=== PATIENT | female | born 1945 | race Caucasian/White ===

== ENCOUNTER → 2020-02-24 12:17 | Outpatient (CLI) | payer MEDICARE, OTHER, SELFPAY ==
--- NOTE | ~2020-02-24 | MM_ITS ---
EXAMINATION: MM screening richar LT w dylan HISTORY: Screening mammogram TECHNIQUE: Craniocaudal and mediolateral oblique 3-D tomosynthesis images were obtained and synthetic 2-D images were generated. CAD analysis was submitted and interpreted. COMPARISON: No prior mammogram is available for comparison at this institution. BREAST PARENCHYMAL COMPOSITION: There are scattered areas of fibroglandular density. FINDINGS: child monitor device overlies the left breast. There is no evidence of suspicious mass, c alcification, or architectural distortion to suggest malignancy in either breast. There has been no s uspicious interval change. IMPRESSION: 1. No mammographic evidence of malignancy. 2. Recommend routine screening mammography in one year. BI-RADS Category 1: Negative Reviewed, dictated and finalized at location A.
== END ==
PROVIDERS: Visit Provider Obstetrics & Gynecology
DX: Z12.31 Encounter for screening mammogram for malignant neoplasm of breast (principal)
CPT/HCPCS: 77063; 77067

== ENCOUNTER 2020-03-21 08:33 | Outpatient (CLI) | payer MEDICARE, OTHER, SELFPAY ==
--- NOTE | ~2020-03-21 | US_ITS ---
EXAMINATION: US carotid duplex BI DATE: 03/21/2020 09:43 INDICATION: Right visual disturbance. Floaters. TECHNIQUE: Grayscale, color Doppler, and pulsed Doppler images of the cervical carotid arteries were obtained. The degree of vessel stenosis is placed in one of the following categories: normal, <50%, 5 0-69%, >=70% but less than near-occlusion, near-occlusion, or total occlusion. Note that percent sten osis relative to normal distal artery lumen diameter is indirectly measured from velocity measurement s as described by Prince, et al. Radiology 2003; 229:340-346. Notes: Normal: Peak systolic velocity <125 centimeters/sec and no plaque <50%. Peak systolic velocity <125 ( EDV <40; ICA/CCA PSV ratio <2.0; used these factors only a tandem lesions or low cardiac output or co ntralateral disease) 50-69 %: PSV 125-230 (EDV 40-100; ratio 2-4) >= 70% but less than near occlusion: PSV greater than 230 (EDV > 100; ratio> 4.0) Near Occlusion: PSV that is variable; markedly narrowed lumen Occlusion: Absent flow on color/spectral Doppler and no lumen on zaidi scale. COMPARISON: None. FINDINGS: RIGHT: The right common carotid artery (CCA) peak systolic velocity (PSV) is 86 cm/s. The right internal car otid artery (ICA) PSV is 92 cm/s. The right ICA end-diastolic velocity (EDV) is 18 cm/s. The right IC A/CCA PSV ratio is 0.8. The external carotid artery (ECA) PSV is 102 cm/s. There is antegrade flow in the right vertebral artery. LEFT: The left CCA PSV is 89 cm/s. The left ICA PSV is 84 cm/s. The left ICA EDV is 18 cm/s. The left ICA/C CA PSV ratio is 0.9. The ECA PSV is 105 cm/s. There is antegrade flow in the left vertebral artery. IMPRESSION: 1. Less than 50% stenosis in the right internal carotid artery by sonographic criteria. 2. Less than 50% stenosis in the left internal carotid artery by sonographic criteria. Reviewed, dictated and finalized at location A. IMPRESSION: 1. Less than 50% stenosis in the right internal carotid artery by sonographic c trina. 2. Less than 50% stenosis in the left internal carotid artery by sonographic asad savage.
== END 2020-03-21 08:34 | disposition home or self-care (01) ==
PROVIDERS: PCP Family Medicine; Visit Provider Specialist
DX: H53.8 Other visual disturbances (principal)
CPT/HCPCS: 93880

== ENCOUNTER 2020-10-06 07:17 | Outpatient (CLI) | payer MEDICARE, OTHER, SELFPAY ==
[2020-10-06 07:54] LABS: Hematocrit 41.4 % (37.0-47.0); Hemoglobin 13.4 g/dL (12.0-15.0); Mean Corpuscular HGB Conc 32.4 g/dl (32-36); Mean Corpuscular Hemoglobin 31.4 pg (26-34); Mean Platelet Volume 9.9 fl (7.4-10.4); Platelet Count Result 161 k/mm3 (150-375); Red Blood Count 4.27 M/mm3 (4.2-5.4); Red Cell Distribution Width 12.7 % (11.5-14.5); White Blood Count 4.3 K/mm3 (4.5-10.0)
[2020-10-06 08:11] LABS: Alanine Aminotransferase 9 U/L (4-35); Albumin Level 4.2 g/dL (3.5-5.1); Alkaline Phosphatase 52 U/L (38-126); Anion Gap 5 mmol/L (8-16); Aspartate Amino Transferase 28 U/L (14-36); Bilirubin,Total 0.5 mg/dL (0.2-1.3); Blood Urea Nitrogen 15 mg/dL (7-17); Calcium 9.3 mg/dL (8.4-10.2); Carbon Dioxide 31 mmol/L (22-30); Chloride 106 mmol/L (98-107); Cholesterol 142 mg/dL (0-200); Estimated Glomerular Filt Rate > 60; Glucose 105 mg/dL (65-105); HDL Direct 66 mg/dL; Potassium 4.1 mmol/L (3.4-5.0); Sodium 142 mmol/L (137-145); Triglycerides 70 mg/dL (<150)
[2020-10-06 08:22] LABS: LDL Cholesterol Direct 50 mg/dL
[2020-10-06 09:36] LABS: Vitamin D 25 Hydroxy 33.5 ng/mL
== END 2020-10-06 07:18 | disposition home or self-care (01) ==
PROVIDERS: PCP Family Medicine; Visit Provider Nurse Practitioner Family
DX: E55.9 Vitamin D deficiency, unspecified (principal); F32.9 Major depressive disorder, single episode, unspecified; I10 Essential (primary) hypertension
CPT/HCPCS: 36415; 80053; 80061; 82306; 84443; 85027

== ENCOUNTER → 2021-02-24 11:24 | Outpatient (CLI) | payer MEDICARE, OTHER, SELFPAY ==
--- NOTE | ~2021-02-24 | MM_ITS ---
EXAMINATION: MM screening richar LT w dylan HISTORY: Screening TECHNIQUE: Craniocaudal and mediolateral oblique 3-D tomosynthesis images were obtained and synthetic 2-D images were generated. CAD analysis was submitted and interpreted. COMPARISON: Comparison to multiple prior studies sequentially, with oldest reviewed study dated 12/08. BREAST PARENCHYMAL COMPOSITION: The breasts are heterogeneously dense, which may obscure small masses . FINDINGS: There is no evidence of suspicious mass, calcification, or architectural distortion to sugg est malignancy in the left breast. There has been no suspicious interval change. IMPRESSION: 1. No mammographic evidence of malignancy. 2. Recommend routine screening mammography in one year. BI-RADS Category 1: Negative Reviewed, dictated and finalized at location A.
== END ==
PROVIDERS: Visit Provider Obstetrics & Gynecology
DX: Z12.31 Encounter for screening mammogram for malignant neoplasm of breast (principal)
CPT/HCPCS: 77063; 77067

== ENCOUNTER → 2021-03-29 14:47 | Outpatient (CLI) | payer MEDICARE, OTHER, SELFPAY ==
--- NOTE | ~2021-03-29 | XR_ITS ---
EXAMINATION: XR shoulder RT min 2V INDICATION: Right shoulder pain TECHNIQUE: Four views of the right shoulder are submitted. COMPARISON: 02/09/2017 FINDINGS: Normal alignment. No fracture. There is mild osteoarthritis of the glenohumeral joint. The acromioclavicular joint is unremarkable. Soft tissues are unremarkable. IMPRESSION: 1. No acute osseous abnormality. Reviewed, dictated and finalized at location A.
== END ==
PROVIDERS: PCP Nurse Practitioner Family; Visit Provider Nurse Practitioner Family
DX: M25.519 Pain in unspecified shoulder (principal)
CPT/HCPCS: 73030

== ENCOUNTER → 2021-05-28 13:34 | Outpatient (CLI) | payer MEDICARE, OTHER, SELFPAY ==
--- NOTE | ~2021-05-28 | XR_ITS ---
XR wrist RT 2V DATE: 05/28/2021 13:51 INDICATION: Right arm pain TECHNIQUE: AP and lateral views of right wrist COMPARISON: None FINDINGS: Diffuse osteopenia. No fracture or dislocation, periosteal reaction or bone destruction. Joint spaces appear relatively p reserved. No erosive change or chondrocalcinosis. IMPRESSION: Osteopenia Reviewed, dictated and finalized at location A. RCE MEDIATOR IMPRESSION: Osteopenia
== END ==
PROVIDERS: PCP Family Medicine; Visit Provider Nurse Practitioner Family
DX: M85.831 Other specified disorders of bone density and structure, right forearm (principal)
CPT/HCPCS: 73100

== ENCOUNTER 2021-07-26 09:21 | Outpatient (CLI) | payer MEDICARE, OTHER, SELFPAY ==
--- NOTE | 2021-07-26 11:00 | NEURO_ITS ---
Impression: # Complains of paresthesia of upper extremities. # No Carpal Tunnel Syndrome or ulnar neuropathy. # Normal nerve conduction study. # Normal needle/EMG exam. # Clinical correlation recommended. Nerve Conduction Studies Anti Sensory Summary Table Stim Site NR Peak (ms) P-T Amp (?V) Site1 Site2 Delta-P (ms) Dist (cm) Dameon (m/s) Left Median Anti Sensory (2-3nd Digit) Wrist 2.8 76.0 Wrist 2-3nd Digit 2.8 14.0 50 Wrist 3.0 54.7 Wrist 2-3nd Digit 2.8 14.0 50 Right Median Anti Sensory (2-3nd Digit) Wrist 3.1 42.7 Wrist 2-3nd Digit 3.1 14.0 45 Wrist 3.2 41.9 Wrist 2-3nd Digit 3.1 14.0 45 Left Radial Anti Sensory (Base 1st Digit) Wrist 2.3 74.8 Wrist Base 1st Digit 2.3 0.0 Right Radial Anti Sensory (Base 1st Digit) Wrist 2.7 17.9 Wrist Base 1st Digit 2.7 0.0 Left Ulnar Anti Sensory (5th Digit) Wrist 2.6 54.8 Wrist 5th Digit 2.6 14.0 54 Right Ulnar Anti Sensory (5th Digit) Wrist 2.7 43.1 Wrist 5th Digit 2.7 14.0 52 Motor Summary Table Stim Site NR Onset (ms) O-P Amp (mV) Site1 Site2 Delta-0 (ms) Dist (cm) Dameon (m/s) Left Median Motor (Abd Poll Brev) Wrist 3.1 4.5 Elbow Wrist 4.9 29.0 59 Elbow 8.0 2.9 Right Median Motor (Abd Poll Brev) Wrist 3.5 4.2 Elbow Wrist 5.0 29.0 58 Elbow 8.5 2.6 Left Ulnar Motor (Abd Dig Minimi) Wrist 2.3 3.8 A Elbow Wrist 4.9 28.0 57 A Elbow 7.2 3.8 Right Ulnar Motor (Abd Dig Minimi) Wrist 2.7 4.0 A Elbow Wrist 4.9 28.0 57 A Elbow 7.6 2.9 F Wave Studies NR F-Lat (ms) L-R F-Lat (ms) Left Median (Mrkrs) (Abd Poll Brev) 27.19 0.55 Right Median (Mrkrs) (Abd Poll Brev) 27.73 0.55 Left Ulnar (Mrkrs) (Abd Dig Min) 27.50 0.35 Right Ulnar (Mrkrs) (Abd Dig Min) 27.15 0.35 EMG Side Muscle Nerve Root Ins Act Fibs Amp Dur Recrt Comment Right 1stDorInt Ulnar C8-T1 Nml Nml Nml Nml Nml Right Ext Indicis Radial (Post Int) C7-8 Nml Nml Nml Nml Nml Right Ext Digitorum Radial (Post Int) C7-8 Nml Nml Nml Nml Nml Right BrachioRad Radial C5-6 Nml Nml Nml Nml Nml Right PronatorTeres Median C6-7 Nml Nml Nml Nml Nml Right Abd Poll Brev Median C8-T1 Nml Nml Nml Nml Nml Left 1stDorInt Ulnar C8-T1 Nml Nml Nml Nml Nml Left Ext Indicis Radial (Post Int) C7-8 Nml Nml Nml Nml Nml Left Ext Digitorum Radial (Post Int) C7-8 Nml Nml Nml Nml Nml Left BrachioRad Radial C5-6 Nml Nml Nml Nml Nml Left PronatorTeres Median C6-7 Nml Nml Nml Nml Nml Left Abd Poll Brev Median C8-T1 Nml Nml Nml Nml Nml MTDD
== END 2021-07-26 09:22 | disposition home or self-care (01) ==
PROVIDERS: PCP Family Medicine; Visit Provider Nurse Practitioner Family
DX: R20.2 Paresthesia of skin (principal)
CPT/HCPCS: 95886; 95911

== ENCOUNTER → 2021-09-07 10:45 | Outpatient (CLI) | payer MEDICARE, OTHER, SELFPAY ==
--- NOTE | ~2021-09-07 | XR_ITS ---
XR_[id number]_CR DATE: 09/07/2021 11:16 INDICATION: Fall. Right sided rib tenderness. TECHNIQUE: The right ribs. 3 views of left ribs. PA chest. COMPARISON: None FINDINGS: soda flaker device overlies the left chest. Prominent osteoarthritic change at the left glenohumeral joint. Mild osteophytic change at the right glenohumeral joint. Heart size is within normal range. Is aortic calcification and mild unfolding. No hilar or mediastina l enlargement. There is mild discoid atelectasis or scarring at the left lung base. The lungs are deanna ar of infiltrate or consolidation. No pleural effusion or pulmonary vascular congestion or pneumothor ax. Diffuse osteopenia. No fracture or bone destruction of the left lower right ribs is evident. IMPRESSION: Osteopenia No rib fracture or bone destruction Right greater than left glenohumeral osteoarthritis Reviewed, dictated and finalized at Location A. Reviewed, dictated and finalized at location A.
== END ==
PROVIDERS: Visit Provider Nurse Practitioner Family
DX: R07.81 Pleurodynia (principal); M85.88 Other specified disorders of bone density and structure, other site
CPT/HCPCS: 71111

== ENCOUNTER → 2021-12-14 11:03 | Outpatient (CLI) | payer MEDICARE, OTHER, SELFPAY ==
--- NOTE | ~2021-12-14 | DEXA_ITS ---
Bone Density Report Name: KAROLINA STEIN Age: 76 Sex: Female Ethnicity: White Date of : 1945 Indication: postmenopausal; screening for osteoporosis; height loss; cancer; Referring Provider: Lizzeth Mcnair Study: Bone densitometry was performed. Exam Date: December 14, 2021 Accession number: [id number] Bone Density: Region BMD T-score Z-score Classification AP Spine (L1-L4) 0.758 -2.6 0.0 Osteoporosis Femoral Neck (Left) 0.676 -1.6 0.7 Osteopenia Total Hip (Left) 0.784 -1.3 0.7 Osteopenia Femoral Neck (Right) 0.700 -1.3 0.9 Osteopenia Total Hip (Right) 0.754 -1.5 0.4 Osteopenia Total Hip Mean 0.769 -1.4 0.6 Osteopenia World Health Organization criteria for BMD impression classify patients as: Normal (T-score at or above -1.0), Osteopenia (T-score between -1.0 and -2.5), or Osteoporosis (T-score at or below -2.5). 10-year Fracture Risk: FRAX not reported because: Some T-score for Spine Total or Hip Total or Femoral Neck at or below -2.5 Clinical Information Provided by Patient: Has used the following medications: Vitamin D Has the following medical conditions: Cancer Patient maximum height was 67.5 Menopause Age: 49 No regular weight bearing exercise Drinks caffeinated beverages Onset of menses at age 11 Number of children 2 Impression: The patient has osteoporosis, based on the Total Spine T-score. Discussion: INCREASED RISK OF FRACTURE. BONE DENSITY IS UNDESIRABLY LOW AT ONE OR MORE SKELETAL SITES, CONSISTENT WITH POSTMENOPAUSAL OSTEOPOROSIS. This patient's lowest T-score meets the World Health Organization's (WHO) criteria for osteoporosis at one or more sites (T-score -2.5 or below). In untreated patients, the risk of osteoporotic fracture increases approximately two-fold for each 1.0 SD decrease in T-score. Low bone density is not the only risk factor for fracture; also consider factors such as patient's age, frailty or poor health, risk of falling, risk of injury, previous osteoporotic fracture, family history of osteoporosis, cigarette smoking, low body weight, etc. Not everyone with low bone mineral density has osteoporosis; osteomalacia and other metabolic bone disorders should also be considered. Patients who have osteoporosis should be evaluated for specific diseases and conditions (secondary causes) that may cause or contribute to bone loss. The [place] [employer] Endocrinologists (AACE) and National Osteoporosis Foundation (NOF) recommend pharmacologic intervention for all postmenopausal women whose T-score is in this range. The patient should follow a healthful lifestyle (good nutrition with adequate calcium and vitamin D, and appropriate weight-bearing exercise). Follow-Up: Consider a repeat BMD and Vertebral Fracture Assessment (VFA) exam in 2 years or sooner if medi
== END ==
PROVIDERS: PCP Family Medicine; Visit Provider Nurse Practitioner Family
DX: Z78.0 Asymptomatic menopausal state (principal); M81.0 Age-related osteoporosis without current pathological fracture; M85.852 Other specified disorders of bone density and structure, left thigh; M85.851 Other specified disorders of bone density and structure, right thigh
CPT/HCPCS: 77080

== ENCOUNTER → 2022-03-11 14:45 | Outpatient (CLI) | payer MEDICARE, OTHER, SELFPAY ==
--- NOTE | ~2022-03-11 | XR_ITS ---
EXAMINATION: XR hip RT min 2V DATE: 03/11/2022 15:19 INDICATION: Polyarticular osteoarthritis, unspecified, chronic hip pain TECHNIQUE: Two views of right hip were obtained. COMPARISON: 11/03/2017 FINDINGS: Bone alignment is normal. There is no fracture. There are phleboliths of the pelvis. There is mild osteoarthritis of the hip. IMPRESSION: 1. Mild osteoarthritis without acute findings. Reviewed, dictated and finalized at location A.
--- NOTE | ~2022-03-11 | XR_ITS ---
EXAMINATION: XR hip LT min 2V DATE: 03/11/2022 15:19 INDICATION: Left hip pain TECHNIQUE: Two views of left hip were obtained. COMPARISON: None. FINDINGS: Bone alignment is normal. There is no fracture. There is mild osteoarthritis of the hip. Ph leboliths are noted in pelvis. There is moderate to severe spondylosis of the visualized lumbar spine . IMPRESSION: 1. Mild osteoarthritis of the hip. Reviewed, dictated and finalized at location A.
--- NOTE | ~2022-03-11 | XR_ITS ---
EXAMINATION: XR knee RT 3V DATE: 03/11/2022 15:19 INDICATION: Polyarticular osteoarthritis TECHNIQUE: Three views of the right knee were obtained. COMPARISON: 11/27/2015 FINDINGS: Alignment is normal. No fracture or osteochondral lesion. There is unchanged mild tricompar tmental osteoarthritis characterized by tiny marginal osteophytes. Chondrocalcinosis of menisci is ag ain noted. There is a tiny joint effusion. Calcified atherosclerosis is noted. IMPRESSION: 1. Unchanged mild right knee osteoarthritis. Reviewed, dictated and finalized at location A.
--- NOTE | ~2022-03-11 | XR_ITS ---
XR knee LT 3V 03/11/2022 15:19 Indication: Left knee pain Procedure: 3 views left knee Comparison: 11/27/2015 Findings: There is mild tricompartment osteoarthritis of the left knee. No fracture, subluxation or d islocation. No significant joint effusion. No foreign bodies. Osteopenia. There is chondrocalcinosis. Impression: 1: Mild osteoarthritis of the left knee. Reviewed, dictated and finalized at location B. Impression: 1: Mild osteoarthritis of the left knee.
== END ==
PROVIDERS: PCP Family Medicine; Visit Provider Internal Medicine
DX: M16.0 Bilateral primary osteoarthritis of hip (principal); M17.0 Bilateral primary osteoarthritis of knee
CPT/HCPCS: 73502; 73562

== ENCOUNTER 2022-03-11 15:38 | Outpatient (CLI) | payer MEDICARE, SELFPAY ==
[2022-03-11 16:15] LABS: Hematocrit 37.6 % (37.0-47.0); Mean Corpuscular HGB Conc 31.9 g/dl (32-36); Mean Corpuscular Hemoglobin 30.8 pg (26-34); Mean Corpuscular Volume 96.4 fl (80-100); Mean Platelet Volume 9.3 fl (7.4-10.4); Platelet Count Result 243 k/mm3 (150-375); Red Cell Distribution Width 13.2 % (11.5-14.5); White Blood Count 4.7 K/mm3 (4.5-10.0)
[2022-03-11 16:32] LABS: Alanine Aminotransferase 14 U/L (6-35); Albumin Level 4.3 g/dL (3.5-5.1); Alkaline Phosphatase 69 U/L (38-126); Anion Gap 11 mmol/L (8-16); Aspartate Amino Transferase 34 U/L (14-36); Bilirubin,Total 0.3 mg/dL (0.2-1.3); Blood Urea Nitrogen 15 mg/dL (7-17); CRP < 0.5 mg/dL (<1.0); Calcium 9.3 mg/dL (8.4-10.2); Carbon Dioxide 29 mmol/L (22-30); Chloride 100 mmol/L (98-107); Estimated Glomerular Filt Rate > 60; Glucose 101 mg/dL (65-110); Potassium 3.9 mmol/L (3.4-5.0); Sodium 140 mmol/L (137-145); Uric Acid 4.3 mg/dL (2.5-7.5)
[2022-03-11 16:39] LABS: Erythrocyte Sedimentation Rate 90 mm/hr (0-20)
[2022-03-11 18:14] LABS: Vitamin D 25 Hydroxy 72.9 ng/mL
== END 2022-03-11 15:39 | disposition home or self-care (01) ==
PROVIDERS: PCP Family Medicine; Visit Provider Internal Medicine
DX: M15.9 Polyosteoarthritis, unspecified (principal); R71.8 Other abnormality of red blood cells; G47.00 Insomnia, unspecified; E55.9 Vitamin D deficiency, unspecified; Z79.899 Other long term (current) drug therapy
CPT/HCPCS: 36415; 80053; 82306; 84443; 84550; 85027; 85652; 86140

== ENCOUNTER 2022-05-18 12:06 | Outpatient (CLI) | payer MEDICARE, SELFPAY ==
--- NOTE | ~2022-05-18 | MM_ITS ---
EXAMINATION: MM screening richar LT w dylan HISTORY: Screening left mammogram, history of right mastectomy TECHNIQUE: Craniocaudal and mediolateral oblique 3-D tomosynthesis images were obtained and synthetic 2-D images were generated. CAD analysis was submitted and interpreted. COMPARISON: 02/24/2021, 02/24/2020, 02/06/2019 BREAST PARENCHYMAL COMPOSITION: There are scattered areas of fibroglandular density. FINDINGS: No suspicious mass, calcification, or architectural distortion are identified in either nuha ast to suggest malignancy. There has been no suspicious interval change. IMPRESSION: 1. No mammographic evidence of malignancy. 2. Recommend routine screening mammography in one year. BI-RADS Category 1: Negative Reviewed, dictated and finalized at location A. TRIMMER
== END 2022-05-18 12:07 | disposition home or self-care (01) ==
LOC: ANHIMG 12:08
PROVIDERS: PCP Emergency Medicine; Visit Provider Obstetrics & Gynecology
DX: Z12.31 Encounter for screening mammogram for malignant neoplasm of breast (principal)
CPT/HCPCS: 77063; 77067

== ENCOUNTER 2022-05-19 07:46 | Outpatient (CLI) | payer MEDICARE, SELFPAY ==
[2022-05-19 08:27] LABS: Hematocrit 36.1 % (37.0-47.0); Hemoglobin 11.6 g/dL (12.0-15.0); Mean Corpuscular HGB Conc 32.1 g/dl (32-36); Mean Corpuscular Hemoglobin 30.4 pg (26-34); Mean Corpuscular Volume 94.8 fl (80-100); Mean Platelet Volume 9.7 fl (7.4-10.4); Platelet Count Result 237 k/mm3 (150-375); Red Blood Count 3.81 M/mm3 (4.2-5.4); Red Cell Distribution Width 13.2 % (11.5-14.5); White Blood Count 8.8 K/mm3 (4.5-10.0)
[2022-05-19 08:37] LABS: Alanine Aminotransferase 10 U/L (6-35); Alkaline Phosphatase 78 U/L (38-126); Anion Gap 5 mmol/L (8-16); Aspartate Amino Transferase 29 U/L (14-36); Bilirubin,Total 0.4 mg/dL (0.2-1.3); Blood Urea Nitrogen 21 mg/dL (7-17); Carbon Dioxide 30 mmol/L (22-30); Chloride 104 mmol/L (98-107); Cholesterol 132 mg/dL (0-200); Estimated Glomerular Filt Rate > 60; Glucose 103 mg/dL (65-110); HDL Direct 53 mg/dL; Potassium 4.1 mmol/L (3.4-5.0); Sodium 139 mmol/L (137-145); Triglycerides 71 mg/dL (<150)
[2022-05-19 08:48] LABS: LDL Cholesterol Direct 45 mg/dL
[2022-05-23 22:32] LABS: Vitamin D 1,25 (OH)2 Total 48 pg/mL (18-72); Vitamin D2 1,25 (OH)2 <8 pg/mL; Vitamin D3 1,25 (OH)2 48 pg/mL
== END 2022-05-19 07:47 | disposition home or self-care (01) ==
LOC: ANHLAB 07:51
PROVIDERS: PCP Emergency Medicine; Visit Provider Emergency Medicine
DX: E55.9 Vitamin D deficiency, unspecified (principal); I10 Essential (primary) hypertension; E03.9 Hypothyroidism, unspecified
CPT/HCPCS: 36415; 80053; 80061; 82652; 84443; 85027

== ENCOUNTER → 2022-07-18 13:38 | Outpatient (CLI) | payer MEDICARE, OTHER, SELFPAY ==
--- NOTE | ~2022-07-18 | XR_ITS ---
Thoracic spine: Clinical Indication: Osteoporosis, fracture AP and lateral views were performed. No fracture is seen. There is normal alignment of the vertebrae. The intervertebral disc spaces appe ar normal. Paravertebral soft tissues appear normal. Cardiac monitoring device noted. Impression: No significant abnormalities noted. Reviewed, dictated and finalized at [facility]. OR DATA MODELER Impression: No significant abnormalities noted.
--- NOTE | ~2022-07-18 | XR_ITS ---
Lumbosacral Spine: AP and lateral views Clinical History: Pain Findings: The normal lordotic curve is maintained. The vertebral bodies and posterior elements are i ntact. Moderate degenerative disc narrowing is present at L4-L5. Facet joint degenerative changes are present from L3 through S1. The sacroiliac joints are normally outlined. Impression: Moderate degenerative disc narrowing at L4-L5. Facet joint degenerative changes, as above. Reviewed, dictated and finalized at location . 911 DISPATCHER Impression: Moderate degenerative disc narrowing at L4-L5. Facet joint degenerative changes, as above.
--- NOTE | ~2022-07-18 | XR_ITS ---
Cervical Spine: AP, lateral, open-mouth views Clinical History: Pain Findings: The normal lordotic curve is maintained. No fracture identified. Minimal grade 1 retrolisth esis of C3 over C4. There is moderate degenerative disc narrowing at C4-C5. Pre-vertebral soft tissue s are unremarkable. Impression: Minimal grade 1 retrolisthesis of C3 over C4. Degenerative disc narrowing at C4-C5. Reviewed, dictated and finalized at [facility]. AREA SUPERVISOR Impression: Minimal grade 1 retrolisthesis of C3 over C4. Degenerative disc narrowing at C4-C5.
== END ==
PROVIDERS: PCP Emergency Medicine; Visit Provider Emergency Medicine
DX: M81.0 Age-related osteoporosis without current pathological fracture (principal)
CPT/HCPCS: 72040; 72070; 72100

== ENCOUNTER → 2022-10-24 15:15 | Outpatient (CLI) | payer MEDICARE, OTHER, SELFPAY ==
--- NOTE | ~2022-10-24 | XR_ITS ---
EXAMINATION: XR hand RT min 3V DATE: 10/24/2022 15:44 INDICATION: Osteoarthritis of the right hand TECHNIQUE: Posteroanterior, oblique and lateral views of the right hand were obtained. COMPARISON: None. FINDINGS: No fractures. Slight ulnar deviation at the second and fifth metacarpophalangeal joints and mild palm ar/ulnar subluxation at the second and third metacarpophalangeal joints. Polyarticular osteoarthritis , moderate severity at the second and third metacarpophalangeal joints and mild at the remaining meta carpophalangeal and majority of the interphalangeal joints. No erosions to suggest inflammatory arthr itis. Diffuse osteopenia. Periarticular soft tissue swelling at the second metacarpophalangeal joint. IMPRESSION: 1. Mild to moderate polyarticular osteoarthritis at the metacarpophalangeal and interphalangeal joint s of the right hand. Reviewed, dictated and finalized at location A. IMPRESSION: 1. Mild to moderate polyarticular osteoarthritis at the metacarpophalangeal and interphalangeal joints of the right hand.
== END ==
PROVIDERS: PCP Emergency Medicine; Visit Provider Plastic Surgery
DX: M19.041 Primary osteoarthritis, right hand (principal)
CPT/HCPCS: 73130

== ENCOUNTER 2022-10-31 11:23 | Outpatient (CLI) | payer MEDICARE, SELFPAY ==
[2022-10-31 11:56] LABS: Basophils Percent Auto 0.5 % (0.2-1.2); Eosinophils Absolute Auto 0.1 K/mm3 (0-0.3); Eosinophils Percent Auto 1.3 % (0-4.4); Hematocrit 38.6 % (37.0-47.0); Hemoglobin 12.1 g/dL (12.0-15.0); Immature Granulocyte Absolute 0.02 K/mm3 (0.00-0.031); Immature Granulocyte Percent A 0.3 % (0-0.5); Lymphocytes Absolute Auto 1.34 K/mm3 (0.9-3.2); Lymphocytes Percent Auto 21.3 % (18.3-44.2); Mean Corpuscular HGB Conc 31.3 g/dl (32-36); Mean Corpuscular Hemoglobin 29.1 pg (26-34); Mean Corpuscular Volume 92.8 fl (80-100); Mean Platelet Volume 10.1 fl (7.4-10.4); Monocytes Absolute Auto 0.7 K/mm3 (0.1-0.6); Monocytes Percent Auto 11.5 % (2.6-8.5); Neutrophils Absolute Auto 4.1 K/mm3 (1.3-6.7); Neutrophils Percent Auto 65.1 % (45.5-73.1); Platelet Count Result 217 k/mm3 (150-375); Red Blood Count 4.16 M/mm3 (4.2-5.4); White Blood Count 6.3 K/mm3 (4.5-10.0)
[2022-10-31 12:10] LABS: Anion Gap 7 mmol/L (8-16); Blood Urea Nitrogen 13 mg/dL (7-17); Calcium 8.9 mg/dL (8.4-10.2); Carbon Dioxide 28 mmol/L (22-30); Chloride 101 mmol/L (98-107); Estimated Glomerular Filt Rate > 60; Glucose 97 mg/dL (65-110); Sodium 136 mmol/L (137-145)
== END 2022-10-31 11:24 | disposition home or self-care (01) ==
PROVIDERS: PCP Emergency Medicine; Visit Provider Nurse Practitioner Adult Health
DX: R00.2 Palpitations (principal)
CPT/HCPCS: 36415; 80048; 83735; 84443; 85025

== ENCOUNTER 2023-02-20 15:04 | Outpatient (CLI) | payer MEDICARE, SELFPAY ==
[2023-02-20 16:33] LABS: Creatine Kinase 29 U/L (30-135)
== END 2023-02-20 15:05 | disposition home or self-care (01) ==
LOC: ANHLAB 15:05
PROVIDERS: PCP Emergency Medicine; Visit Provider Emergency Medicine
DX: M79.10 Myalgia, unspecified site (principal)
CPT/HCPCS: 36415; 82550

== ENCOUNTER 2023-06-02 08:15 | Outpatient (CLI) | payer MEDICARE, SELFPAY ==
[2023-06-02 09:00] LABS: Alanine Aminotransferase 12 U/L (6-35); Albumin Level 3.9 g/dL (3.5-5.1); Alkaline Phosphatase 79 U/L (38-126); Anion Gap 7 mmol/L (8-16); Aspartate Amino Transferase 28 U/L (14-36); Bilirubin,Total 0.6 mg/dL (0.2-1.3); Blood Urea Nitrogen 15 mg/dL (7-17); Calcium 9.4 mg/dL (8.4-10.2); Carbon Dioxide 27 mmol/L (22-30); Chloride 104 mmol/L (98-107); Cholesterol 135 mg/dL (0-200); Estimated Glomerular Filt Rate > 60; Glucose 109 mg/dL (65-110); HDL Direct 58 mg/dL; Potassium 4.1 mmol/L (3.4-5.0); Sodium 138 mmol/L (137-145); Triglycerides 66 mg/dL (<150)
[2023-06-02 09:11] LABS: LDL Cholesterol Direct 49 mg/dL
[2023-06-02 09:32] LABS: Vitamin D 25 Hydroxy 81.4 ng/mL
== END 2023-06-02 08:16 | disposition home or self-care (01) ==
PROVIDERS: PCP Emergency Medicine; Visit Provider Emergency Medicine
DX: E78.2 Mixed hyperlipidemia (principal); E55.9 Vitamin D deficiency, unspecified
CPT/HCPCS: 36415; 80053; 80061; 82306

== ENCOUNTER 2023-10-25 11:59 | Outpatient (CLI) | payer MEDICARE, SELFPAY ==
--- NOTE | ~2023-10-25 | MM_ITS ---
EXAMINATION: MM screening richar LT w dylan HISTORY: Screening mammogram TECHNIQUE: Craniocaudal and mediolateral oblique 3-D tomosynthesis images were obtained and synthetic 2-D images were generated. CAD analysis was submitted and interpreted. COMPARISON: 05/18/2022, 02/24/2021 left screening mammogram examinations BREAST PARENCHYMAL COMPOSITION: The breasts are heterogeneously dense, which may obscure small masses . FINDINGS: There is a monitor device at the upper left breast. There is no evidence of suspicious mass , calcification, or architectural distortion to suggest malignancy in either breast. There has been n o suspicious interval change. IMPRESSION: 1. No mammographic evidence of malignancy. 2. Recommend routine screening mammography in one year. BI-RADS Category 1: Negative Reviewed, dictated and finalized at location B.
== END 2023-10-25 12:00 ==
PROVIDERS: PCP Obstetrics & Gynecology; Visit Provider Obstetrics & Gynecology
DX: Z12.31 Encounter for screening mammogram for malignant neoplasm of breast (principal)
CPT/HCPCS: 77063; 77067

== ENCOUNTER 2024-02-27 13:03 | Outpatient (CLI) | payer MEDICARE, SELFPAY ==
--- NOTE | ~2024-02-27 | XR_ITS ---
EXAM: [id number] DATE: 02/27/2024 13:42 HISTORY: M25.561 - Pain in right knee . COMPARISON: None available. FINDINGS: Decreased mineralization. No fracture or dislocation. No lytic or blastic lesion. Moderate medial and lateral joint space narrowing. Minimal tricompartmental osteophytosis. Minimal subchondra l sclerosis and subchondral cyst formation. Moderate volume joint fluid. Atherosclerotic calcificatio ns. No erosion or periosteal change. Soft tissues within normal limits. IMPRESSION: Osteopenia. Moderate-severe right knee arthritis most pronounced in the medial and latera l compartments. Consider rheumatoid arthritis. Moderate joint effusion. Reviewed, dictated and finalized at location K. IMPRESSION: Osteopenia. Moderate-severe right knee arthritis most pronounced in the medial and lateral compartments. Consider rheumatoid arthritis. Moderate j oint effusion.
--- NOTE | ~2024-02-27 | XR_ITS ---
[id number] Ordering provider: Josh Alcantar MD History: . TRES KNEE PAIN AND POPPING/CRACKING X 1 YEAR, NKI . Comparison: None. FINDINGS: BONES: No acute fracture or dislocation. Osteopenia of the bones. JOINT SPACES: Narrowing of the medial and lateral knee. Narrowing of the patellofemoral joint. SOFT TISSUES: Normal. IMPRESSION: No acute osseous abnormality left knee. Moderate to severe osteoarthritic changes. Reviewed, dictated and finalized at location A.
[2024-02-27 14:31] LABS: Basophils Percent Auto 0.5 % (0.2-1.2); Eosinophils Absolute Auto 0.1 K/mm3 (0-0.3); Eosinophils Percent Auto 1.8 % (0-4.4); Hematocrit 34.1 % (37.0-47.0); Immature Granulocyte Absolute 0.02 K/mm3 (0.00-0.031); Immature Granulocyte Percent A 0.3 % (0-0.5); Lymphocytes Absolute Auto 1.95 K/mm3 (0.9-3.2); Lymphocytes Percent Auto 25.6 % (18.3-44.2); Mean Corpuscular HGB Conc 29.3 g/dl (32-36); Mean Corpuscular Hemoglobin 24.6 pg (26-34); Mean Corpuscular Volume 83.8 fl (80-100); Mean Platelet Volume 9.5 fl (7.4-10.4); Neutrophils Absolute Auto 4.5 K/mm3 (1.3-6.7); Neutrophils Percent Auto 58.8 % (45.5-73.1); Platelet Count Result 388 k/mm3 (150-375); Red Blood Count 4.07 M/mm3 (4.2-5.4); Red Cell Distribution Width 17.2 % (11.5-14.5); White Blood Count 7.6 K/mm3 (4.5-10.0)
[2024-02-27 14:44] LABS: Alanine Aminotransferase 11 U/L (6-35); Alkaline Phosphatase 86 U/L (38-126); Anion Gap 9 mmol/L (4-12); Aspartate Amino Transferase 30 U/L (14-36); Bilirubin,Total 0.5 mg/dL (0.2-1.3); Blood Urea Nitrogen 21 mg/dL (7-17); Carbon Dioxide 28 mmol/L (22-30); Chloride 98 mmol/L (98-107); Estimated Glomerular Filt Rate > 60; Glucose 84 mg/dL (65-110); Potassium 4.3 mmol/L (3.4-5.0); Sodium 135 mmol/L (137-145)
[2024-02-27 14:49] LABS: Hypochromasia 1+; Ovalocytes 1+; Platelet Estimate Slightly Increased (Adequate); Schistocytes None Seen
[2024-02-27 15:11] LABS: Vitamin D 25 Hydroxy 92.8 ng/mL
== END 2024-02-27 13:04 | disposition home or self-care (01) ==
LOC: ANHLAB 13:10
PROVIDERS: PCP Obstetrics & Gynecology; Visit Provider Emergency Medicine
DX: E78.5 Hyperlipidemia, unspecified (principal); E03.9 Hypothyroidism, unspecified; E55.9 Vitamin D deficiency, unspecified; M85.861 Other specified disorders of bone density and structure, right lower leg; M17.0 Bilateral primary osteoarthritis of knee
CPT/HCPCS: 36415; 73560; 80053; 82306; 84443; 85025

== ENCOUNTER 2024-03-22 10:43 | Outpatient (CLI) | payer MEDICARE, SELFPAY ==
--- NOTE | ~2024-03-22 | US_ITS ---
EXAMINATION: US thyroid DATE: 03/22/2024 11:17 INDICATION: Other specified abnormal findings of blood chemistry. TECHNIQUE: Multiple ultrasound images of the thyroid were obtained. COMPARISON: None. FINDINGS: The right thyroid lobe measures 3.0 x 1.4 x 1.1 cm. The left thyroid lobe measures 2.9 x 1.2 x 1.0 c m. There is normal echotexture and echogenicity throughout the thyroid gland. No discrete nodules id entified. Normal vascular flow is present. IMPRESSION: 1. Normal thyroid. Reviewed, dictated and finalized at location A. IMPRESSION: 1. Normal thyroid.
[2024-03-22 12:21] LABS: Rheumatoid Factor > 120.0 IU/ML (<12)
[2024-03-27 08:24] LABS: Anti Nuclear Antibody Pattern Nuclear, Speckled
== END 2024-03-22 10:44 | disposition home or self-care (01) ==
PROVIDERS: PCP Emergency Medicine; Visit Provider Emergency Medicine
DX: R79.89 Other specified abnormal findings of blood chemistry (principal); M06.9 Rheumatoid arthritis, unspecified; D89.89 Other specified disorders involving the immune mechanism, not elsewhere classified
CPT/HCPCS: 36415; 76536; 86038; 86039; 86430

== ENCOUNTER 2024-05-15 14:47 | Outpatient (CLI) | payer MEDICARE, SELFPAY | END 2024-05-15 14:48 | disposition home or self-care (01) | PROVIDERS: PCP Emergency Medicine; Visit Provider Emergency Medicine | DX: E03.9 Hypothyroidism, unspecified (principal) | CPT/HCPCS: 36415; 84443 ==

== ENCOUNTER 2024-08-06 08:34 | Outpatient (CLI) | payer MEDICARE, SELFPAY ==
--- OUTSIDE RECORDS SUMMARY | 2024-08-06 08:50 | XMS_ITS | Clinical Summary ---
Author Organization [facility] [address] Address [address] [place] [address] Care Team Providers Care Fire Technician Name Role Phone Josh Alcantar MD Primary Care Provide r Allergies Active Allergy Reactions Criticality Noted Date Comments Cephalexin Itching Low 02/07/2018 Medications rosuvastatin (CRESTOR) 10 mg tablet take 1 tablet (10MG) by oral route every day 30 6 05/31/2006 Active valsartan (DIOVAN) 320 mg tablet take 1 tablet by oral route every day 0 0 11/26/2014 Active cholecalciferol (Vitamin D3) 4,000 unit capsule Active cyanocobalamin (Vitamin B-12) 1,000 mcg tabletIndication s:Prevention of Vitamin B12 Deficiency Take 1 tablet (1,000 mcg total) by mouth daily Active sertraline (ZOLOFT) 25 mg tablet Take 1 tablet (25 mg total) by mouth daily 12/22/2022 Active acetaminophen (TYLENOL) 500 mg tablet Take 1 tablet (500 mg total) by mouth every 6 (six) hours as needed for pain (arthritis) Active metoprolol (LOPRESSOR) 100 mg tablet TAKE 1 TABLET BY MOUTH TWICE A DAY 180 tablet 3 12/28/2023 Active amLODIPine (NORVASC) 10 mg tablet TAKE 1 TABLET BY MOUTH EVERY DAY 90 tablet 3 12/28/2023 Active Active Problems Problem Noted Date Diagnosed Date SVT (supraventricular tachycardia) 12/09/2022 LBBB (left bundle branch block) 12/09/2022 Syncope and collapse 12/09/2022 History of PSVT (paroxysmal supraventricular tac hycardia) 02/04/2021 Assessment & Plan (02/04/2021 3:48 PM CDT): Status post catheter ablation is for atrial tachycardia in 2005 and 2014. She has experienced recurrence of brief paroxysmal atrial fibrillation, measured in seconds. At present, continued metoprolol is appropriate. Anticoagulation management encounter 02/04/2021 Assessment & Plan (02/04/2021 3:49 PM CDT): The patient is not on anticoagulation. If her atrial arrhythmia burden increases, we will discuss initiation of systemic anticoagulation. The patient will follow-up with me in 24 months for an office visit and twelve- lead ECG. Atrial fibrillation (CMS/HCC) 10/26/2013 Overview (09/16/2016): ATRIAL FIBRILLATION Surgical History Surgery Date Site/Laterality Comments MASTECTOMY 1995 Mastectomy OTHER SURGICAL HISTORY right mastectomy, cholecystectomy Medical History Medical History Date Comments Gastroesophageal reflux disease GERD Hypertension Hypertension Hx Other Medical Arrhythmias PAF Malignant neoplasm of male breast (HCC) Cancer, breast Hx Other Medical Yayo cath thro mbosis, resolved Hx Other Medical Dyslipidemia Family History Medical History Relation Name Comments Heart attack Father Myocardial Infa rction; Cause of : Myocardial Infarction Hypertension Other 2 Hypertension; Relation Name Status Comments Father Other 1 Alive Other 2 Social History Tobacco Use Types Packs/Day Years Used Date Smoking Tobacco: Former Cigarettes Q uit: 1979 Smokeless Tobacco: Never Tobacco Cessation:Counseling Given: Not Answered Comments:Smoking History Packs/day: 1980 Packs Alcohol Use Standard Drinks/Week Comments Yes 0 (1 standard drink = 0.6 oz pur e alcohol) Comments Unknown Sex and Gender Information Value Date Recorded Sex Assigned at Not on file 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 Gender Identity Not on file Sexual Orientation Not on file Obstetrics History Last Filed Vital Signs Vital Sign Reading Time Taken Comments Blood Pressure 110/60 12/06/2023 1:46 PM CDT Pulse 65 12/06/2023 1:46 PM CDT Temperature - - Respiratory Rate - - Oxygen Saturation 96% 12/06/2023 1:46 PM CDT Inhaled Oxygen Concentration - - Weight 44.6 kg (98 lb 6.4 oz) 12/06/2023 1:46 PM CDT Height 165.1 cm (5' 5 ) 12/06/2023 1:46 PM CDT Body Mass Index 16.37 12/06/2023 1:46 PM CDT Plan of Treatment Health Maintenance Due Date Last Done Comments Depression Screening 1945 Fall Risk Assessment 1945 Osteoporosis Screening-Bone Density Scan 1945 DTaP/Tdap/Td Vaccine (1 - Tdap) 09/20/1954 Hepatitis B Screening 09/20/1961 Well Visit 65+ 09/20/2008 Zoster Vaccine (2 of 3) 02/12/2016 12/18/2015, 12/18 Pneumococcal vaccine 65+ (2 of 2 - PPSV23) 05/09/2019 05/09/2018 Influenza Vaccine (#1) 2024 8, 05/22/2017, 04/17/2016, Additional history exists Insurance MEDICARE COMMERCIAL GENERIC MEDICARE COMMERCIAL GENERIC MEDICARE [employer] SUPPLEMENT Care Teams Fire Technician Relationship Specialty Start Date End Date Josh Alcantar MD [address] [place] [address] PCP - General Emergency Medicine 10/25/22
--- OUTSIDE RECORDS SUMMARY | 2024-08-06 08:50 | XMS_ITS | Referral Summary ---
Author Organization [facility] [place] [address] Address [address] [place] [address] Care Team Providers Care Minister Assistant Name Role Phone Josh Alcantar MD Primary [...] visit and twelve- lead ECG. 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
--- OUTSIDE RECORDS SUMMARY | 2024-08-06 08:50 | XMS_ITS | CONTINUITY OF CARE DOCUMENT ---
Author Name opal, opal Address Unknown Organization [facility] Address [address] [place] [address] Phone [phone] Care Team Providers Care Secretary Specialist Name Role Phone Karel CUNHA, Melany Unavailable ISIS CUNHA, HERNANDEZ Unavailable [phone] FLORENTIN CUNHA, YI F Unavailable PROBLEMS Condition Status Date Provider Notes PAC active Wendy Pedraza RN SVT active Wendy Pedraza RN Upper airway obstruction - URAS, to get dental device completed - Lokesh Brand DO Sleep apnea - on CPAP active Lokesh crisostomo DO Hypertension active Lokesh Brand DO Atrial fibrillation active Lokesh Brand DO ENCOUNTERS Date Type Provider Location Encounter Diag nosis - In-person encounter Office Visit Lokesh Brand DO [facility] - In-person encounter Office Visit Lokesh Brand DO [facility] Atrial fibrillation - In-person encounter Office Visit Lokesh Brand DO [facility] Hypertension - In-person encounter Office Visit Lokesh Brand DO [facility] Office Upper airway obstruction - URAS, to get dental deviceSleep apnea - on CPAP - In-person encounter Office Visit Lokesh Brand DO [facility] Office - In-person encounter Office Visit Lokesh Brand DO [facility] - In-person encounter Office Visit Lokesh Brand [facility] Office - In-person encounter Office [facility] VITAL SIGNS Date Observation Value Provider Body Mass Index (Ratio) 22.80 kg/m2 Ryan Montgomery blood pressure, diastolic 70 mm[Hg] Uche Salmonby blood pressure, systolic 104 mm[Hg] Hussein Salmonby pulse rate 63 /min Marce Salmonby oxygen saturation, oximetry 98 % Marce [place] respiratory rate E&M 18 /min [facility], cuff size regular Uche Salmonby weight E&M 137 [lb_av] Marce Marly height E&M 65 [in_i] Marce [place] Body Mass Index (Ratio) 25.29 kg/m2 Carlos thayer [facility] blood pressure, cuff size large Edward [facility]ai [facility], diastolic 100 mm[Hg] Ke rri [facility] blood pressure, systolic 160 mm[Hg] Amber silvino Dinh oxygen saturation, oximetry 97 % Clarice Faria respiratory rate E&M 20 /min Clarice roman pulse rate 66 /min Clarice Alonso [facility] weight E&M 152 [lb_av] Clarice Shaniquanequintone er height E&M 65 [in_i] Clarice Gruenenfe er Body Mass Index (Ratio) 25.12 kg/m2 Jacob Nava respiratory rate E&M 16 /min Chastit kojo Robinson pulse rate 68 /min Chastity Robinson oxygen saturation, oximetry 95 % [facility] blood pressure, diastolic 84 mm[Hg] astity Robinson blood pressure, systolic 156 mm[Hg] Nory stity Robinson weight E&M 151 [lb_av] [facility] height E&M 65 [in_i] [facility] Body Mass Index (Ratio) 24.29 kg/m2 Denn is Cathie FLORES blood pressure, cuff size large Leni Desir blood pressure, diastolic 88 mm[Hg] Leni Desir blood pressure, systolic 153 mm[Hg] Leia rosemary Desir respiratory rate E&M 16 /min Dee Desir oxygen saturation, oximetry 98 % Dee Desir pulse rate 71 /min Dee Desir weight E&M 146 [lb_av] Dee Desir height E&M 65 [in_i] Dee Desir Body Mass Index (Ratio) 23.96 kg/m2 Denn is [facility] blood pressure, diastolic 82 mm[Hg] Uche Salmonby blood pressure, systolic 140 mm[Hg] Ucheunm cancer centerkojo [place] blood pressure, resting Yes [facility], oximetry 96 % Marce Marly pulse rate 69 /min [facility] respiratory rate E&M 18 /min Marce [place] weight E&M 144 [lb_av] Marce [place] height E&M 65 [in_i] [facility] Body Mass Index (Ratio) 23.79 kg/m2 Denn is Lonoke DO blood pressure, diastolic 76 mm[Hg] Uche Salmonby blood pressure, systolic 120 mm[Hg] Uchei evy Salmonby oxygen saturation, oximetry 97 % Marce Luke respiratory rate E&M 16 /min Marce Luke pulse rate 61 /min Marce Luke blood pressure, cuff size regular Uche Luke weight E&M 143 [lb_av] Marce Luke height E&M 65 [in_i] Marce Luke oxygen saturation, oximetry 97 % Rica Merchant blood pressure, diastolic 84 mm[Hg] Edward Seguragina blood pressure, systolic 150 mm[Hg] Srinivasa Merchant pulse rate 71 /min Rica Merchant respiratory rate E&M 14 /min Rica coe Body Mass Index (Ratio) 22.46 kg/m2 Trudi Merchant weight E&M 135 [lb_av] Rica Merchant blood pressure, diastolic 70 mm[Hg] Shannon bhagatha O'Bennett blood pressure, systolic 110 mm[Hg] Kita joshua O'Bennett pulse rate 64 /min Niya O'Bennett oxygen saturation, oximetry 96 % Niya O'Bennett respiratory rate E&M 16 /min Niya O'Bennett Body Mass Index (Ratio) 22.63 kg/m2 Sandeep acuna O'Bennett weight E&M 136 [lb_av] Niya O'Bennett height E&M 65 [in_i] Niya O'Bennett ALLERGIES No Known Drug Allergies HISTORY OF MEDICATION USE Medication Status Instructions Dates Provider Indications Com ments ADVIL ALLERGY SINUS TABLET active take one tablet by mouth twice daily as needed Marce Luke AMLODIPINE BESYLATE 10 MG ORAL TABLET active take one tablet by mouth daily Marce Luke PRED FORTE 1 % OPHTHALMIC SUSPENSION active one drop to affected eye 3 times a day Clarice Faria KETOROLAC TROMETHAMINE 0.5 % OPHTHALMIC SOLUTION active one drop to affected eye 4 times a day Clarice Faria SYSTANE SOLUTION active as needed Barbara Bowers OMEGA-3 FISH OIL 1200 MG ORAL CAPSULE active once daily Marce Luke RHIANNA WOMENS 81-777 MG ORAL TABLET active once daily Niya Villagomez'Bennett L-METHYLFOLATE- B6-B12 TABS 1,000 MG active once daily Marce Luke CALCIUM 500 +D TABLET completed once daily - Marce Luke ACTONEL 150 MG ORAL TABLET completed once a month - Marce Luke METOPROLOL TARTRATE 100 MG TAB active TAKE 1 TABLET BY MOUTH TWICE A DAY Aime Yeboah CRESTOR 10 MG ORAL TABLET active ONE TAB. DAILY Niya Cee DIOVAN 320 MG ORAL TABLET active one tab daily Wendy Pedraza RN SOCIAL HISTORY Date Observation Value Provider social history E&M Quit more jessica amada 30 years ago, smoked 2 ppd for 15 years Smoking History: P atient is a former smoker. Lokesh Brand DO social history reviewed E&M revi ewed - no changes required Lokesh Brand DO number of years as a smoker 15 a Marce Salmonby smoking history, tot al pack/day 2 Marce Marly cigarette use yes Marce Marly smoking status Former smoker Marce Marly social history reviewed E&M revi ewed - no changes required Lokesh Brand DO social history E&M Quit more jessica n 30 years ago, smoked 2 ppd for 15 years Smoking History: P atient is a former smoker. Lokesh Brand DO number of years as a smoker 15 a Clarice Faria smoking history, tot al pack/day 2 Clarice Faria cigarette use yes Clarice guillen smoking status Former smoker Clarice jin number of years as a smoker 15 a Irwin Nava smoking history, tot al pack/day 2 Irwin Nava cigarette use yes Irwin thomas social history reviewed E&M revi ewed - no changes required Lokesh Brand DO social history E&M Smoking Histo ry: Ike keller is a former smoker. Q uit more than 30 years ago, smoked 2 ppd for 15 years Irwin Nava smoking status Former smoker Irwin martinez social history reviewed E&M revi ewed - no changes required Lokesh Brand DO smoking status Never smoker Dee Thang social history E&M Quit 30 years ago, smoked 2 ppd for 15 years Smoking History: Ike keller has never smoked. Davonte Muniz smoking status Never smoker Blas Rivera NP social history reviewed E&M revi ewed - no changes required Blas Rivera NP social history E&M Quit 30 years ago, smoked 2 ppd for 15 years Smoking History: Ike keller has never smoked. Lokesh Brand DO social history reviewed E&M revi ewed - no changes required Lokesh Brand DO number of grandchildren Lokesh Luke smoking status Never smoker Marce Luke smoking status Never smoker Lokesh nielsen DO social history reviewed E&M revi ewed - no changes required Lokesh Brand DO social history E&M S moking History: Ike keller is a former smoker. Q uit 30 years ago, smoked 2 ppd for 15 years Rica Merchant smoking status Never smoker Niya Cee FAMILY HISTORY Family Member Condition Father Family History of Co ronary Artery Disease: INSURANCE PROVIDERS Payer name Policy type / Coverage type [place] red republican ID [facility] [employer] insurance [employer] [id number] [place] MEDICARE PART B Medicare [id number] ADVANCE DIRECTIVES Name Date POWER OF RESIDENCE LIFE DIRECTOR TREATMENT PLAN Date Name Performer Telehealth:ILR impla nted 09/2014. R emote check 01/22/18 shows 0% AF burden, but she previously has had brief PAF lasting only seconds at a time. S he had symptomatic transmissions 12/01/17 with 21 seconds of presumed PAF, HR about 150 bpm. She has had no episodes longer than seconds at a time. W e have discussed possible [place] trial with her but b/c her AF episodes are only lasting seconds at a time, she would not be a candidate at present. R eports occasional episodes of palpitations, lasting only seconds. No significant change in palpitations since last seen. Her ILR reached EOS 05/2018 but she does not wish to have it taken our at this time. Lokesh Brand DO Telehealth: s /p ablation of 2 focal RA tachs 02/24 without recurrence. B rief episodes of probable PAF lasting seconds only. Lokesh Brand DO Electrophysiology:BP today: 104/70 P rior BP: 160/100 (02/15/2018) Lokesh Brand DO Electrophysiology:IL R implanted 09/2014. R emote check 01/22/18 shows 0% AF burden, but she previously has had brief PAF lasting only seconds at a time. S he had symptomatic transmissions 12/01/17 with 21 seconds of presumed PAF, HR about 150 bpm. She has had no episodes longer than seconds at a time. W e have discussed possible [place] trial with her but b/c her AF episodes are only lasting seconds at a time, she would not be a candidate at present. R eports occasional episodes of palpitations, lasting only seconds. No significant change in palpitations since last seen. Her ILR reached EOS 05/2018 but she does not wish to have it taken our at this time. Lokesh Barnd DO Electrophysiology:s/ p ablation of 2 focal RA tachs 02/24 without recurrence. B rief episodes of probable PAF lasting seconds only. Lokesh Brand DO Electrophysiology Follow up :Com pliant with CPAP. Lokesh Brand DO Electrophysiology Fo llow up :BP today: 160/100 P rior BP: 156/84 (08/10/2017) Just starting Norvasc from Dr. Jalloh. Lokesh Brand Electrophysiology Fo llow up :s/p ablation of 2 focal RA tachs 9/15 without recurrence. B rief episodes of probable PAF lasting seconds only. Lokesh Brand Electrophysiology Fo llow up :ILR implanted 09/2014. R emote check 01/22/18 shows 0% AF burden, but she previously has had brief PAF lasting only seconds at a time. S he had symptomatic transmissions 12/01/17 with 21 seconds of presumed PAF, HR about 150 bpm. She has had no episodes longer than seconds at a time. Gerardo de la fuente have discussed possible [place] trial with her but b/c her AF episodes are only lasting seconds at a time, she would not be a candidate at present. Gerardo de la fuente discussed replacement of ILR. It is over 3 years old, and the battery will soon. She does not want it to be replaced at this time. [facility] B P today: 156/84 P rior BP: 153/88 (01/10/2017) [facility]: S /P ablation of 2 focal RA tachs 9/15 without recurrence. B rief episodes of probable PAF lasting seconds only. I f of longer duration, will consider [place] study. [facility] Electrophys[facility]:Mo derate on recent sleep study. Started CPAP. Compliant with use. Lokesh [facility] Electrophysiology: S /P ablation of 2 focal RA tachs 9/15 without recurrence. B rief episodes of probable PAF lasting seconds only. I f of longer duration, will consider [place] study. Lokesh [facility] Electrophysiology Lokesh crisostomo EP [facility] EP:last teto study wa s 05/26. will order new sleep study does not wear cpap due to medicare lack of documentation d /w pt need for compliance Lokeshdenver Rojocock EP: S /P ablation of 2 focal RA tachs 9/15 c ontinues with palps with 5 episodes none lasting longer than 7 seconds last remote check Lokesh Brand EP: s till with occ palps, but better since ablation Lokesh Brand EP: S /P ablation of 2 focal RA tachs 02/24 with no recurrences. continues with palps due to APC's better [facility] lopressor [facility] given D orestes Brand EP:S/P ablation of 2 focal RA tachs 02/24 with no recurrences. continues with palps due to APC's better on lopressor [facility] Cardiology/EP:10 sec ond episode on 04/23/15 in afternoon, 55 second episode on 04/28/15 in am appears to be sinus tachy, but had 1 episode on 04/22 which showed 3 sec PAT at HR 150. no other AT [facility] Cardiology/EP:10 sec ond episode on 04/23/15 in afternoon, 55 second episode on 04/28/15 in am appears to be sinus tachy, but will get Reveal interrogation to see if this could be AT [facility] Cardiology/EP:still with occ palps, but better since ablation [facility] Date Name Complete Echo Sleep Study - split night Sleep Study HISTORY OF PROCEDURES Procedure Date Procedure Name Provider Procedure Notes S tatus EKG Lokesh Brand DO completed Loop Recorder Interrogation, Remote Lokesh Rojocock DO INTERROGATION EVALUATION REMOTE </30 D ILR SYS completed ICM Interrogation, Remote (Tech) Lokesh Rojocock DO INTERROGATION EVAL REMOTE </30 D TECH REVIEW completed Loop Recorder Interrogation, Remote Lokesh Lonoke DO INTERROGATION EVALUATION REMOTE </30 D ILR SYS completed ICM Interrogation, Remote (Tech) Lokesh Lonoke DO INTERROGATION EVAL REMOTE </30 D TECH REVIEW completed Loop Recorder Interrogation, Remote Lokesh Lonoke DO INTERROGATION EVALUATION REMOTE </30 D ILR SYS completed ICM Interrogation, Remote (Tech) Lokesh Lonoke DO INTERROGATION EVAL REMOTE </30 D TECH REVIEW completed EKG Lokesh Lonoke DO completed Loop Recorder Interrogation, Remote Lokesh Lonoke DO INTERROGATION EVALUATION REMOTE </30 D ILR SYS completed ICM Interrogation, Remote (Tech) Lokesh Lonoke DO INTERROGATION EVAL REMOTE </30 D TECH REVIEW completed Loop Recorder Interrogation, Remote Lokesh Lonoke DO INTERROGATION EVALUATION REMOTE </30 D ILR SYS completed ICM Interrogation, Remote (Tech) Lokesh Lonoke DO INTERROGATION EVAL REMOTE </30 D TECH REVIEW completed Loop Recorder Interrogation, Remote Lokesh Lonoke DO INTERROGATION EVALUATION REMOTE </30 D ILR SYS completed ICM Interrogation, Remote (Tech) Lokesh Lonoke DO INTERROGATION EVAL REMOTE </30 D TECH REVIEW completed Loop Recorder Interrogation, Remote Lokesh Lonoke DO INTERROGATION EVALUATION REMOTE </30 D ILR SYS completed ICM Interrogation, Remote (Tech) Lokesh Lonoke DO INTERROGATION EVAL REMOTE </30 D TECH REVIEW completed Loop Recorder Interrogation, Remote Lokesh Lonoke DO INTERROGATION EVALUATION REMOTE </30 D ILR SYS completed ICM Interrogation, Remote (Tech) Lokesh Lonoke DO INTERROGATION EVAL REMOTE </30 D TECH REVIEW completed EKG Lokesh Lonoke DO completed Loop Recorder Interrogation, Remote Lokesh Lonoke DO INTERROGATION EVALUATION REMOTE </30 D ILR SYS completed ICM Interrogation, Remote (Tech) Lokesh Lonoke DO INTERROGATION EVAL REMOTE </30 D TECH REVIEW completed Loop Recorder Interrogation, Remote Lokesh Lonoke DO INTERROGATION EVALUATION REMOTE </30 D ILR SYS completed ICM Interrogation, Remote (Tech) Lokesh Lonoke DO INTERROGATION EVAL REMOTE </30 D TECH REVIEW completed Loop Recorder Interrogation, Remote Lokesh Lonoke DO INTERROGATION EVALUATION REMOTE </30 D ILR SYS completed ICM Interrogation, Remote (Tech) Lokesh Lonoke DO INTERROGATION EVAL REMOTE </30 D TECH REVIEW completed Loop Recorder Interrogation, Remote Lokesh Lonoke DO INTERROGATION EVALUATION REMOTE </30 D ILR SYS completed ICM Interrogation, Remote (Tech) Lokesh Lonoke DO INTERROGATION EVAL REMOTE </30 D TECH REVIEW completed Loop Recorder Interrogation, Remote Lokesh Lonoke DO INTERROGATION EVALUATION REMOTE </30 D ILR SYS completed ICM Interrogation, Remote (Tech) Lokesh Lonoke DO INTERROGATION EVAL REMOTE </30 D TECH REVIEW completed Loop Recorder Interrogation, Remote Lokesh Lonoke DO INTERROGATION EVALUATION REMOTE </30 D ILR SYS completed ICM Interrogation, Remote (Tech) Lokesh Lonoke DO INTERROGATION EVAL REMOTE </30 D TECH REVIEW completed Loop Recorder Interrogation, Remote Lokesh Lonoke DO INTERROGATION EVALUATION REMOTE </30 D ILR SYS completed ICM Interrogation, Remote (Tech) Lokesh Lonoke DO INTERROGATION EVAL REMOTE </30 D TECH REVIEW completed EKG Lokesh Lonoke DO completed SNOMED-CT: [id number] Current Medications Documented Lokesh Lonoke DO completed Loop Recorder Interrogation, Remote Lokesh Lonoke DO INTERROGATION EVALUATION REMOTE </30 D ILR SYS completed ICM Interrogation, Remote (Tech) Lokesh Lonoke DO INTERROGATION EVAL REMOTE </30 D TECH REVIEW completed Loop Recorder Interrogation, Remote Lokesh Lonoke DO INTERROGATION EVALUATION REMOTE </30 D ILR SYS completed ICM Interrogation, Remote (Tech) Lokesh Lonoke DO INTERROGATION EVAL REMOTE </30 D TECH REVIEW completed Schedule Followup Lokesh Glascoc k DO in three months completed EKG Lokesh Lonoke DO completed SNOMED-CT: [id number] Current Medications Documented Lokesh Lonoke DO completed Loop Recorder Interrogation, Remote Lokesh Lonoke DO INTERROGATION EVALUATION REMOTE </30 D ILR SYS completed ICM Interrogation, Remote (Tech) Lokesh Lonoke DO INTERROGATION EVAL REMOTE </30 D TECH REVIEW completed Loop Recorder Interrogation, Remote Lokesh Lonoke DO INTERROGATION EVALUATION REMOTE </30 D ILR SYS completed ICM Interrogation, Remote (Tech) Lokesh Lonoke DO INTERROGATION EVAL REMOTE </30 D TECH REVIEW completed Loop Recorder Interrogation, Remote Lokesh Lonoke DO INTERROGATION EVALUATION REMOTE </30 D ILR SYS completed ICM Interrogation, Remote (Tech) Lokesh Lonoke DO INTERROGATION EVAL REMOTE </30 D TECH REVIEW completed EKG Marce Luke completed SNOMED-CT: [id number] Current Medications Documented Marce Luke completed Loop Recorder Interrogation, Remote Lokesh Lonoke DO INTERROGATION EVALUATION REMOTE </30 D ILR SYS completed ICM Interrogation, Remote (Tech) Lokesh Lonoke DO INTERROGATION EVAL REMOTE </30 D TECH REVIEW completed Loop Recorder Interrogation, Remote Lokesh Lonoke DO INTERROGATION EVALUATION REMOTE </30 D ILR SYS completed ICM Interrogation, Remote (Tech) Lokesh Lonoke DO INTERROGATION EVAL REMOTE </30 D TECH REVIEW completed Loop Recorder Interrogation, Remote Lokesh Lonoke DO INTERROGATION EVALUATION REMOTE </30 D ILR SYS completed ICM Interrogation, Remote (Tech) Lokesh Lonoke DO INTERROGATION EVAL REMOTE </30 D TECH REVIEW completed Loop Recorder Interrogation, Remote Lokesh Lonoke DO INTERROGATION EVALUATION REMOTE </30 D ILR SYS completed ICM Interrogation, Remote (Tech) Lokesh Lonoke DO INTERROGATION EVAL REMOTE </30 D TECH REVIEW completed Loop Recorder Interrogation, Remote Lokesh Lonoke DO INTERROGATION EVALUATION REMOTE </30 D ILR SYS completed ICM Interrogation, Remote (Tech) Lokesh Lonoke DO INTERROGATION EVAL REMOTE </30 D TECH REVIEW completed Loop Recorder Interrogation, Remote Lokesh Lonoke DO INTERROGATION EVALUATION REMOTE </30 D ILR SYS completed ICM Interrogation, Remote (Tech) Lokesh Lonoke DO INTERROGATION EVAL REMOTE </30 D TECH REVIEW completed SNOMED-CT: [id number] Current Medications Documented Lokesh Lonoke DO completed EKG Lokesh Lonoke DO completed Loop Recorder Interrogation, Remote Lokesh Lonoke DO INTERROGATION EVALUATION REMOTE </30 D ILR SYS completed ICM Interrogation, Remote (Tech) Lokesh Lonoke DO INTERROGATION EVAL REMOTE </30 D TECH REVIEW completed Loop Recorder Interrogation, Remote Lokesh Lonoke DO INTERROGATION EVALUATION REMOTE </30 D ILR SYS completed ICM Interrogation, Remote (Tech) Lokesh Lonoke DO INTERROGATION EVAL REMOTE </30 D TECH REVIEW completed Loop Recorder Interrogation, Remote Lokesh Lonoke DO INTERROGATION EVALUATION REMOTE </30 D ILR SYS completed ICM Interrogation, Remote (Tech) Lokesh Lonoke DO INTERROGATION EVAL REMOTE </30 D TECH REVIEW completed Loop Recorder Interrogation, Remote Lokesh Lonoke DO INTERROGATION EVALUATION REMOTE </30 D ILR SYS completed ICM Interrogation, Remote (Tech) Lokesh Lonoke DO INTERROGATION EVAL REMOTE </30 D TECH REVIEW completed Loop Recorder Interrogation, Remote Lokesh Lonoke DO INTERROGATION EVALUATION REMOTE </30 D ILR SYS completed ICM Interrogation, Remote (Tech) Lokesh Lonoke DO INTERROGATION EVAL REMOTE </30 D TECH REVIEW completed EKG Lokesh Lonoke DO completed SNOMED-CT: [id number] Current Medications Documented Lokesh Lonoke DO completed
--- OUTSIDE RECORDS SUMMARY | 2024-08-06 08:50 | XMS_ITS | Encounter Summary ---
Author Organization [facility] Address [address] [address] Care Team Providers Care Laboratory Engineer Name Role Phone Walter Nguyen MD Primary Care Provider [phone] Josh Alcantar MD Primary Care Provide r Encounter Details Date Type Department Care Team (Late st Contact Info) Description 09/27/2016 Orders Only [facility] ProviderRaul MD [address] [place] [address] [phone] Social History Tobacco Use Types Packs/Day Years Used Date Smoking Tobacco: Former Comments:Smoking History Pac ks/day: 1980 Packs Alcohol Use Standard Drinks/Week Comments Yes 0 (1 standard drink = 0.6 oz pur e alcohol) Comments Unknown Sex and Gender Information Value Date Recorded Sex Assigned at Not on file 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 Historical Provider [facility] Final Result documented in this encounter Visit Diagnoses Not on filedocumented in this encounter Care Teams Laboratory Engineer Relationship Specialty Start Date End Date Walter Nguyen MD PCP - General 11/11/14 10/24/22 Josh Alcantar MD [address] [place] [address] PCP - General Emergency Medicine 10/25/22 documented as of this encounter
[2024-08-06 09:49] LABS: Alanine Aminotransferase 12 U/L (6-35); Albumin Level 3.8 g/dL (3.5-5.1); Alkaline Phosphatase 90 U/L (38-126); Anion Gap 8 mmol/L (4-12); Aspartate Amino Transferase 31 U/L (14-36); Bilirubin,Total 0.5 mg/dL (0.2-1.3); Blood Urea Nitrogen 17 mg/dL (7-17); Calcium 9.5 mg/dL (8.4-10.2); Carbon Dioxide 31 mmol/L (22-30); Chloride 101 mmol/L (98-107); Cholesterol 120 mg/dL (0-200); Estimated Glomerular Filt Rate > 60; Glucose 95 mg/dL (65-110); HDL Direct 61 mg/dL; Potassium 4.2 mmol/L (3.4-5.0); Sodium 140 mmol/L (137-145); Triglycerides 68 mg/dL (<150)
[2024-08-06 10:00] LABS: LDL Cholesterol Direct 34 mg/dL
[2024-08-06 10:16] LABS: Vitamin D 25 Hydroxy 90.8 ng/mL
== END 2024-08-06 08:35 | disposition home or self-care (01) ==
LOC: ANHLAB 08:36
PROVIDERS: PCP Emergency Medicine; Visit Provider Emergency Medicine
DX: E78.5 Hyperlipidemia, unspecified (principal); E55.9 Vitamin D deficiency, unspecified
CPT/HCPCS: 36415; 80053; 80061; 82306

== ENCOUNTER 2024-11-06 09:57 | Outpatient (CLI) | payer MEDICARE, SELFPAY ==
--- OUTSIDE RECORDS SUMMARY | 2024-11-06 10:06 | XMS_ITS | Encounter Summary ---
Author Organization [facility] Address [address] [address] Care Team Providers Care Mixer Driver Name Role Phone Walter Nguyen MD Primary Care Provider [phone] Josh Alcantar MD Primary Care Provide r Encounter Details Date Type Department Care Team (Late st Contact Info) Description 09/27/2016 Orders Only [facility] ProviderRaul MD [address] [place] [address] [phone] Social History Tobacco Use Types Packs/Day Years Used Date Smoking Tobacco: Former Comments:Smoking History Pac ks/day: 1980 Packs Alcohol Use Standard Drinks/Week Comments Yes 0 (1 standard drink = 0.6 oz pur e alcohol) Comments Unknown Sex and Gender Information Value Date Recorded Sex Assigned at Not on file 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
--- OUTSIDE RECORDS SUMMARY | 2024-11-06 10:06 | XMS_ITS | Referral Summary ---
Author Organization [facility] [address] Address [address] [place] [address] Care Team Providers Care Orthodontic Treatment Coordinator Name Role Phone Josh Alcantar MD Primary [...] visit and twelve- lead ECG. 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
--- OUTSIDE RECORDS SUMMARY | 2024-11-06 10:06 | XMS_ITS | CONTINUITY OF CARE DOCUMENT ---
Author Name opal, opal Address Unknown Organization [facility] Address [address] [place] [address] Phone [phone] Care Team Providers Care Control Systems Designer Name Role Phone Karel CUNHA, Melany Unavailable ISIS CUNHA, HERNANDEZ Unavailable [phone] FLORENTIN CUNHA, YI Sidra Unavailable PROBLEMS Condition Status Date Provider Notes PAC active Wendy Pedraza RN SVT active Wendy Pedraza RN Upper airway obstruction - URAS, to get dental device completed - Lokesh Brand DO Atrial fibrillation active Lokesh Brand DO Hypertension active Lokesh Brand DO Sleep apnea - on CPAP active Lokesh crisostomo DO ENCOUNTERS Date Type Provider Location Encounter Diag nosis - In-person encounter Office Visit Lokesh Brand DO [facility] Office - In-person encounter Office Visit Lokesh Brand DO [facility] Office Atrial fibrillation - In-person encounter Office Visit Lokesh Brand DO [facility] Office Hypertension - In-person encounter Office Visit Lokesh Brand DO [facility] Office Upper airway obstruction - URAS, to get dental deviceSleep apnea - on CPAP - In-person encounter Office Visit Lokesh Brand DO [facility] Office - In-person encounter Office Visit Lokesh Brand DO [facility] Office - In-person encounter Office Visit Lokesh Brand [facility] Office - In-person encounter Office [facility] VITAL SIGNS Date Observation Value Provider Body Mass Index (Ratio) 22.80 kg/m2 Ryan Montgomery blood pressure, diastolic 70 mm[Hg] Uche Salmonby blood pressure, systolic 104 mm[Hg] Hussein [place] pulse rate 63 /min Marce Salmonby oxygen saturation, oximetry 98 % Marce [place] respiratory rate E&M 18 /min [facility], cuff size regular Uche [place] weight E&M 137 [lb_av] Marce [place] height E&M 65 [in_i] Marce [place] Body Mass Index (Ratio) 25.29 kg/m2 Carlos thayer [facility] blood pressure, cuff size large Edward menchacai [facility], diastolic 100 mm[Hg] Ke rri [facility] blood pressure, systolic 160 mm[Hg] Amber silvino Dinh oxygen saturation, oximetry 97 % Clarice Faria respiratory rate E&M 20 /min Clarice roman pulse rate 66 /min Clarice Alonso [facility] weight E&M 152 [lb_av] Clarice Shaniquanequintone er height E&M 65 [in_i] Clarice Gruenenfe er Body Mass Index (Ratio) 25.12 kg/m2 Jacob Nava respiratory rate E&M 16 /min Chastit kojo Robinson pulse rate 68 /min Chastity Robinson oxygen saturation, oximetry 95 % [facility] blood pressure, diastolic 84 mm[Hg] astity Robinson blood pressure, systolic 156 mm[Hg] Nory stity Robinson weight E&M 151 [lb_av] [facility] height E&M 65 [in_i] [facility] Body Mass Index (Ratio) 24.29 kg/m2 [...] Mass Index (Ratio) 23.96 kg/m2 Denn is [facility] blood pressure, diastolic 82 mm[Hg] Uche Salmonby blood pressure, systolic 140 mm[Hg] [facility] Marly blood pressure, resting Yes [facility] saturation, oximetry 96 % Marce [place] pulse rate 69 /min [facility] respiratory rate E&M 18 /min Marce [place] weight E&M 144 [lb_av] Marce [place] height E&M 65 [in_i] [facility] Body Mass Index (Ratio) 23.79 kg/m2 Denn is [place] DO blood pressure, diastolic 76 mm[Hg] Uche [...] smoking history, tot al pack/day 2 Marce [place] cigarette use yes Marce Marly smoking status Former smoker Marce [place] social history reviewed E&M revi ewed - [...] Payer name Policy type / Coverage type [place] red green party ID [facility] [employer] insurance [employer] [id number] [place] MEDICARE PART B Medicare [id number] ADVANCE DIRECTIVES Name Date POWER OF REJECTOR TREATMENT PLAN Date Name Performer Telehealth:ILR impla nted 09/2014. R emote check 01/22/18 shows 0% AF burden, but she previously has had brief PAF lasting only seconds at a time. S he had symptomatic transmissions 12/01/17 with 21 seconds of presumed PAF, HR about 150 bpm. She has had no episodes longer than seconds at a time. W e have discussed possible [place] trial with her but b/c her AF [...] a time. W e have discussed possible [place] trial with her but b/c her AF episodes are only lasting seconds at a time, she would not be a candidate at present. R eports occasional episodes of palpitations, lasting only seconds. No significant change in palpitations since last seen. Her ILR reached EOS 05/2018 but she does not wish to have it taken our at this time. Lokesh Brand DO Electrophysiology:s/ p ablation of 2 focal [...] Gerardo de la fuente have discussed possible [place] trial with her but b/c her AF episodes are only lasting seconds at a time, she would not be a candidate at present. Gerardo de la fuente discussed replacement of ILR. It is over 3 years old, and the battery will soon. She does not want it to be replaced at this time. [facility]: B P today: 156/84 P rior BP: 153/88 (01/10/2017) [facility]: S /P ablation of 2 focal RA tachs 9/15 without recurrence. B rief episodes of probable PAF lasting seconds only. I f of longer duration, will consider [place] study. [facility] Electrophysiology:Mo derate on recent sleep study. Started CPAP. Compliant with use. Lokesh [facility] Electrophysiology: S /P ablation of 2 focal RA tachs 9/15 without recurrence. B rief episodes of probable PAF lasting seconds only. I f of longer duration, will consider [place] study. Lokesh [facility] Electrophysiology Lkoesh crisostomo EP [facility] EP:last teto study wa s 05/26. will [...] due to APC's better on lopressor [facility]Rx for oral appliance given D orestes Brand EP:S/P ablation of 2 focal RA tachs 02/24 with no recurrences. continues with palps due to APC's better on lopressor [facility] Cardiology/EP:10 sec ond episode on 04/23/15 in afternoon, 55 second episode on 04/28/15 in am appears to be sinus tachy, but had 1 episode on 04/22 which showed 3 sec PAT at HR 150. no other AT [facility] Cardiology/EP:10 sec ond episode on 04/23/15 in afternoon, 55 second episode on 04/28/15 in am appears to be sinus tachy, but will get Reveal interrogation to see if this could be AT [facility] Cardiology/EP:still with occ palps, but better since ablation [facility] Date Name Complete Echo Sleep Study [...] REVIEW completed Loop Recorder Interrogation, Remote Lokesh Anoka DO INTERROGATION EVALUATION REMOTE </30 D ILR SYS completed ICM Interrogation, Remote (Tech) Lokesh Anoka DO INTERROGATION EVAL REMOTE </30 D TECH REVIEW completed Loop Recorder Interrogation, Remote Lokesh Anoka DO INTERROGATION EVALUATION REMOTE </30 D ILR SYS completed ICM Interrogation, Remote (Tech) Lokesh Anoka DO INTERROGATION EVAL REMOTE </30 D TECH REVIEW completed EKG Lokesh Anoka DO completed Loop Recorder Interrogation, Remote Lokesh Anoka DO INTERROGATION EVALUATION REMOTE </30 D ILR SYS completed ICM Interrogation, Remote (Tech) Lokesh Anoka DO INTERROGATION EVAL REMOTE </30 D TECH REVIEW completed Loop Recorder Interrogation, Remote Lokesh Anoka DO INTERROGATION EVALUATION REMOTE </30 D ILR SYS completed ICM Interrogation, Remote (Tech) Lokesh Anoka DO INTERROGATION EVAL REMOTE </30 D TECH REVIEW completed Loop Recorder Interrogation, Remote Lokesh Anoka DO INTERROGATION EVALUATION REMOTE </30 D ILR SYS completed ICM Interrogation, Remote (Tech) Lokesh Anoka DO INTERROGATION EVAL REMOTE </30 D TECH REVIEW completed Loop Recorder Interrogation, Remote Lokesh Anoka DO INTERROGATION EVALUATION REMOTE </30 D ILR SYS completed ICM Interrogation, Remote (Tech) Lokesh Anoka DO INTERROGATION EVAL REMOTE </30 D TECH REVIEW completed Loop Recorder Interrogation, Remote Lokesh Anoka DO INTERROGATION EVALUATION REMOTE </30 D ILR SYS completed ICM Interrogation, Remote (Tech) Lokesh Anoka DO INTERROGATION EVAL REMOTE </30 D TECH REVIEW completed EKG Lokesh Anoka DO completed Loop Recorder Interrogation, Remote Lokesh Anoka DO INTERROGATION EVALUATION REMOTE </30 D ILR SYS completed ICM Interrogation, Remote (Tech) Lokesh Anoka DO INTERROGATION EVAL REMOTE </30 D TECH REVIEW completed Loop Recorder Interrogation, Remote Lokesh Anoka DO INTERROGATION EVALUATION REMOTE </30 D ILR SYS completed ICM Interrogation, Remote (Tech) Lokesh Anoka DO INTERROGATION EVAL REMOTE </30 D TECH REVIEW completed Loop Recorder Interrogation, Remote Lokesh Anoka DO INTERROGATION EVALUATION REMOTE </30 D ILR SYS completed ICM Interrogation, Remote (Tech) Lokesh Anoka DO INTERROGATION EVAL REMOTE </30 D TECH REVIEW completed Loop Recorder Interrogation, Remote Lokesh Anoka DO INTERROGATION EVALUATION REMOTE </30 D ILR SYS completed ICM Interrogation, Remote (Tech) Lokesh Anoka DO INTERROGATION EVAL REMOTE </30 D TECH REVIEW completed Loop Recorder Interrogation, Remote Lokesh Anoka DO INTERROGATION EVALUATION REMOTE </30 D ILR SYS completed ICM Interrogation, Remote (Tech) Lokesh Anoka DO INTERROGATION EVAL REMOTE </30 D TECH REVIEW completed Loop Recorder Interrogation, Remote Lokesh Anoka DO INTERROGATION EVALUATION REMOTE </30 D ILR SYS completed ICM Interrogation, Remote (Tech) Lokesh Anoka DO INTERROGATION EVAL REMOTE </30 D TECH REVIEW completed Loop Recorder Interrogation, Remote Lokesh Anoka DO INTERROGATION EVALUATION REMOTE </30 D ILR SYS completed ICM Interrogation, Remote (Tech) Lokesh Anoka DO INTERROGATION EVAL REMOTE </30 D TECH REVIEW completed EKG Lokesh Anoka DO completed SNOMED-CT: [id number] Current Medications Documented Lokesh Anoka DO completed Loop Recorder Interrogation, Remote Lokesh Anoka DO INTERROGATION EVALUATION REMOTE </30 D ILR SYS completed ICM Interrogation, Remote (Tech) Lokesh Anoka DO INTERROGATION EVAL REMOTE </30 D TECH REVIEW completed Loop Recorder Interrogation, Remote Lokesh Anoka DO INTERROGATION EVALUATION REMOTE </30 D ILR SYS completed ICM Interrogation, Remote (Tech) Lokesh Anoka DO INTERROGATION EVAL REMOTE </30 D TECH REVIEW completed Schedule Followup Lokesh Glascoc k DO in three months completed EKG Lokesh Anoka DO completed SNOMED-CT: [id number] Current Medications Documented Lokesh Anoka DO completed Loop Recorder Interrogation, Remote Lokesh Anoka DO INTERROGATION EVALUATION REMOTE </30 D ILR SYS completed ICM Interrogation, Remote (Tech) Lokehs Anoka DO INTERROGATION EVAL REMOTE </30 D TECH REVIEW completed Loop Recorder Interrogation, Remote Lokesh Anoka DO INTERROGATION EVALUATION REMOTE </30 D ILR SYS completed ICM Interrogation, Remote (Tech) Lokesh Anoka DO INTERROGATION EVAL REMOTE </30 D TECH REVIEW completed Loop Recorder Interrogation, Remote Lokesh Anoka DO INTERROGATION EVALUATION REMOTE </30 D ILR SYS completed ICM Interrogation, Remote (Tech) Lokesh Anoka DO INTERROGATION EVAL REMOTE </30 D TECH REVIEW completed EKG Marce Luke completed SNOMED-CT: [id number] Current Medications Documented Marce Luke completed Loop Recorder Interrogation, Remote Lokesh Anoka DO INTERROGATION EVALUATION REMOTE </30 D ILR SYS completed ICM Interrogation, Remote (Tech) Lokesh Anoka DO INTERROGATION EVAL REMOTE </30 D TECH REVIEW completed Loop Recorder Interrogation, Remote Lokesh Anoka DO INTERROGATION EVALUATION REMOTE </30 D ILR SYS completed ICM Interrogation, Remote (Tech) Lokesh Anoka DO INTERROGATION EVAL REMOTE </30 D TECH REVIEW completed Loop Recorder Interrogation, Remote Lokesh Anoka DO INTERROGATION EVALUATION REMOTE </30 D ILR SYS completed ICM Interrogation, Remote (Tech) Lokesh Anoka DO INTERROGATION EVAL REMOTE </30 D TECH REVIEW completed Loop Recorder Interrogation, Remote Lokesh Anoka DO INTERROGATION EVALUATION REMOTE </30 D ILR SYS completed ICM Interrogation, Remote (Tech) Lokesh Anoka DO INTERROGATION EVAL REMOTE </30 D TECH REVIEW completed Loop Recorder Interrogation, Remote Lokesh Anoka DO INTERROGATION EVALUATION REMOTE </30 D ILR SYS completed ICM Interrogation, Remote (Tech) Lokesh Anoka DO INTERROGATION EVAL REMOTE </30 D TECH REVIEW completed Loop Recorder Interrogation, Remote Lokesh Anoka DO INTERROGATION EVALUATION REMOTE </30 D ILR SYS completed ICM Interrogation, Remote (Tech) Lokesh Anoka DO INTERROGATION EVAL REMOTE </30 D TECH REVIEW completed SNOMED-CT: [id number] Current Medications Documented Lokesh Anoka DO completed EKG Lokesh Anoka DO completed Loop Recorder Interrogation, Remote Lokesh Anoka DO INTERROGATION EVALUATION REMOTE </30 D ILR SYS completed ICM Interrogation, Remote (Tech) Lokesh Anoka DO INTERROGATION EVAL REMOTE </30 D TECH REVIEW completed Loop Recorder Interrogation, Remote Lokesh Anoka DO INTERROGATION EVALUATION REMOTE </30 D ILR SYS completed ICM Interrogation, Remote (Tech) Lokesh Anoka DO INTERROGATION EVAL REMOTE </30 D TECH REVIEW completed Loop Recorder Interrogation, Remote Lokesh Anoka DO INTERROGATION EVALUATION REMOTE </30 D ILR SYS completed ICM Interrogation, Remote (Tech) Lokesh Anoka DO INTERROGATION EVAL REMOTE </30 D TECH REVIEW completed Loop Recorder Interrogation, Remote Lokesh Anoka DO INTERROGATION EVALUATION REMOTE </30 D ILR SYS completed ICM Interrogation, Remote (Tech) Lokesh Anoka DO INTERROGATION EVAL REMOTE </30 D TECH REVIEW completed Loop Recorder Interrogation, Remote Lokesh Anoka DO INTERROGATION EVALUATION REMOTE </30 D ILR SYS completed ICM Interrogation, Remote (Tech) Lokesh Anoka DO INTERROGATION EVAL REMOTE </30 D TECH REVIEW completed EKG Lokesh Anoka DO completed SNOMED-CT: [id number] Current Medications Documented Lokesh Anoka DO completed
--- OUTSIDE RECORDS SUMMARY | 2024-11-06 10:06 | XMS_ITS | Clinical Summary ---
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
[2024-11-06 11:50] LABS: Alanine Aminotransferase 10 U/L (6-35); Alkaline Phosphatase 82 U/L (38-126); Anion Gap 8 mmol/L (4-12); Aspartate Amino Transferase 31 U/L (14-36); Bilirubin,Total 0.4 mg/dL (0.2-1.3); Blood Urea Nitrogen 17 mg/dL (7-17); Calcium 9.1 mg/dL (8.4-10.2); Carbon Dioxide 29 mmol/L (22-30); Chloride 103 mmol/L (98-107); Cholesterol 134 mg/dL (0-200); Estimated Glomerular Filt Rate > 60; Glucose 93 mg/dL (65-110); HDL Direct 66 mg/dL; Sodium 140 mmol/L (137-145); Triglycerides 67 mg/dL (<150)
[2024-11-06 12:00] LABS: LDL Cholesterol Direct 34 mg/dL
== END 2024-11-06 09:58 | disposition home or self-care (01) ==
LOC: ANHLAB 09:58
PROVIDERS: PCP Emergency Medicine; Visit Provider Emergency Medicine
DX: E78.5 Hyperlipidemia, unspecified (principal); E55.9 Vitamin D deficiency, unspecified; R53.83 Other fatigue
CPT/HCPCS: 36415; 80053; 80061; 82306; 84443

== ENCOUNTER 2025-03-10 09:44 | Outpatient (CLI) | payer MEDICARE, SELFPAY ==
--- OUTSIDE RECORDS SUMMARY | 2025-03-10 10:15 | XMS_ITS | Encounter Summary ---
Author Organization [facility] Healthcare Address [address] [place] [address] Care Team Providers Care Apple Thinner Name Role Phone Walter Nguyen MD Primary Care Provider [phone] Josh Alcantar MD Primary Care Provide r Encounter Details Date Type Department Care Team (Late st Contact Info) Description 05/09/2017 Orders Only [facility] [place] Information Management [address] [place] [id number] Scanning, Provider Social History Tobacco Use Types Packs/Day Years Used Date Smoking Tobacco: Former Smokeless Tobacco: Never Comments:Smoking History Pac ks/day: 1980 Packs Alcohol Use Standard Drinks/Week Comments Yes 0 (1 standard drink = 0.6 oz pur e alcohol) Comments Unknown Sex and Gender Information Value Date Recorded Sex Assigned at Not on file Legal Sex Female 10:01 AM RECORDS AND TAPE RECORDINGS ENGINEER Gender Identity Not on file Sexual Orientation Not on file documented as of this encounter Plan of Treatment Not on file documented as of this encounter Procedures Procedure Name Priority Date/Time Associated Diagnosis Comments SCAN - LABS 05/09/2017 documented in this encounter Results * SCAN - LABS (05/09/2017) us Provider Scanning Final Result documented in this encounter Visit Diagnoses Not on filedocumented in this encounter Care Teams Apple Thinner Relationship Specialty Start Date End Date Walter Nguyen MD PCP - General 11/11/14 10/24/22 Josh Alcantar MD [address] [place] [address] PCP - General Emergency Medicine 10/25/22 documented as of this encounter
--- OUTSIDE RECORDS SUMMARY | 2025-03-10 10:15 | XMS_ITS | Encounter Summary ---
Author Organization [facility] Healthcare Address [address] [place] [address] Care Team Providers Care Candy Supervisor Name Role Phone Walter Nguyen MD Primary Care Provider [phone] Josh Alcantar MD Primary Care Provide r Encounter Details Date Type Department Care Team (Late st Contact Info) Description 12/28/2017 Orders Only [facility] [place] [facility] Health Information Management [address] [place] [id number] Scanning, Provider Social History Tobacco Use Types Packs/Day Years Used Date Smoking Tobacco: Former Smokeless Tobacco: Never Comments:Smoking History Pac ks/day: 1980 Packs Alcohol Use Standard Drinks/Week Comments Yes 0 (1 standard drink = 0.6 oz pur e alcohol) Comments Unknown Sex and Gender Information Value Date Recorded Sex Assigned at Not on file Legal Sex Female 10:01 AM CERTIFIED MEETING PROFESSIONAL Gender Identity Not on file Sexual Orientation Not on file documented as of this encounter Plan of Treatment Not on file documented as of this encounter Procedures Procedure Name Priority Date/Time Associated Diagnosis Comments SCAN - LABS 12/28/2017 documented in this encounter Results * SCAN - LABS (12/28/2017) us Provider Scanning Final Result documented in this encounter Visit Diagnoses Not on filedocumented in this encounter Care Teams Candy Supervisor Relationship Specialty Start Date End Date Walter Nguyen MD PCP - General 11/11/14 10/24/22 Josh Alcantar MD [address] [place] [address] PCP - General Emergency Medicine 10/25/22 documented as of this encounter
--- OUTSIDE RECORDS SUMMARY | 2025-03-10 10:15 | XMS_ITS | Encounter Summary ---
Author Organization [facility] Healthcare Address [address] [place] [address] Care Team Providers Care Conical Mixer Name Role Phone Walter Nguyen MD Primary Care Provider + [phone] Walter Nguyen MD Primary Care Provider [phone] Walter Nguyen MD Primary Care Provider [phone] Walter Nguyen MD Primary Care Provider + [phone] Josh Alcantar MD Primary Care Provide r Encounter Details Date Type Department Care Team (Late st Contact Info) Description 03/12/2012 Orders Only [facility] [place] Information [place] [address] [place] [id number] Scanning, Provider Social History Tobacco Use Types Packs/Day Years Used Date Smoking Tobacco: Former Comments:Smoking History Pac ks/day: 1980 Packs Alcohol Use Standard Drinks/Week Comments No 0 (1 standard drink = 0.6 oz pur e alcohol) Comments Unknown Sex and Gender Information Value Date Recorded Sex Assigned at Not on file Legal Sex Female 10:01 AM SUPPORTABILITY ENGINEER Gender Identity Not on file Sexual Orientation Not on file documented as of this encounter Plan of Treatment Not on file documented as of this encounter Procedures Procedure Name Priority Date/Time Associated Diagnosis Comments SCAN - RADIOLOGY/IMAGING 03/12/2012 documented in this encounter Results * SCAN - RADIOLOGY/IMAGING (03/12/2012) Anatomical Region Laterality Modality Other us Provider Scanning Final Result documented in this encounter Visit Diagnoses Not on filedocumented in this encounter Care Teams Conical Mixer Relationship Specialty Start Date End Date Walter Nguyen MD PCP - General 11/11/14 10/24/22 Walter Nguyen MD PCP - General 06/20/14 11/10/14 Walter Nguyen MD PCP - General 04/12/13 06/19/14 Walter Nguyen MD PCP - General 04/19/11 04/11/13 Josh Alcantar MD [address] [place] [address] PCP - General Emergency Medicine 10/25/22 documented as of this encounter
--- OUTSIDE RECORDS SUMMARY | 2025-03-10 10:15 | XMS_ITS | Encounter Summary ---
Author Organization [facility] Healthcare Address [address] [place] [address] Care Team Providers Care Dry Can Tender Name Role Phone Walter Nguyen MD Primary Care Provider [phone] Josh Alcantar MD Primary Care Provide r Encounter Details Date Type Department Care Team (Late st Contact Info) Description 08/19/2017 Orders Only [facility] [place] Health Information Management [address] [place] [id number] Scanning, Provider Social History Tobacco Use Types Packs/Day Years Used Date Smoking Tobacco: Former Smokeless Tobacco: Never Comments:Smoking History Pac ks/day: 1980 Packs Alcohol Use Standard Drinks/Week Comments Yes 0 (1 standard drink = 0.6 oz pur e alcohol) Comments Unknown Sex and Gender Information Value Date Recorded Sex Assigned at Not on file Legal Sex Female 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 Gender Identity Not on file Sexual Orientation Not on file documented as of this encounter Plan of Treatment Not on file documented as of this encounter Procedures Procedure Name Priority Date/Time Associated Diagnosis Comments SCAN - RADIOLOGY/IMAGING 08/19/2017 documented in this encounter Results * SCAN - RADIOLOGY/IMAGING (08/19/2017) Anatomical Region Laterality Modality Other us Provider Scanning Final Result documented in this encounter Visit Diagnoses Not on filedocumented in this encounter Care Teams Dry Can Tender Relationship Specialty Start Date End Date Walter Nguyen MD PCP - General 11/11/14 10/24/22 Josh Alcantar MD [address] [place] [address] PCP - General Emergency Medicine 10/25/22 documented as of this encounter
--- OUTSIDE RECORDS SUMMARY | 2025-03-10 10:15 | XMS_ITS | Encounter Summary ---
Author Organization [facility] Healthcare Address [address] [place] [address] Care Team Providers Care World Designer Name Role Phone Walter Nguyen MD Primary Care Provider [phone] Josh Alcantar MD Primary Care Provide r Encounter Details Date Type Department Care Team (Late st Contact Info) Description 07/24/[address] 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 Gender Identity Not on file Sexual Orientation Not on file documented as of this encounter Plan of Treatment Not on file documented as of this encounter Procedures Procedure Name Priority Date/Time Associated Diagnosis Comments SCAN - LABS 07/24/2017 documented in this encounter Results * SCAN - LABS (07/24/2017) us Provider Scanning Final Result documented in this encounter Visit Diagnoses Not on filedocumented in this encounter Care Teams World Designer Relationship Specialty Start Date End Date Walter Nguyen MD PCP - General 11/11/14 10/24/22 Josh Alcantar MD [address] [place] [address] PCP - General Emergency Medicine 10/25/22 documented as of this encounter
--- OUTSIDE RECORDS SUMMARY | 2025-03-10 10:15 | XMS_ITS | Encounter Summary ---
Author Organization [facility] Medical [facility] Address [address] [address] Care Team Providers Care Felt Hat Mellowing Machine Operator Name Role Phone Walter Nguyen MD Primary Care Provider [phone] Josh Alcantar MD Primary Care Provide r Encounter Details Date Type Department Care Team (Late st Contact Info) Description 09/27/2016 Orders Only [facility] ProviderRaul MD [address] [place] [address] [id number] Social History Tobacco Use Types Packs/Day Years Used Date Smoking Tobacco: Former Comments:Smoking History Pac ks/day: 1980 Packs Alcohol Use Standard Drinks/Week Comments Yes 0 (1 standard drink = 0.6 oz pur e alcohol) Comments Unknown Sex and Gender Information Value Date Recorded Sex Assigned at Not on file Legal Sex Female 10:01 AM DEVELOPMENTAL SERVICES WORKER Gender Identity Not on file Sexual Orientation [...] on filedocumented in this encounter Care Teams Felt Hat Mellowing Machine Operator Relationship Specialty Start Date End Date Walter Nguyen MD PCP - General 11/11/14 10/24/22 Josh Alcantar MD [address] [place] [address] PCP - General Emergency Medicine 10/25/22 documented as of this encounter
--- OUTSIDE RECORDS SUMMARY | 2025-03-10 10:15 | XMS_ITS | Encounter Summary ---
Author Organization [facility] Healthcare Address [address] [place] [address] Care Team Providers Care Repairer Switchgear Name Role Phone Walter Nguyen MD Primary Care Provider [phone] Josh Alcantar MD Primary Care Provide r Encounter Details Date Type Department Care Team (Late st Contact Info) Description 02/23/2017 Orders Only [facility] Health Information Management [address] [place] [id number] Scanning, Provider Social History Tobacco Use Types Packs/Day Years Used Date Smoking Tobacco: Former Smokeless Tobacco: Never Comments:Smoking History Pac ks/day: 1980 Packs Alcohol Use Standard Drinks/Week Comments Yes 0 (1 standard drink = 0.6 oz pur e alcohol) Comments Unknown Sex and Gender Information Value Date Recorded Sex Assigned at Not on file 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 Gender Identity Not on file Sexual Orientation Not on file documented as of this encounter Plan of Treatment Not on file documented as of this encounter Procedures Procedure Name Priority Date/Time Associated Diagnosis Comments SCAN - LABS 02/23/2017 documented in this encounter Results * SCAN - LABS (02/23/2017) us Provider Scanning Final Result documented in this encounter Visit Diagnoses Not on filedocumented in this encounter Care Teams Repairer Switchgear Relationship Specialty Start Date End Date Walter Nguyen MD PCP - General 11/11/14 10/24/22 Josh Alcantar MD [address] [place] [address] PCP - General Emergency Medicine 10/25/22 documented as of this encounter
--- OUTSIDE RECORDS SUMMARY | 2025-03-10 10:15 | XMS_ITS | Clinical Summary ---
Author Organization [facility] [address] Address [address] [place] [address] Care Team Providers Care Cellophane Press Operator Name Role Phone Josh Alcantar MD Primary [...] BY MOUTH TWICE A DAY 180 tablet 12/14/2024 Active amLODIPine (NORVASC) 10 mg tablet TAKE 1 TABLET BY MOUTH EVERY DAY 90 tablet 12/14/2024 Active Active Problems Problem Noted Date Diagnosed [...] Atrial fibrillation 10/26/2013 Overview (09/16/2016): ATRIAL FIBRILLATION Encounters Date Type Department Care Team Description 01/17/2025 Telephone [facility] Cardiology [address] [place] [address] Rishi Jalloh MD from Last 3 Months Surgical History Surgery Date Site/Laterality Comments MASTECTOMY 1994 Mastectomy OTHER SURGICAL HISTORY right mastectomy, cholecystectomy [...] on file 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
[2025-03-10 10:30] LABS: Alanine Aminotransferase 11 U/L (6-35); Albumin Level 4.0 g/dL (3.5-5.1); Alkaline Phosphatase 88 U/L (38-126); Anion Gap 6 mmol/L (4-12); Aspartate Amino Transferase 30 U/L (14-36); Bilirubin,Total 0.5 mg/dL (0.2-1.3); Blood Urea Nitrogen 19 mg/dL (7-17); Calcium 9.2 mg/dL (8.4-10.2); Carbon Dioxide 30 mmol/L (22-30); Chloride 105 mmol/L (98-107); Cholesterol 135 mg/dL (0-200); Estimated Glomerular Filt Rate > 60; Glucose 107 mg/dL (65-110); HDL Direct 57 mg/dL; Potassium 4.0 mmol/L (3.4-5.0); Sodium 141 mmol/L (137-145); Total Protein 8.9 g/dL (6.3-8.2); Triglycerides 64 mg/dL (<150)
[2025-03-10 11:05] LABS: Thyroid Stimulating Hormone 1.970 uIU/mL (0.465-4.680)
== END 2025-03-10 09:45 | disposition home or self-care (01) ==
PROVIDERS: PCP Emergency Medicine; Visit Provider Emergency Medicine
DX: E78.5 Hyperlipidemia, unspecified (principal); R53.83 Other fatigue; E55.9 Vitamin D deficiency, unspecified
CPT/HCPCS: 36415; 80053; 80061; 82306; 84443

== ENCOUNTER 2025-04-25 09:28 | Inpatient (IN) | payer MEDICARE, SELFPAY ==
[2025-04-25] VITALS (10 sets, daily range): BP systolic 126–147; BP diastolic 32–82; PULSE 69–95; RESP 12–18; TEMP 36.4–36.7; O2SAT 90–100; BMI 19.4
--- NOTE | ~2025-04-25 | XR_ITS ---
EXAMINATION: XR chest 1V, 04/25/2025 10:30 BEHAVIORAL ANALYST HISTORY: pre op COMPARISON: No comparisons available. Technique: Single view. Findings: The lungs are clear, no effusion. No pneumothorax. Heart is normal size. Mediastinal and hilar contours are within normal limits. Bony thorax no acute abnormality. Impression: No acute cardiopulmonary abnormality. Reviewed, dictated and finalized at location P. VIORAL ANALYST Impression: No acute cardiopulmonary abnormality.
--- NOTE | ~2025-04-25 | CT_ITS ---
EXAM/PROCEDURE: CT cervical spine wo con HISTORY: fall, possible HI COMPARISON: None available. TECHNIQUE: Cervical spine CT performed FINDINGS: No fracture lucency C1-C7. No gross pre-vertebral or paraspinal soft tissue swelling or hematoma seen. Multilevel degenerative changes throughout the cervical spine with no severe spinal canal stenosis or large disc herniation identified. IMPRESSION: No fracture lucency C1-C7. Reviewed, dictated and finalized at location A. UMER LENDER IMPRESSION: No fracture lucency C1-C7.
--- NOTE | ~2025-04-25 | CT_ITS ---
EXAMINATION: CT pelvis wo con DATE: 04/25/2025 12:20 INDICATION: Right hip fracture and possible pelvic fracture post fall TECHNIQUE: High resolution computed tomography (CT) of the pelvis was performed without intravenous contrast. Additional sagittal and coronal reconstructions were performed. Automated exposure control and iterative reconstruction technique were employed. The dose-length product was 127.64 mGy-cm. COMPARISON: Radiographs dated 04/25/2025 FINDINGS: Transcervical fracture the proximal right femur with proximal migration, anterior displacement, varus angulation and external rotation. Femoral head remains normally located in the right acetabulum but is rotated as with abduction and internal rotation. Nondisplaced sagittal oriented fracture at the right pubic body. No other pelvic fractures identified. Severe lower lumbar spondylosis. Mild bilateral hip and sacroiliac osteoarthritis. Pessary within the vaginal vault. Bladder is normal. Age appropriate atrophy of the uterus and bilateral adnexa. 7 x 5 cm ball of stool at the rectum with mild rectal wall thickening and perirectal stranding suggestive of secondary stercoral colitis. The appendix and visualized portion of the small bowel are normal with no obstruction. 3 mm nonobstructing stone at the lower pole of the right kidney. No free fluid in the pelvis. Ill-defined region of increased density overlying the right greater trochanter most likely representing a post traumatic hematoma/contusion. Small bilateral fat-containing inguinal hernias. IMPRESSION: 1. Transcervical fracture of the proximal right femur with typical pattern of displacement and external rotation. 2. Nondisplaced fracture of the right pubic body. 3. Large ball of stool at rectum with rectal stranding suggesting secondary stercoral colitis. Reviewed, dictated and finalized at location A. ICAL MANAGER IMPRESSION: 1. Transcervical fracture of the proximal right femur with typical pattern of d isplacement and external rotation. 2. Nondisplaced fracture of the right pubic body. 3. Large ball of stool at rectum with rectal stranding suggesting secondary dante rcoral colitis.
--- NOTE | ~2025-04-25 | CT_ITS ---
EXAMINATION: CT brain wo con DATE: 04/25/2025 10:05 INDICATION: Injury TECHNIQUE: Computed tomography (CT) of the head was performed without intravenous contrast. The dose-length product was 605.33 mGy-cm. COMPARISON: None FINDINGS: No intracranial mass effect or hemorrhage. No large acute ischemic event. Calvarial structures appear intact. IMPRESSION: 1. No gross acute intracranial abnormality. Reviewed, dictated and finalized at location A. TRAINING SPECIALIST
--- NOTE | ~2025-04-25 | XR_ITS ---
PROCEDURE/PROCEDURES: XR hip RT 2V w AP pelvis HISTORY: Injury and pain COMPARISON(S): 2021 TECHNIQUE: 6 radiographic images were submitted for interpretation. FINDINGS: Bones: There is a right femoral neck fracture. There is rotation and retraction of the distal fracture fragment. In addition, there is a subtle cortical defect questioned at the superior aspect of the right pubic bone. There are no destructive lesions or other lesions identified. Joints: There are no dislocations identified. There is no evidence of erosive arthropathy. There is a pessary in place IMPRESSION: Right femoral neck fracture. Questionable findings in the right pubic bone. CT is recommended for further evaluation. Reviewed, dictated and finalized at location P. FURNACE OPERATOR IMPRESSION: Right femoral neck fracture. Questionable findings in the right pub ic bone. CT is recommended for further evaluation.
--- NOTE | ~2025-04-25 | XR_ITS ---
EXAMINATION: XR shoulder RT min 2V, 04/25/2025 15:20 MACHINE TRACER HISTORY: trauma COMPARISON: No comparisons available. Findings: No acute fracture or malalignment. Severe degenerative changes, underlying rotator cuff injury suspected. Soft tissues unremarkable. Impression: No acute fracture or malalignment. Reviewed, dictated and finalized at location P. INE TRACER Impression: No acute fracture or malalignment.
--- NOTE | ~2025-04-25 | XR_ITS ---
EXAMINATION: XR pelvis 1-2V, 04/26/2025 14:20 AUTOMOBILE RENTAL CLERK HISTORY: POST OP COMPARISON: No comparisons available. Findings: No fracture or dislocation.Right arthroplasty intact. Moderate left-sided degenerative changes. Soft tissues unremarkable. Impression: No acute fracture or malalignment. Reviewed, dictated and finalized at location P. MOBILE RENTAL CLERK Impression: No acute fracture or malalignment.
--- NOTE | 2025-04-25 09:33 | ECG_ITS ---
Test Date: 2025-04-25 09:48:56 Measurements Intervals [place] Rate: 79 P: 0 TX: 0 QRS: 44 QRSD: 136 T: 70 QT: 401 QTc: 460 Interpretive Statements POOR QUALITY ECG, DIFFICULT INTERPRETATION SUSPECT SINUS RHYTHM LEFT BUNDLE BRANCH BLOCK ABNORMAL ECG No previous ECG available for comparison Electronically Signed On 04-25-2025 13:19:58 MANAGER GAME by Josh Costa M.D.
--- NOTE | 2025-04-25 09:35 | ED_ITS ---
HPI - Extremity Injury (Lower) General Chief Complaint: Extremity Injury, Lower <Nicole Billings PA-C - Last Filed: 04/25/25 12:09> Stated Complaint: fall, R hip pain <Nicole Billings PA-C - Last Filed: 04/25/25 12:09> Time Seen by Provider: 04/25/25 09:35 <Nicole Billings PA-C - Last Filed: 04/25/25 12:09> Source: patient <Nicole Billings PA-C - Last Filed: 04/25/25 12:09> Mode of arrival: EMS <AJAY Don Last Filed: 04/25/25 12:09> Limitations: no limitations <AJAY Don Last Filed: 04/25/25 12:09> History of Present Illness HPI Narrative: Patient is an 79 y/o female, with PMH of HTN, HLD, hypothyroidism, who presents to the ED via EMS with report of R hip pain. Patient reports she tripped and fell onto her concrete patio this morning. Fell onto her back. Is unsure if she hit her head. Denies loss of consciousness. She is not on anticoagulation. Complains of pain throughout her right hip. Unable to get up off the ground. EMS was notified. Denies numbness. Denies any other areas of pain at this time. <Nicole Billings PA-C - Last Filed: 04/25/25 12:09> Related Data Home Medications: Home Medications ?Medication ?Instructions ?Recorded ?Confirmed ?Last Taken ?Type metoprolol tartrate 100 mg tablet 100 mg PO Q12H 08/0704/25/25 04/24/25 History amlodipine 10 mg tablet 10 mg PO DAILY 02/08/2204/1204/24/25 History cyanocobalamin (vitamin B-12) 1,000 mcg PO DAILY 02/2004/25/25 04/24/25 History 1,000 mcg capsule acetaminophen 500 mg tablet 500 mg PO Q6H PRN pain (sc angel 05/16/23 04/25/25 Unknown History (Tylenol Extra Strength) score 1-3) <Nicole Billings PA-C - Last Filed: 04/25/25 12:09> Allergies/Adverse Reactions: Allergies Allergy/AdvReac Type Severity Reaction Status Date / Time cephalexin Allergy Severe ITCHING, Verified 04/25/25 13:17 YEAST INFECTION naproxen Allergy Intermediate Abdominal Verified 04/25/25 13:17 Pain <Nicole Billings PA-C - Last Filed: 04/25/25 12:09> Review of Systems 2 Review of Systems: All systems reviewed & are unremarkable except as noted in HPI. <Nicole Billings PA-C - Last Filed: 04/25/25 12:09> All systems reviewed & are unremarkable except as noted in HPI and below < Nicole Billings PA-C - Last Filed: 04/25/25 12:09> PMFSH Past Medical History Medical History: Medical History (Updated 04/25/25 @ 15:16 by You Vazquez MD) Hypothyroidism (acquired) Mixed hyperlipidemia Paroxysmal atrial fibrillation Fall Generalized weakness Generalized osteoarthritis of multiple sites Depressed Bilateral shoulder pain Rash of groin Sore throat Adult BMI 19-24 kg/sq m RUQ pain Toenail fungus <Nicole Billings PA-C - Last Filed: 04/25/25 12:09> Family History Family History: Family History Mother Hypertension Cerebrovascular accident Family history of malignant neoplasm of ovary Family history of malignant neoplasm Father Family history of coronary artery disease Sibling Family history of malignant neoplasm of testis Other Diabetes mellitus <Nicole Billings PA-C - Last Filed: 04/25/25 12:09> Social History Social History: Social History Smoking status: Former smoker Second hand tobacco smoke exposure: No Alcohol intake: never Substance use: never Substance use type: does not use Do You Feel Safe in your Home?: Yes Lack of Transportation: No Lack of Food: Never True Current Housing: I Have Housing Concerned About Future Housing: No Difficulty Paying Gas/Electric Bills: No Difficulty Paying for Meds: No Currently Unemployed: No Education: Bachelor's Degree Difficulty w/ Childcare or Family Care: No Living arrangements: alone 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 HEAD: Normocephalic, atraumatic. RESPIRATORY: Airway patent, respirations nonlabored. Clear to auscultation bilaterally, no rales, rhonchi, wheezing. CARDIOVASCULAR: Regular rate and rhythm without murmurs, rubs, or gallops. Peripheral pulses intact MUSCULOSKELETAL: Moves all extremities. No gross deformities. Shortening and external rotation noted to right lower extremity knee with tenderness to palpation over right lateral hip joint. Sensation intact throughout right lower extremity. Able to wiggle toes. SKIN: Warm, dry, normal color. NEURO: A&O X3. Speech clear. Cranial nerves II-XII grossly intact. No ataxic movements. PSYCHIATRIC: Appropriate mood and affect. Normal interaction. <AJAY Don Last Filed: 04/25/25 12:09> Course HEAD BONE GRINDER/PA Physician Supervision This visit was performed by both a physician and an Advanced Practice Provider. I performed all aspects of the Medical Decision Making as documented. <Chilo Nguyen DO - Last Filed: 04/25/25 18:16> Vital Signs Vital signs: Vital Signs Temperature 97.6 F 04/25/25 09:28 Pulse Rate 69 04/25/25 09:28 Respiratory Rate 16 04/25/25 09:28 Blood Pressure 147/82 H 04/25/25 09:28 Pulse Oximetry 100 04/25/25 09:28 Oxygen Delivery Room Air 04/25/25 09:28 Temperature 97.9 F 04/25/25 13:21 Pulse Rate 95 04/25/25 13:21 Respiratory Rate 18 04/25/25 13:21 Blood Pressure 126/53 L 04/25/25 13:21 Pulse Oximetry 95 04/25/25 13:21 Oxygen Delivery Room Air 04/25/25 09:28 <AJAY Don Last Filed: 04/25/25 12:09> Vital Signs Temperature 97.6 F 04/25/25 09:28 Pulse Rate 69 04/25/25 09:28 Respiratory Rate 16 04/25/25 09:28 Blood Pressure 147/82 H 04/25/25 09:28 Pulse Oximetry 100 04/25/25 09:28 Oxygen Delivery Room Air 04/25/25 09:28 Temperature 97.9 F 04/25/25 13:21 Pulse Rate 95 04/25/25 13:21 Respiratory Rate 18 04/25/25 13:21 Blood Pressure 126/53 L 04/25/25 13:21 Pulse Oximetry 95 04/25/25 13:21 Oxygen Delivery Room Air 04/25/25 09:28 <Chilo Nguyen DO - Last Filed: 04/25/25 18:16> MDM - Extremity Injury (Lower) MDM Narrative Medical decision making narrative: Patient presented to ED status post mechanical fall with pain to right hip. Unsure of head injury. Vital signs are stable upon arrival. Patient is neurovascularly intact. Exam concerning for right hip fracture with shortening and external rotation noted to right lower extremity. X-ray showing right femoral neck fracture. Also showing possible abnormality of right superior pelvic bone, recommending CT of the pelvis. This was ordered. CT brain and cervical spine without traumatic findings. Chest x-ray clear Laboratory studies grossly unremarkable. Discussed case with Dr. Paulino, orthopedics, will consult, plan for surg tomorrow, NPO after midnight. Discussed case with Dr. Apple, hospitalist, accepted patient for admission. Patient and family updated on imaging results and need for admission/surgery. They are in agreement. <Nicole Billings PA-C - Last Filed: 04/25/25 12:09> Patient presented to ED status post mechanical fall with pain to right hip. Unsure of head injury. Vital signs are stable upon arrival. Patient is neurovascularly intact. Exam concerning for right hip fracture with shortening and external rotation noted to right lower extremity. X-ray showing right femoral neck fracture. Also showing possible abnormality of right superior pelvic bone, recommending CT of the pelvis. This was ordered. CT brain and cervical spine without traumatic findings. Chest x-ray clear Laboratory studies grossly unremarkable. Discussed case with Dr. Paulino, orthopedics, will consult, plan for surg tomorrow, NPO after midnight. Discussed case with Dr. Apple, hospitalist, accepted patient for admission. Patient and family updated on imaging results and need for admission/surgery. They are in agreement. This visit was performed by both a physician and an Advanced Practice Provider. I performed all aspects of the Medical Decision Making as documented. <Chilo Nguyen DO - Last Filed: 04/25/25 18:16> Differential Diagnosis Differential diagnosis: Likely other (Fracture, sprain, strain, contusion) <Chilo Nguyen DO - Last Filed: 04/25/25 18:16> Medical Records Attestation: I reviewed the patient's medical records. <Nicole Billings PA-C - Last Filed: 04/25/25 12:09> Lab Data Attestation: I reviewed the patient's lab results. <Nicole Billings PA-C - Last Filed: 04/25/25 12:09> Result diagrams: 04/25/25 09:48 04/25/25 09:48 <Nicole Billings PA-C - Last Filed: 04/25/25 12:09> Labs: Lab Results 04/25/25 04/25/25 Range/Units 09:48 14:00 WBC 9.8 (4.5-10.0) K/mm3 RBC 4.09 L (4.2-5.4) M/mm3 Hgb 12.2 (12.0-15.0) g/dL Hct 37.8 (37.0-47.0) % MCV 92.4 (80-100) fl MCH 29.8 (26-34) pg MCHC 32.3 (32-36) g/dl RDW 13.2 (11.5-14.5) % Plt Count 167 D (150-375) k/mm3 MPV 10.1 (7.4-10.4) fl Immature Gran % (Auto) 1.0 H (0-0.5) % Neut % (Auto) 71.4 (45.5-73.1) % Lymph % (Auto) 17.4 L (18.3-44.2) % [place] % (Auto) 7.6 (2.6-8.5) % Eos % (Auto) 2.1 (0-4.4) % Baso % (Auto) 0.5 (0.2-1.2) % Lymph # (Auto) 1.71 (0.9-3.2) K/mm3 [place] # (Auto) 0.8 H (0.1-0.6) K/mm3 Eos # (Auto) 0.2 (0-0.3) K/mm3 Baso # (Auto) 0.1 (0.0-0.1) K/mm3 Abs Immat Gran (auto) 0.10 H (0.00-0.031) K/mm3 Absolute Neuts (auto) 7.0 H (1.3-6.7) K/mm3 Absolute Nucleated RBC 0.000 (0.0-0.012) K/mm3 Nucleated RBC % 0.0 (0.0-0.2) % PT 13.6 (11.1-14.7) Seconds INR 1.0 APTT 25.7 (22.3-36.8) Seconds Sodium 136 L (137-145) mmol/L Potassium 4.0 (3.4-5.0) mmol/L Chloride 103 (98-107) mmol/L Carbon Dioxide 23 (22-30) mmol/L Anion Gap 10 (4-12) mmol/L BUN 19 H (7-17) mg/dL Creatinine 0.50 L (0.7-1.0) mg/dL Estim Creat Clear Calc Not Reportable Estimated GFR > 60 (59 - ) Glucose 125 H (65-110) mg/dL Calcium 8.9 (8.4-10.2) mg/dL Total Bilirubin 0.6 (0.2-1.3) mg/dL AST 39 H (14-36) U/L ALT 15 (6-35) U/L Alkaline Phosphatase 93 (38-126) U/L Troponin I < 0.012 (0.000-0.034) ng/mL Total Protein 8.4 H (6.3-8.2) g/dL Albumin 4.1 (3.5-5.1) g/dL Urine Color Yellow (Yellow) Urine Appearance Cloudy H (Clear) Urine pH 7.5 (5.0-9.0) Ur Specific [place] 1.014 (1.001-1.035) Urine Protein Trace (Negative) mg/dL Urine Glucose (UA) Negative (Negative) mg/dL Urine Ketones Negative (Negative) mg/dL Ur Blood (Man) 1+ H (Negative) Urine Nitrate Positive H (Negative) Urine Bilirubin Negative (Negative) Urine Urobilinogen 1.0 (<2.0) mg/dL Leukocyte Esterase Rfl Trace H (Negative) TANG/UL Urine RBC 6-10 H (0-2) /hpf Urine WBC 0-5 (0-3) /hpf Ur Squamous Epith Cells None seen (Few) /hpf Urine Bacteria 4+ /hpf Urine Casts 0-2 <Nicole Billings PA-C - Last Filed: 04/25/25 12:09> Lab Results 04/25/25 04/25/25 Range/Units 09:48 14:00 WBC 9.8 (4.5-10.0) K/mm3 RBC 4.09 L (4.2-5.4) M/mm3 Hgb 12.2 (12.0-15.0) g/dL Hct 37.8 (37.0-47.0) % MCV 92.4 (80-100) fl MCH 29.8 (26-34) pg MCHC 32.3 (32-36) g/dl RDW 13.2 (11.5-14.5) % Plt Count 167 D (150-375) k/mm3 MPV 10.1 (7.4-10.4) fl Immature Gran % (Auto) 1.0 H (0-0.5) % Neut % (Auto) 71.4 (45.5-73.1) % Lymph % (Auto) 17.4 L (18.3-44.2) % [place] % (Auto) 7.6 (2.6-8.5) % Eos % (Auto) 2.1 (0-4.4) % Baso % (Auto) 0.5 (0.2-1.2) % Lymph # (Auto) 1.71 (0.9-3.2) K/mm3 [place] # (Auto) 0.8 H (0.1-0.6) K/mm3 Eos # (Auto) 0.2 (0-0.3) K/mm3 Baso # (Auto) 0.1 (0.0-0.1) K/mm3 Abs Immat Gran (auto) 0.10 H (0.00-0.031) K/mm3 Absolute Neuts (auto) 7.0 H (1.3-6.7) K/mm3 Absolute Nucleated RBC 0.000 (0.0-0.012) K/mm3 Nucleated RBC % 0.0 (0.0-0.2) % PT 13.6 (11.1-14.7) Seconds INR 1.0 APTT 25.7 (22.3-36.8) Seconds Sodium 136 L (137-145) mmol/L Potassium 4.0 (3.4-5.0) mmol/L Chloride 103 (98-107) mmol/L Carbon Dioxide 23 (22-30) mmol/L Anion Gap 10 (4-12) mmol/L BUN 19 H (7-17) mg/dL Creatinine 0.50 L (0.7-1.0) mg/dL Estim Creat Clear Calc Not Reportable Estimated GFR > 60 (59 - ) Glucose 125 H (65-110) mg/dL Calcium 8.9 (8.4-10.2) mg/dL Total Bilirubin 0.6 (0.2-1.3) mg/dL AST 39 H (14-36) U/L ALT 15 (6-35) U/L Alkaline Phosphatase 93 (38-126) U/L Troponin I < 0.012 (0.000-0.034) ng/mL Total Protein 8.4 H (6.3-8.2) g/dL Albumin 4.1 (3.5-5.1) g/dL Urine Color Yellow (Yellow) Urine Appearance Cloudy H (Clear) Urine pH 7.5 (5.0-9.0) Ur Specific [place] 1.014 (1.001-1.035) Urine Protein Trace (Negative) mg/dL Urine Glucose (UA) Negative (Negative) mg/dL Urine Ketones Negative (Negative) mg/dL Ur Blood (Man) 1+ H (Negative) Urine Nitrate Positive H (Negative) Urine Bilirubin Negative (Negative) Urine Urobilinogen 1.0 (<2.0) mg/dL Leukocyte Esterase Rfl Trace H (Negative) TANG/UL Urine RBC 6-10 H (0-2) /hpf Urine WBC 0-5 (0-3) /hpf Ur Squamous Epith Cells None seen (Few) /hpf Urine Bacteria 4+ /hpf Urine Casts 0-2 <Chilo Nguyen DO - Last Filed: 04/25/25 18:16> Imaging Data Attestation: I personally reviewed and interpreted this imaging study as follows: < Nicole Billings PA-C - Last Filed: 04/25/25 12:09> Radiologist's impression: ITS Impressions Head CT 04/25/25 10:06 IMPRESSION: 1. No gross acute intracranial abnormality. Cervical Spine CT 04/25/25 10:07 IMPRESSION: No fracture lucency C1-C7. Chest X-Ray 04/25/25 10:43 Impression: No acute cardiopulmonary abnormality. Hip/Pelvis X-Ray 04/25/25 10:43 IMPRESSION: Right femoral neck fracture. Questionable findings in the right pubic bone. CT is recommended for further evaluation. <Nicole Billings PA-C - Last Filed: 04/25/25 12:09> ECG Data EKG #1: Attestation: I personally reviewed and interpreted this ECG as follows: <Nicole Billings PA-C - Last Filed: 04/25/25 12:09> ECG completion date: 04/25/25 <iNcole Billings PA-C - Last Filed: 04/25/25 12:09> ECG completion time: 09:48 <Nicole Billings PA-C - Last Filed: 04/25/25 12:09> EKG Interpretation: normal rate (79), sinus rhythm, non-specific ST changes and other (Baseline artifact and wander) <AJAY Don Last Filed: 04/25/25 12:09> Discharge Plan Discharge Clinical Impression: Fall from ground level Femoral neck fracture Qualifiers: Encounter type: initial encounter Fracture type: closed Laterality: right Q ualified Code(s): S72.001A - Fracture of unspecified part of neck of right femur, initial encounter for closed fracture <AJAY Don Last Filed: 04/25/25 12:09> Patient Disposition: Still a Patient <Nicole Billings PA-C - Last Filed: 04/25/25 12:09> Condition: Stable <Nicole Billings PA-C - Last Filed: 04/25/25 12:09>
[2025-04-25] MEDS: MORPHINE SULFATE (*CRX) 4 MG/ML INJ IV PUSH (09:39)
[2025-04-25] MEDS: ONDANSETRON INJ 4 MG/2 ML VIAL IV PUSH ×2 (09:39→12:23)
[2025-04-25 09:57] LABS: Hematocrit 37.8 % (37.0-47.0); Hemoglobin 12.2 g/dL (12.0-15.0); Immature Granulocyte Percent A 1.0 % (0-0.5); Lymphocytes Absolute Auto 1.71 K/mm3 (0.9-3.2); Mean Corpuscular HGB Conc 32.3 g/dl (32-36); Mean Corpuscular Hemoglobin 29.8 pg (26-34); Mean Corpuscular Volume 92.4 fl (80-100); Nucleated Red Blood Cells Absolute Auto 0.000 K/mm3 (0.0-0.012); Nucleated Red Blood Cells Perc 0.0 % (0.0-0.2); Platelet Count Result 167 k/mm3 (150-375); Red Blood Count 4.09 M/mm3 (4.2-5.4); White Blood Count 9.8 K/mm3 (4.5-10.0)
[2025-04-25 10:08] LABS: INR 1.0; Prothrombin Time 13.6 Seconds (11.1-14.7)
[2025-04-25 10:09] LABS: Partial Thromboplastin Time 25.7 Seconds (22.3-36.8)
--- NOTE | 2025-04-25 10:10 | ECG_ITS ---
Test Date: 2025-04-25 10:13:55 Measurements Intervals [place] Rate: 78 P: 72 MA: 187 QRS: -5 QRSD: 146 T: 67 QT: 417 QTc: 477 Interpretive Statements SINUS RHYTHM LEFT BUNDLE BRANCH BLOCK [120+ ms QRS DURATION, 80+ ms Q/S IN V1/V2, 85+ ms R IN I/aVL/V5/V6] ABNORMAL ECG Compared to ECG 04/25/2025 09:48:56 No significant changes Electronically Signed On 04-25-2025 13:21:56 OIL PIPE INSPECTOR by Josh Costa M.D.
[2025-04-25 10:16] LABS: Alanine Aminotransferase 15 U/L (6-35); Albumin Level 4.1 g/dL (3.5-5.1); Alkaline Phosphatase 93 U/L (38-126); Anion Gap 10 mmol/L (4-12); Aspartate Amino Transferase 39 U/L (14-36); Bilirubin,Total 0.6 mg/dL (0.2-1.3); Blood Urea Nitrogen 19 mg/dL (7-17); Calcium 8.9 mg/dL (8.4-10.2); Carbon Dioxide 23 mmol/L (22-30); Chloride 103 mmol/L (98-107); Estimated Glomerular Filt Rate > 60; Glucose 125 mg/dL (65-110); Potassium 4.0 mmol/L (3.4-5.0); Sodium 136 mmol/L (137-145); Total Protein 8.4 g/dL (6.3-8.2)
[2025-04-25 10:43] LABS: Troponin I < 0.012 ng/mL (0.000-0.034)
[2025-04-25] MEDS: MORPHINE SULFATE (*CRX) 4 MG/ML INJ 2 MG IV PUSH (12:23)
--- NOTE | 2025-04-25 12:33 | P.HP_ITS ---
H&P: HPI History of Present Illness Date/Time: 04/25/25 12:33 Chief Complaint: right hip pain Narrative: 79-year-old female past medical history of hypertension, hyperlipidemia, hypothyroidism, presents the hospital after a fall with right hip pain. She states that she tripped and fell onto a concrete patio this morning she is unsure if she hit her head however she denies losing consciousness. Patient was unable to get up off the ground due to pain and EMS was called. lab work in the ED shows sodium of 136, BUN of 19, creatinine of 0.5, glucose of 125, CT cervical spine shows no acute fracture, CT head shows no acute process. chest x-ray with no acute process. CT pelvis shows Transcervical fracture of the proximal right femur with typical pattern of displacement and external rotation, Nondisplaced fracture of the right pubic body, and Large ball of stool at rectum with rectal stranding suggesting secondary stercoral colitis. Orthopedics consulted. Review of Systems Review of Systems: 12 systems were reviewed and are negative except for as per HPI. PENDING SALE TO [facility] Past Medical History Medical History (Updated 04/25/25 @ 22:19 by Vesna Lara, MAINTENANCE OF WAY FOREMAN) Hypothyroidism (acquired) Mixed hyperlipidemia Paroxysmal atrial fibrillation Fall Generalized weakness Generalized osteoarthritis of multiple sites Depressed Bilateral shoulder pain Rash of groin Sore throat Adult BMI 19-24 kg/sq m RUQ pain Toenail fungus Family History Family History Mother Hypertension Cerebrovascular accident Family history of malignant neoplasm of ovary Family history of malignant neoplasm Father Family history of coronary artery disease Sibling Family history of malignant neoplasm of testis Other Diabetes mellitus Social History Social History Smoking status: Former smoker Second hand tobacco smoke exposure: No Alcohol intake: never Substance use: never Substance use type: does not use Do You Feel Safe in your Home?: Yes Lack of Transportation: No Lack of Food: Never True Current Housing: I Have Housing Concerned About Future Housing: No Difficulty Paying Gas/Electric Bills: No Difficulty Paying for Meds: No Currently Unemployed: No Education: Bachelor's Degree Difficulty w/ Childcare or Family Care: No Living arrangements: alone 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 Gender identity (if verbalized by the patient): Female Spiritual care concerns: No Meds Home Medications and Allergies Home Medications ?Medication ?Instructions ?Recorded ?Confirmed ?Type metoprolol tartrate 100 mg tablet 100 mg PO Q12H 08/0704/25/25 History amlodipine 10 mg tablet 10 mg PO DAILY 02/08/2204/12 History cyanocobalamin (vitamin B-12) 1,000 mcg PO DAILY 02/2004/25/25 History 1,000 mcg capsule acetaminophen 500 mg tablet 500 mg PO Q6H PRN pain (sc angel 05/16/23 04/25/25 History (Tylenol Extra Strength) score 1-3) valsartan 320 mg tablet See Rx Instructions .Route 0 09/09/24 04/25/25 Rx .COMPLEX #90 tabs cholecalciferol (vitamin D3) 50 50 mcg PO DAILY #90 ca ps 09/10/24 04/25/25 Rx mcg (2,000 unit) capsule duloxetine 60 mg capsule,delayed 60 mg PO DAILY #90 ca ps 11/12/24 04/25/25 Rx release celecoxib 200 mg capsule See Rx Instructions .Route 0 11/18/24 04/25/25 Rx .COMPLEX #90 caps levothyroxine 50 mcg tablet See Rx Instructions .Route 11/25/24 04/25/25 Rx .COMPLEX #90 tabs rosuvastatin 10 mg tablet See Rx Instructions .Route 0 12/19/24 04/25/25 Rx .COMPLEX #90 tabs Allergies Allergy/AdvReac Type Severity Reaction Status Date / Time cephalexin Allergy Severe ITCHING, Verified 04/25/25 13:17 YEAST INFECTION naproxen Allergy Intermediate Abdominal Verified 04/25/25 13:17 Pain Vital Signs Vital Signs - 24 hr 04/25/25 09:28 04/25/25 09:36 04/25/25 09:37 Temperature 97.6 F Pulse Rate 69 79 76 Respiratory Rate 16 17 17 Blood Pressure 147/82 H 147/82 H Pulse Oximetry 100 100 100 Oxygen Delivery Room Air 04/25/25 10:15 04/25/25 10:46 04/25/25 11:31 Temperature Pulse Rate 81 90 85 Respiratory Rate 16 14 14 Blood Pressure 146/75 H 133/63 Pulse Oximetry 96 95 90 Oxygen Delivery 04/25/25 11:46 Temperature Pulse Rate 88 Respiratory Rate 12 Blood Pressure 133/60 Pulse Oximetry 96 Oxygen Delivery Exam Narrative: General: well appearing, appears stated age. HEENT: normocephalic, atraumatic. Mucous membranes moist. EOMI, PERRLA, bilateral sclera anicteric, no conjunctival injection. Neck supple without JVD, lymphadenopathy, or bruit. Respiratory: clear bilaterally. No rales/rhonic/wheezes. Cardiovascular: Regular rate and rhythm, normal S1-S2. No murmurs, rubs, or clicks. PMI is nondisplaced, capillary refill less than 3 second. Abdomen: Soft, round, no pulsatile masses, nondistended and nontender. No rebound, no guarding. Bowel sounds present to all four quadrants. No high pitch or tinkling sounds, resonant to percussion. Extremities: No cyanosis, clubbing, or edema present. Pulses are palpable 2/2. Right lower extremity limited range of motion due to acute pain Neuro: Alert and orientated x 4. PERRLA. Cranial nerves 2-12 intact without focal deficit. Skin: Warm, dry, and intact, without rash, erythema, or lesion. Psych: pleasant, cooperative, normal speech, normal affect, no hallucinations, no dysarthia H&P: Results Labs Labs: Short CBC 04/25/25 Range/Units 09:48 WBC 9.8 (4.5-10.0) K/mm3 Hgb 12.2 (12.0-15.0) g/dL Hct 37.8 (37.0-47.0) % Plt Count 167 D (150-375) k/mm3 [facility] 04/25/25 09:48 Sodium 136 L Potassium 4.0 Chloride 103 Carbon Dioxide 23 BUN 19 H Creatinine 0.50 L Glucose 125 H Calcium 8.9 Cardiac Enzymes 04/25/25 Range/Units 09:48 Troponin I < 0.012 (0.000-0.034) ng/mL Liver Function 04/25/25 Range/Units 09:48 Total Bilirubin 0.6 (0.2-1.3) mg/dL AST 39 H (14-36) U/L ALT 15 (6-35) U/L Alkaline Phosphatase 93 (38-126) U/L Albumin 4.1 (3.5-5.1) g/dL Assessment and Plan Assessment and plan (1) Fall from ground level: Code(s): W18.30XA - Fall on same level, unspecified, initial encounter Status: Acute Assessment and Plan: UA pending PT OT after surgery fall precautions (2) Femoral neck fracture: Qualifiers: Encounter type: initial encounter Fracture type: closed Laterality: right Qualified Code(s): S72.001A - Fracture of unspecified part of neck of right femur, initial encounter for closed fracture Code(s): S72.009A - Fracture of unspecified part of neck of unspecified femur, initial encounter for closed fracture Status: Acute Assessment and Plan: orthopedics consulted NPO midnight okay for diet now possible surgery in the morning pain management bowel protocol (3) Stercoral colitis: Code(s): K52.89 - Other specified noninfective gastroenteritis and colitis Status: Deleted Assessment and Plan: GI consulted Case reviewed or patient determined that it was not stercoral colitis and signed off (4) Fecal impaction: Code(s): K56.41 - Fecal impaction Status: Deleted Assessment and Plan: Stool ball in rectum Senna (5) Essential (primary) hypertension: Code(s): I10 - Essential (primary) hypertension Status: Acute Assessment and Plan: Continue amlodipine (6) Paroxysmal atrial fibrillation: Code(s): I48.0 - Paroxysmal atrial fibrillation Status: Acute Assessment and Plan: Continue metoprolol (7) Mixed hyperlipidemia: Code(s): E78.2 - Mixed hyperlipidemia Status: Acute Assessment and Plan: Continue Crestor (8) Hypothyroidism (acquired): Code(s): E03.9 - Hypothyroidism, unspecified Status: Acute Assessment and Plan: Continue levothyroxine (9) UTI (urinary tract infection): Code(s): N39.0 - Urinary tract infection, site not specified Status: Acute Assessment and Plan: IV levofloxacin Quality VTE Prophylaxis VTE prophylaxis: mechanical ordered If No VTE Prophylaxis Answer both mechanical and pharmacologic: Reason no pharmacologic proph: medical contraindication Hospitalist MIPS Advance Care Plan I have confirmed that the patient's Advanced Care Plan is present, code status is documented, or surrogate decision maker is listed in patient medical record.: Yes Medication Reconciliation I have utilized all available resources to obtain, update and review the patients current medications (includes all prescriptions, OTC, herbals, c annabis, and nutritional supplements).: Yes
--- NOTE | 2025-04-25 12:42 | PC.NURSE ---
1030 this RN, Sarah YEE and Eleanor BURROUGHS Tech went into pts room to clean pt up. Pt refused to be cleaned up, stated she wanted to have another bowel movement first. Pt was given her call light and instructed to call out when pt was done. 1230 Pt had not called out to be cleaned up yet, this RN and Eleanor BURROUGHS tech entered pts room to clean her up and placed ray catheter. Pt was placed in clean, dry depends and ray catheter was placed by Eleanor BURROUGHS tech.
--- NOTE | 2025-04-25 12:46 | WPCEDHO ---
ED Hand Off Checklist All vitals saved:y IV Site documented:y All med administrations documented:y Triage Note Triage Note Pt to the ED via EMS from home 04/25/25 09:28 for evaluation of R hip pain after a fall. Pt denies hitting head, loss of consciousness or blood thinner use. Pt fell onto her concrete patio pad. Allergies cephalexin Allergy (Severe, Verified 03/11/25 13:40) ITCHING, YEAST INFECTION naproxen Allergy (Intermediate, Verified 03/11/25 13:40) Abdominal Pain Family History (Last Reviewed 04/25/25 @ 09:56 by Nicole Billings PA-C) Mother Hypertension Cerebrovascular accident Family history of malignant neoplasm of ovary Family history of malignant neoplasm Father Family history of coronary artery disease Sibling Family history of malignant neoplasm of testis Other Diabetes mellitus Active Medications including assessments/comments Morphine Sulfate (Morphine Sulfate (*Crx) 4 Mg/Ml Inj) 2 mg IV PUSH Q2H PRN PRN Reason: Pain Rated 7-10 Last Admin: 04/25/25 12:23 Dose: 2 mg Documented By: JULIO MAR Pain Assessment Document 04/25/25 12:23 JULIO (Rec: 04/25/25 12:23 JULIO [id number]) Pain Evaluation Pain Evaluation Assessment Pain Scale Pain Scale Used Numeric (1 - 10) Self Report Pain Assessment Reported Pain Level 8 Pain Score Pain Score 8: Self Report Ondansetron HCl (Ondansetron Inj 4 Mg/2 Ml Vial) 4 mg IV PUSH Q4H PRN PRN Reason: Nausea Last Admin: 04/25/25 12:23 Dose: 4 mg Documented By: JULIO Administered/Completed Medications Discontinued Medications Morphine Sulfate (Morphine Sulfate (*Crx) 4 Mg/Ml Inj) 4 mg IV PUSH ONCE STA Stop: 04/25/25 09:34 Last Admin: 04/25/25 09:39 Dose: 4 mg Documented By: JULIO Ondansetron HCl (Ondansetron Inj 4 Mg/2 Ml Vial) 4 mg IV PUSH ONCE STA Stop: 04/25/25 09:34 Last Admin: 04/25/25 09:39 Dose: 4 mg Documented By: JULIO Notes 04/25/25 12:42 Nurse Note by Katie Mcmanus 1030 leydi RN, Sarah YEE and Eleanor demo specialist went into pts room to clean pt up. Pt refused to be cleaned up, stated she wanted to have another bowel movement first. Pt was given her call light and instructed to call out when pt was done. 1230 Pt had not called out to be cleaned up yet, this RN and Eleanor certified medication technician entered pts room to clean her up and placed ray catheter. Pt was placed in clean, dry depends and ray catheter was placed by Eleanor BURROUGHS tech. Initialized on 04/25/25 12:42 - END OF NOTE Interventions/Assessments IV / Saline Lock, Insert Start: 04/25/25 09:17 Freq: Status: Active Protocol: Document 04/25/25 09:31 JULIO (Rec: 04/25/25 09:31 ELTa [id number]) IV Assessment Peripheral Access Left Forearm IV Catheter Access Initiated Before Arrival Catheter Gauge 20 IV Site Assessment WNL IV Care and WNL Maintenance Last Vital Signs Temperature 97.6 F 04/25/25 09:28 Pulse Rate 88 04/25/25 11:46 Respiratory Rate 12 04/25/25 11:46 Pulse Oximetry 96 04/25/25 11:46 Blood Pressure 133/60 04/25/25 11:46 Blood Pressure Mean 82 04/25/25 11:46 Oxygen Delivery Room Air 04/25/25 09:28 Last Result - Abnormals Only RBC 4.09 M/mm3 (4.2-5.4) L 04/25/25 09:48 Immature Gran % (Auto) 1.0 % (0-0.5) H 04/25/25 09:48 Lymph % (Auto) 17.4 % (18.3-44.2) L 04/25/25 09:48 [place] # (Auto) 0.8 K/mm3 (0.1-0.6) H 04/25/25 09:48 Abs Immat Gran (auto) 0.10 K/mm3 (0.00-0.031) H 04/25/25 09:48 Absolute Neuts (auto) 7.0 K/mm3 (1.3-6.7) H 04/25/25 09:48 Sodium 136 mmol/L (137-145) L 04/25/25 09:48 BUN 19 mg/dL (7-17) H 04/25/25 09:48 Creatinine 0.50 mg/dL (0.7-1.0) L 04/25/25 09:48 Glucose 125 mg/dL (65-110) H 04/25/25 09:48 AST 39 U/L (14-36) H 04/25/25 09:48 Total Protein 8.4 g/dL (6.3-8.2) H 04/25/25 09:48 Most Recent Suicide Severity Rating Suicide Severity Rating NO RISK INDICATED 04/25/25 09:28
--- NOTE | 2025-04-25 12:57 | ADMGEN ---
This patient, Danyell Babb, was admitted to Medical Room 253-01. Patient/family oriented to hospital policies and general routines including ID bracelet, bed and alarms, visiting hours, pain management, procedures, bathroom and other care routines, personal items, smoking policy, room service/diet, and visiting hours. Information on how to activate the Rapid Response Team has been discussed. Patient/Family are encouraged to report perceived risks to care and to ask questions if they do not understand what they are told or what they should do.
[2025-04-25] MEDS: ACETAMINOPHEN 325 MG TABLET 650 MG PO ×2 (13:30→18:11)
[2025-04-25 14:17] LABS: Add Urine Microscopic? YES; Appearance Urine Cloudy (Clear); Glucose Urine UA Negative (Negative); Leukocyte Esterase Ur Trace LEU/UL (Negative); Nitrate Urine Positive (Negative); Non Pathogenic Casts 0-2; Specific Grav Ur 1.014 (1.001-1.035)
--- NOTE | 2025-04-25 15:01 | PM.CNOR ---
Assessment and Plan Assessment and plan (1) Displaced fracture of right femoral neck: Code(s): S72.001A - Fracture of unspecified part of neck of right femur, initial encounter for closed fracture Status: Acute (2) Right shoulder pain: Code(s): M25.511 - Pain in right shoulder Status: Acute Plan The patient is a 79-year-old female presents with a right hip displaced femoral neck fracture after a fall at home outside on her deck. She tripped over a chair by getting her foot caught up in the Foot of the chair. She landed onto her right hip. She reports no pain or else except for increase in pain into her right shoulder where she has had previous pain and chronic pain for quite some time. She lives independently at home with her cat and she has 2 daughters who are here with her today during this interview. She lives in [facility]. She is quite active and she ambulates primarily without any assistive device and on the rare occasion she may use a cane. During the interview it is noted the patient is quite cognitively capable and answers questions appropriately. During the interview today I explained to the patient the type of hip fracture that she has which is a femoral neck fracture and explained to her the reason for my recommendation for a hemiarthroplasty which is a partial hip replacement. I explained to the patient that where she fractured her hip she has loss of blood supply to the femoral head and therefore repairing the fracture will not result in a viable femoral head. I explained to her the procedure which is a partial hip replacement and the risks associated with this type of procedure. The risks include but are not limited to infection nerve or blood vessel injury DVT dislocation limb length discrepancy. The patient understands the risks but she also understands that there really is no other option because without surgery she will not heal and she will not be able to walk. Her daughters were here with her today also understand the plan for surgery and all questions were answered. I saray on the board for the patient and her daughters the procedure with a diagram. The surgery is planned for tomorrow morning at 8:00 a.m.. We will also plan on injecting her right shoulder given the fact that she has chronic pain into the right shoulder and she has a palpable effusion into the right shoulder. We will also obtain x-rays today of the right shoulder. This will help her to ambulate with a walker. History of Present Illness HPI Consult date: 04/25/25 Chief complaint: r femeral neck fx,glf Narrative: The patient is a 79-year-old female presents with a right hip displaced femoral neck fracture after a fall at home outside on her deck. She tripped over a chair by getting her foot caught up in the Foot of the chair. She landed onto her right hip. She reports no pain or else except for increase in pain into her right shoulder where she has had previous pain and chronic pain for quite some time. She lives independently at home with her cat and she has 2 daughters who are here with her today during this interview. She lives in [facility]. She is quite active and she ambulates primarily without any assistive device and on the rare occasion she may use a cane. During the interview it is noted the patient is quite cognitively capable and answers questions appropriately. [facility] Past Medical History Medical History (Updated 04/25/25 @ 15:06 by Oscar Paulino MD) Hypothyroidism (acquired) Mixed hyperlipidemia Paroxysmal atrial fibrillation Fall Generalized weakness Generalized osteoarthritis of multiple sites Depressed Bilateral shoulder pain Rash of groin Sore throat Adult BMI 19-24 kg/sq m RUQ pain Toenail fungus Family History Family History Mother Hypertension Cerebrovascular accident Family history of malignant neoplasm of ovary Family history of malignant neoplasm Father Family history of coronary artery disease Sibling Family history of malignant neoplasm of testis Other Diabetes mellitus Social History Social History Smoking status: Former smoker Second hand tobacco smoke exposure: No Alcohol intake: never Substance use: never Substance use type: does not use Do You Feel Safe in your Home?: Yes Lack of Transportation: No Lack of Food: Never True Current Housing: I Have Housing Concerned About Future Housing: No Difficulty Paying Gas/Electric Bills: No Difficulty Paying for Meds: No Currently Unemployed: No Education: Bachelor's Degree Difficulty w/ Childcare or Family Care: No Living arrangements: alone 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 Gender identity (if verbalized by the patient): Female Spiritual care concerns: No Meds Home Medications and Allergies Home Medications ?Medication ?Instructions ?Recorded ?Confirmed ?Type metoprolol tartrate 100 mg tablet 100 mg PO Q12H 08/07/19 04/25/25 History amlodipine 10 mg tablet 10 mg PO DAILY 02/08/22 04/25/25 History cyanocobalamin (vitamin B-12) 1,000 mcg PO DAILY 02/20/23 04/25/25 History 1,000 mcg capsule acetaminophen 500 mg tablet 500 mg PO Q6H PRN pain (scale 05/16/23 04/25/25 History (Tylenol Extra Strength) score 1-3) valsartan 320 mg tablet See Rx Instructions .Route 09/09/24 04/25/25 Rx .COMPLEX #90 tabs cholecalciferol (vitamin D3) 50 50 mcg PO DAILY #90 caps 09/10/24 04/25/25 Rx mcg (2,000 unit) capsule duloxetine 60 mg capsule,delayed 60 mg PO DAILY #90 caps 11/12/24 04/25/25 Rx release celecoxib 200 mg capsule See Rx Instructions .Route 11/18/24 04/25/25 Rx .COMPLEX #90 caps levothyroxine 50 mcg tablet See Rx Instructions .Route 11/25/24 04/25/25 Rx .COMPLEX #90 tabs rosuvastatin 10 mg tablet See Rx Instructions .Route 12/19/24 04/25/25 Rx .COMPLEX #90 tabs Allergies Allergy/AdvReac Type Severity Reaction Status Date / Time cephalexin Allergy Severe ITCHING, Verified 04/25/25 13:17 YEAST INFECTION naproxen Allergy Intermediate Abdominal Verified 04/25/25 13:17 Pain Vital Signs Vital Signs - 24 hr 04/25/25 09:28 04/25/25 09:36 04/25/25 09:37 Temperature 36.4 C Pulse Rate 69 79 76 Respiratory Rate 16 17 17 Blood Pressure 147/82 H 147/82 H Pulse Oximetry 100 100 100 Oxygen Delivery Room Air 04/25/25 10:15 04/25/25 10:46 04/25/25 11:31 Temperature Pulse Rate 81 90 85 Respiratory Rate 16 14 14 Blood Pressure 146/75 H 133/63 Pulse Oximetry 96 95 90 Oxygen Delivery 04/25/25 11:46 04/25/25 13:21 Temperature 36.6 C Pulse Rate 88 95 Respiratory Rate 12 18 Blood Pressure 133/60 126/53 L Pulse Oximetry 96 95 Oxygen Delivery Exam Narrative: On exam of the patient her right lower extremity is shortened and externally rotated she has no swelling tenderness or deformity of both knees and both ankles. Bilateral upper extremity examination reveals significant swelling into the right shoulder but no swelling tenderness or deformity into the elbows or into the hands and no evidence of head trauma. She is alert and oriented to person place and time and answers questions appropriately. She has a good dorsalis pedis pulse and good sensation on right lower extremity. Const: General: cooperative, healthy appearing, comfortable, no acute distress, well developed, alert and awake Nutritional Appearance: average body habitus Orientation/consciousness: oriented to person, oriented to place and oriented to time Results Labs 04/25/25 09:48 04/25/25 09:48 Labs: Abnormal lab results 04/25/25 04/25/25 Range/Units 09:48 14:00 RBC 4.09 L (4.2-5.4) M/mm3 Immature Gran % (Auto) 1.0 H (0-0.5) % Lymph % (Auto) 17.4 L (18.3-44.2) % [place] # (Auto) 0.8 H (0.1-0.6) K/mm3 Abs Immat Gran (auto) 0.10 H (0.00-0.031) K/mm3 Absolute Neuts (auto) 7.0 H (1.3-6.7) K/mm3 Sodium 136 L (137-145) mmol/L BUN 19 H (7-17) mg/dL Creatinine 0.50 L (0.7-1.0) mg/dL Glucose 125 H (65-110) mg/dL AST 39 H (14-36) U/L Total Protein 8.4 H (6.3-8.2) g/dL Urine Appearance Cloudy H (Clear) Ur Blood (Man) 1+ H (Negative) Urine Nitrate Positive H (Negative) Leukocyte Esterase Rfl Trace H (Negative) TANG/UL Urine RBC 6-10 H (0-2) /hpf H & H 04/25/25 Range/Units 09:48 Hgb 12.2 (12.0-15.0) g/dL Hct 37.8 (37.0-47.0) % Coagulation 04/25/25 Range/Units 09:48 INR 1.0 All other labs normal.
--- NOTE | 2025-04-25 15:13 | P.CONGI_ITS ---
Assessment and Plan Assessment and plan (1) Abnormal CT scan, pelvis: Code(s): R93.5 - Abnormal findings on diagnostic imaging of other abdominal regions, including retroperitoneum Status: Acute Assessment and Plan: The CT impression of stercoral colitis is considered unlikely. This entity typically occurs in patients with chronic, severe fecal impaction, which is inconsistent with the patient's reported clinical history of daily, normal bowel movements. Therefore, aggressive laxative and/or enema administration is unwarranted. Such intervention carries the risk of a messy situation requiring patient mobilization, which is contraindicated given her fractured pelvis and hip. We will proceed with the current management plan as directed by Orthopedic Surgery. GI Consult Note Consult date/time: 04/25/25 15:13 Reason for consult: Stool retained in rectal vault HPI: Danyell Babb is a 79 year old female admitted after fall, when she fracture her right hip and the pubic bone. The patient is scheduled to have surgery tomorrow. The reason for consultation is the finding of retained stools in the rectal vault and the possibility of stercoral colitis. The patient is able to provide reliable information, and states that she has no problems with constipation, having daily bowel movement with no significant straining. There is no rectal bleeding, tenesmus or any lower GI symptoms. Review of Systems 2 Review of Systems: All systems reviewed & are unremarkable except as noted in HPI and below PMFSH Past Medical History Medical History (Updated 04/25/25 @ 15:16 by You Vazquez MD) Hypothyroidism (acquired) Mixed hyperlipidemia Paroxysmal atrial fibrillation Fall Generalized weakness Generalized osteoarthritis of multiple sites Depressed Bilateral shoulder pain Rash of groin Sore throat Adult BMI 19-24 kg/sq m RUQ pain Toenail fungus Family History Family History Mother Hypertension Cerebrovascular accident Family history of malignant neoplasm of ovary Family history of malignant neoplasm Father Family history of coronary artery disease Sibling Family history of malignant neoplasm of testis Other Diabetes mellitus Social History Social History Smoking status: Former smoker Second hand tobacco smoke exposure: No Alcohol intake: never Substance use: never Substance use type: does not use Do You Feel Safe in your Home?: Yes Lack of Transportation: No Lack of Food: Never True Current Housing: I Have Housing Concerned About Future Housing: No Difficulty Paying Gas/Electric Bills: No Difficulty Paying for Meds: No Currently Unemployed: No Education: Bachelor's Degree Difficulty w/ Childcare or Family Care: No Living arrangements: alone 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 Gender identity (if verbalized by the patient): Female Spiritual care concerns: No Meds Home Medications and Allergies Home Medications ?Medication ?Instructions ?Recorded ?Confirmed ?Type metoprolol tartrate 100 mg tablet 100 mg PO Q12H 08/0704/25/25 History amlodipine 10 mg tablet 10 mg PO DAILY 02/08/2204/12 History cyanocobalamin (vitamin B-12) 1,000 mcg PO DAILY 02/2004/25/25 History 1,000 mcg capsule acetaminophen 500 mg tablet 500 mg PO Q6H PRN pain (sc angel 05/16/23 04/25/25 History (Tylenol Extra Strength) score 1-3) valsartan 320 mg tablet See Rx Instructions .Route 0 09/09/24 04/25/25 Rx .COMPLEX #90 tabs cholecalciferol (vitamin D3) 50 50 mcg PO DAILY #90 ca ps 09/10/24 04/25/25 Rx mcg (2,000 unit) capsule duloxetine 60 mg capsule,delayed 60 mg PO DAILY #90 ca ps 11/12/24 04/25/25 Rx release celecoxib 200 mg capsule See Rx Instructions .Route 0 11/18/24 04/25/25 Rx .COMPLEX #90 caps levothyroxine 50 mcg tablet See Rx Instructions .Route 11/25/24 04/25/25 Rx .COMPLEX #90 tabs rosuvastatin 10 mg tablet See Rx Instructions .Route 0 12/19/24 04/25/25 Rx .COMPLEX #90 tabs Allergies Allergy/AdvReac Type Severity Reaction Status Date / Time cephalexin Allergy Severe ITCHING, Verified 04/25/25 13:17 YEAST INFECTION naproxen Allergy Intermediate Abdominal Verified 04/25/25 13:17 Pain Vital Signs Vital Signs - 24 hr 04/25/25 09:28 04/25/25 09:36 04/25/25 09:37 Temperature 97.6 F Pulse Rate 69 79 76 Respiratory Rate 16 17 17 Blood Pressure 147/82 H 147/82 H Pulse Oximetry 100 100 100 Oxygen Delivery Room Air 04/25/25 10:15 04/25/25 10:46 04/25/25 11:31 Temperature Pulse Rate 81 90 85 Respiratory Rate 16 14 14 Blood Pressure 146/75 H 133/63 Pulse Oximetry 96 95 90 Oxygen Delivery 04/25/25 11:46 04/25/25 13:21 Temperature 97.9 F Pulse Rate 88 95 Respiratory Rate 12 18 Blood Pressure 133/60 126/53 L Pulse Oximetry 96 95 Oxygen Delivery Exam 2 Narrative: On exam of the patient her right lower extremity is shortened and externally rotated she has no swelling tenderness or deformity of both knees and both ankles. Bilateral upper extremity examination reveals significant swelling into the right shoulder but no swelling tenderness or deformity into the elbows or into the hands and no evidence of head trauma. She is alert and oriented to person place and time and answers questions appropriately. She has a good dorsalis pedis pulse and good sensation on right lower extremity. Rectal examination not performed due to the patient's right hip fracture. Const: General: cooperative, healthy appearing, comfortable, no acute distress, well developed, alert and awake Nutritional Appearance: average body habitus Orientation/consciousness: oriented to person, oriented to place and oriented to time Results Labs 04/25/25 09:48 04/25/25 09:48 Labs: Short CBC 04/25/25 Range/Units 09:48 WBC 9.8 (4.5-10.0) K/mm3 Hgb 12.2 (12.0-15.0) g/dL Hct 37.8 (37.0-47.0) % Plt Count 167 D (150-375) k/mm3 BMP 04/25/25 09:48 Sodium 136 L Potassium 4.0 Chloride 103 Carbon Dioxide 23 BUN 19 H Creatinine 0.50 L Glucose 125 H Calcium 8.9 Cardiac Enzymes 04/25/25 Range/Units 09:48 Troponin I < 0.012 (0.000-0.034) ng/mL Liver Function 04/25/25 Range/Units 09:48 Total Bilirubin 0.6 (0.2-1.3) mg/dL AST 39 H (14-36) U/L ALT 15 (6-35) U/L Alkaline Phosphatase 93 (38-126) U/L Albumin 4.1 (3.5-5.1) g/dL Urine 04/25/25 Range/Units 14:00 Urine Color Yellow (Yellow) Urine Appearance Cloudy H (Clear) Urine pH 7.5 (5.0-9.0) Ur Specific [place] 1.014 (1.001-1.035) Urine Protein Trace (Negative) mg/dL Urine Glucose (UA) Negative (Negative) mg/dL
[2025-04-25] MEDS: oxyCODONE HCL (*CRX) 5 MG TAB IR PO ×2 (16:39→21:00)
[2025-04-25] MEDS: SENNOSIDES 8.6 MG TABLET PO (21:01)
[2025-04-25] MEDS: METOPROLOL TARTRATE 50 MG TAB 100 MG PO (21:01)
[2025-04-25] MEDS: levoFLOXacin 750 MG/D5W 150 ML 750 MG/150 ML BAG 100 MG IVPB (21:02)
[2025-04-26] VITALS (18 sets, daily range): BP systolic 108–143; BP diastolic 46–57; PULSE 68–80; RESP 12–20; TEMP 36.1–36.9; O2SAT 96–100
[2025-04-26] MEDS: ACETAMINOPHEN 325 MG TABLET 650 MG PO (00:31)
[2025-04-26 05:11] LABS: Hematocrit 33.8 % (37.0-47.0); Hemoglobin 10.6 g/dL (12.0-15.0); Immature Granulocyte Percent A 0.3 % (0-0.5); Lymphocytes Absolute Auto 1.23 K/mm3 (0.9-3.2); Mean Corpuscular HGB Conc 31.4 g/dl (32-36); Mean Corpuscular Hemoglobin 30.0 pg (26-34); Mean Corpuscular Volume 95.8 fl (80-100); Nucleated Red Blood Cells Absolute Auto 0.000 K/mm3 (0.0-0.012); Nucleated Red Blood Cells Perc 0.0 % (0.0-0.2); Platelet Count Result 143 k/mm3 (150-375); Red Blood Count 3.53 M/mm3 (4.2-5.4); White Blood Count 8.9 K/mm3 (4.5-10.0)
[2025-04-26 05:33] LABS: Anion Gap 3 mmol/L (4-12); Blood Urea Nitrogen 14 mg/dL (7-17); Calcium 8.7 mg/dL (8.4-10.2); Carbon Dioxide 29 mmol/L (22-30); Chloride 102 mmol/L (98-107); Estimated CRCL calculation 50 ml/min; Estimated Glomerular Filt Rate > 60; Glucose 128 mg/dL (65-110); Potassium 4.3 mmol/L (3.4-5.0); Sodium 134 mmol/L (137-145)
--- NOTE | 2025-04-26 07:37 | P.PNIM_ITS ---
Progress Note: A&P Assessment and Plan (1) Fall from ground level: Code(s): W18.30XA - Fall on same level, unspecified, initial encounter Status: Acute Assessment and Plan: UA pending PT OT after surgery fall precautions 04/26: UA positive for nitrites, trace leuks, UC pending -Mechanical fall, no head, c-spine, or any other trauma -PT/OT once cleared post op by ortho (2) Femoral neck fracture: Qualifiers: Encounter type: initial encounter Fracture type: closed Laterality: right Qualified Code(s): S72.001A - Fracture of unspecified part of neck of right femur, initial encounter for closed fracture Code(s): S72.009A - Fracture of unspecified part of neck of unspecified femur, initial encounter for closed fracture Status: Acute Assessment and Plan: orthopedics consulted NPO midnight okay for diet now possible surgery in the morning pain management bowel protocol 04/26: Plan for surgical repair today at 0800 via ortho:R hemiarthroplasty -PT/OT once cleared post op by ortho -Pain control (3) Essential (primary) hypertension: Code(s): I10 - Essential (primary) hypertension Status: Acute Assessment and Plan: Continue amlodipine (4) Paroxysmal atrial fibrillation: Code(s): I48.0 - Paroxysmal atrial fibrillation Status: Acute Assessment and Plan: Continue metoprolol (5) Mixed hyperlipidemia: Code(s): E78.2 - Mixed hyperlipidemia Status: Acute Assessment and Plan: Continue Crestor (6) Hypothyroidism (acquired): Code(s): E03.9 - Hypothyroidism, unspecified Status: Acute Assessment and Plan: Continue levothyroxine (7) UTI (urinary tract infection): Code(s): N39.0 - Urinary tract infection, site not specified Status: Acute Assessment and Plan: IV levofloxacin 04/26: UA positive for nitrites, trace leuks, UC pending -Continue levofloxacin (8) Shoulder pain: Qualifiers: Chronicity: acute Laterality: right Qualified Code(s): M25.511 - Pain in right shoulder Code(s): M25.519 - Pain in unspecified shoulder Status: Acute Assessment and Plan: Acute on chronic R shoulder pain flared by this fall -XR yielding: No acute fracture or malalignment. Severe degenerative changes, underlying rotator cuff injury suspected. Soft tissues unremarkable. -Ortho with plans for shoulder injection while under during surgery today Plan R hemiarthroplasty today, pain control Time Spent With Patient Time: 30 Subjective Date/time seen: 04/26/25 0745 Pt down in the OR for surgery, spoke to daughter at the bedside, Kimberly and updated her again on the plan. She reports that the pt has also suffered from R shoulder pain for a number of years but never has had any intervention. All questions addressed. 1147 Pt just arrived back to her room from the OR. Pt still drowsy but oriented and not c/o pain. Some slight nausea. VSS. Review of Systems Review of Systems: 12 systems were reviewed and are negative except for as per HPI. Exam Const: General: comfortable and no acute distress HENMT: Face/Nose/Sinus: Normal nares present Other: tacky mucous membranes Eyes: General: appearance normal, both eyes and all related structures Sclera: sclerae normal Neck: Neck: supple Resp: Effort & Inspection: normal respiratory effort Auscultation: clear to auscultation bilaterally Cardio: Rate: regular rate Rhythm: regular rhythm GI: Auscultation: abnormal bowel sounds (hypo throughout) Skin: General skin exam: normal color and no rashes or lesions noted Neuro: Speech: normal speech Motor exam (neuro): Normal motor muscle tone present throughout Extrem: Other: R hip surgical dressing CDI, hemovac in place Psych: Mental Status: mental status grossly normal Affect: normal affect Objective Data Vital Signs Vital Signs: Vital Signs - 24 hr 04/25/25 09:28 04/25/25 09:36 04/25/25 09:37 Temperature 97.6 F Pulse Rate 69 79 76 Respiratory Rate 16 17 17 Blood Pressure 147/82 H 147/82 H Pulse Oximetry 100 100 100 Oxygen Delivery Room Air 04/25/25 10:15 04/25/25 10:46 04/25/25 11:31 Temperature Pulse Rate 81 90 85 Respiratory Rate 16 14 14 Blood Pressure 146/75 H 133/63 Pulse Oximetry 96 95 90 Oxygen Delivery 04/25/25 11:46 04/25/25 13:21 04/25/25 20:00 Temperature 97.9 F Pulse Rate 88 95 Respiratory Rate 12 18 Blood Pressure 133/60 126/53 L Pulse Oximetry 96 95 Oxygen Delivery Room Air 04/25/25 21:01 04/25/25 22:00 04/26/25 06:00 Temperature 98.1 F 98.1 F Pulse Rate 91 91 70 Respiratory Rate 18 16 Blood Pressure 126/32 L 125/54 L Pulse Oximetry 96 97 Oxygen Delivery Intake/Output Intake/Output: Intake & Output 04/23/25 04/24/25 04/25/25 04/26/25 23:59 23:59 23:59 23:59 Intake Total 390 150 Output Total 400 800 Balance -10 -650 Meds/Results Medications: Active Medications Generic Name Dose Route Start Last Admin Trade Name Freq PRN Reason Stop Dose Admin Acetaminophen 650 mg 04/25/25 12:55 04/26/25 06:22 Acetaminophen 325 Mg Tablet PO Not Given Q6HR [facility] Amlodipine Besylate 10 mg 04/26/25 09:00 Amlodipine Besylate 10 Mg Tablet PO DAILY [facility] Celecoxib 200 mg 04/26/25 09:00 Celecoxib 200 Mg Capsule BY MOUTH DAILY [facility] Duloxetine HCl 60 mg 04/26/25 09:00 Duloxetine Hcl 60 Mg Capsule.Dr PO DAILY [facility] Levofloxacin/Dextrose 750 mg in 150 mls @ 100 mls/hr 04/25/25 20:00 04/25/25 22:32 Levaquin 750 Mg/D5w 150 Ml IVPB Infused Q24H [facility] Infusion Levothyroxine Sodium 50 mcg 04/26/25 06:30 Levothyroxine Sodium 50 Mcg Tablet BY MOUTH DAILY@0630 [facility] Methocarbamol 500 mg 04/25/25 13:00 04/25/25 21:00 Methocarbamol 500 Mg Tablet PO 500 mg QID [facility] Administration Metoprolol Tartrate 100 mg 04/25/25 21:00 04/25/25 21:01 Metoprolol Tartrate 50 Mg Tab PO 100 mg Q12HR GABBIE Administration Morphine Sulfate 2 mg 04/25/25 11:56 04/25/25 12:23 Morphine Sulfate (*Crx) 4 Mg/Ml Inj IV PUSH 2 mg Q2H PRN Administration Pain Rated 7-10 Naloxone HCl 0.1 mg 04/25/25 12:50 Naloxone Hcl 0.4 Mg/Ml Vial IV PUSH Q2M PRN Opiate Reversal Oxycodone HCl 5 mg 04/25/25 12:53 04/25/25 21:00 Oxycodone Hcl (*Crx) 5 Mg Tab Ir PO 5 mg Q4H PRN Administration Pain Rated 4-6 Rosuvastatin Calcium 10 mg 04/26/25 09:00 Rosuvastatin 10 Mg Tablet BY MOUTH DAILY GABBIE Senna 8.6 mg 04/25/25 21:00 04/25/25 21:01 Sennosides 8.6 Mg Tablet PO 8.6 mg HS GABBIE Administration Trimethobenzamide HCl 200 mg 04/25/25 19:12 Trimethobenzamide Hcl 200 Mg/2 Ml Vial IM Q6H PRN Nausea And Vomiting Radiology Results: ITS Impressions Head CT 04/25/25 10:06 IMPRESSION: 1. No gross acute intracranial abnormality. Cervical Spine CT 04/25/25 10:07 IMPRESSION: No fracture lucency C1-C7. Chest X-Ray 04/25/25 10:43 Impression: No acute cardiopulmonary abnormality. Hip/Pelvis X-Ray 04/25/25 10:43 IMPRESSION: Right femoral neck fracture. Questionable findings in the right pubic bone. CT is recommended for further evaluation. Pelvis CT 04/25/25 12:20 IMPRESSION: 1. Transcervical fracture of the proximal right femur with typical pattern of displacement and external rotation. 2. Nondisplaced fracture of the right pubic body. 3. Large ball of stool at rectum with rectal stranding suggesting secondary stercoral colitis. Shoulder X-Ray 04/25/25 15:31 Impression: No acute fracture or malalignment. Labs Labs: Laboratory Results - last 24 hr 04/25/25 04/25/25 04/26/25 09:48 14:00 04:50 WBC 9.8 8.9 RBC 4.09 L 3.53 L Hgb 12.2 10.6 L Hct 37.8 33.8 L MCV 92.4 95.8 MCH 29.8 30.0 MCHC 32.3 31.4 L RDW 13.2 13.4 Plt Count 167 D 143 L MPV 10.1 10.1 Immature Gran % (Auto) 1.0 H 0.3 Neut % (Auto) 71.4 70.5 Lymph % (Auto) 17.4 L 13.8 L [place] % (Auto) 7.6 8.4 Eos % (Auto) 2.1 6.7 H Baso % (Auto) 0.5 0.3 Lymph # (Auto) 1.71 1.23 [place] # (Auto) 0.8 H 0.8 H Eos # (Auto) 0.2 0.6 H Baso # (Auto) 0.1 0.0 Abs Immat Gran (auto) 0.10 H 0.03 Absolute Neuts (auto) 7.0 H 6.3 Absolute Nucleated RBC 0.000 0.000 Nucleated RBC % 0.0 0.0 PT 13.6 INR 1.0 APTT 25.7 Sodium 136 L 134 L Potassium 4.0 4.3 Chloride 103 102 Carbon Dioxide 23 29 Anion Gap 10 3 L BUN 19 H 14 D Creatinine 0.50 L 0.63 L Estim Creat Clear Calc Not Reportable 50 Estimated GFR > 60 > 60 Glucose 125 H 128 H Calcium 8.9 8.7 Total Bilirubin 0.6 AST 39 H ALT 15 Alkaline Phosphatase 93 Troponin I < 0.012 Total Protein 8.4 H Albumin 4.1 Urine Color Yellow Urine Appearance Cloudy H Urine pH 7.5 Ur Specific [place] 1.014 Urine Protein Trace Urine Glucose (UA) Negative Urine Ketones Negative Ur Blood (Man) 1+ H Urine Nitrate Positive H Urine Bilirubin Negative Urine Urobilinogen 1.0 Leukocyte Esterase Rfl Trace H Urine RBC 6-10 H Urine WBC 0-5 Ur Squamous Epith Cells None seen Urine Bacteria 4+ Urine Casts 0-2 Quality VTE Prophylaxis VTE prophylaxis: mechanical ordered
--- NOTE | 2025-04-26 07:53 | WPDHPUPDATE1 ---
History and Physical Update Update Date/Time: 04/26/25 07:53 History and Physical has been reviewed, including an updated exam of the patient. There are NO changes in the patient's condition. Risks, benefits, and alternatives have been discussed and questions answered. Patient agrees to proceed with procedure. Right Hip Partial Replacement for Right Hip Fracture. Risks include but are not limited to: infection, Nerve injury, bleeding, DVT, Dislocation, Limb Length Discrepancy. The patient and her daughters understand and agree to proceed with the surgical plan. All questions were answered.
[2025-04-26] MEDS: ACETAMINOPHEN 500 MG TABLET 1000 MG PO (08:00)
--- NOTE | 2025-04-26 08:00 | P.PNAN_ITS ---
Anes - Initial Pre Proc Eval Procedure: Operation Date: 04/26/25 08:00 Proposed Procedures p Right Bipolar - Oscar Paulino MD Date/Time: 04/26/25 08:00 Surgeon: Virgil Apple DO Pre Op Diagnosis: r femeral neck fx,glf Patient Data Age: 79 Gender: F Height: 1.65 m Weight: 53 kg Last Vital Signs Temp 36.7 C 04/26/25 06:00 Pulse 70 04/26/25 06:00 Resp 16 04/26/25 06:00 BP 125/54 L 04/26/25 06:00 Pulse Ox 97 04/26/25 06:00 O2 Del Method Room Air 04/25/25 20:00 Allergies Allergy/AdvReac Type Severity Reaction Status Date / Time cephalexin Allergy Severe ITCHING, Verified 04/25/25 13:17 YEAST INFECTION naproxen Allergy Intermediate Abdominal Verified 04/25/25 13:17 Pain Home Medications ?Medication ?Instructions ?Recorded ?Confirmed ?Type metoprolol tartrate 100 mg tablet 100 mg PO Q12H 08/0704/25/25 History amlodipine 10 mg tablet 10 mg PO DAILY 02/08/2204/12 History cyanocobalamin (vitamin B-12) 1,000 mcg PO DAILY 02/2004/25/25 History 1,000 mcg capsule acetaminophen 500 mg tablet 500 mg PO Q6H PRN pain (sc angel 05/16/23 04/25/25 History (Tylenol Extra Strength) score 1-3) valsartan 320 mg tablet See Rx Instructions .Route 0 09/09/24 04/25/25 Rx .COMPLEX #90 tabs cholecalciferol (vitamin D3) 50 50 mcg PO DAILY #90 ca ps 09/10/24 04/25/25 Rx mcg (2,000 unit) capsule duloxetine 60 mg capsule,delayed 60 mg PO DAILY #90 ca ps 11/12/24 04/25/25 Rx release celecoxib 200 mg capsule See Rx Instructions .Route 0 11/18/24 04/25/25 Rx .COMPLEX #90 caps levothyroxine 50 mcg tablet See Rx Instructions .Route 11/25/24 04/25/25 Rx .COMPLEX #90 tabs rosuvastatin 10 mg tablet See Rx Instructions .Route 0 12/19/24 04/25/25 Rx .COMPLEX #90 tabs Laboratory Tests 04/25/25 04/25/25 04/26/25 09:48 14:00 04:50 WBC 9.8 K/mm3 8.9 K/mm3 (4.5-10.0) (4.5-10.0) RBC 4.09 L M/mm3 3.53 L M/mm3 (4.2-5.4) (4.2-5.4) Hgb 12.2 g/dL 10.6 L g/dL (12.0-15.0) (12.0-15.0) Hct 37.8 % 33.8 L % (37.0-47.0) (37.0-47.0) MCV 92.4 fl 95.8 fl (80-100) (80-100) MCH 29.8 pg 30.0 pg (26-34) (26-34) MCHC 32.3 g/dl 31.4 L g/dl (32-36) (32-36) RDW 13.2 % 13.4 % (11.5-14.5) (11.5-14.5) Plt Count 167 D k/mm3 143 L k/mm3 (150-375) (150-375) MPV 10.1 fl 10.1 fl (7.4-10.4) (7.4-10.4) Immature Gran % (Auto) 1.0 H % 0.3 % (0-0.5) (0-0.5) Neut % (Auto) 71.4 % 70.5 % (45.5-73.1) (45.5-73.1) Lymph % (Auto) 17.4 L % 13.8 L % (18.3-44.2) (18.3-44.2) Alexander % (Auto) 7.6 % 8.4 % (2.6-8.5) (2.6-8.5) Eos % (Auto) 2.1 % 6.7 H % (0-4.4) (0-4.4) Baso % (Auto) 0.5 % 0.3 % (0.2-1.2) (0.2-1.2) Lymph # (Auto) 1.71 K/mm3 1.23 K/mm3 (0.9-3.2) (0.9-3.2) Alexander # (Auto) 0.8 H K/mm3 0.8 H K/mm3 (0.1-0.6) (0.1-0.6) Eos # (Auto) 0.2 K/mm3 0.6 H K/mm3 (0-0.3) (0-0.3) Baso # (Auto) 0.1 K/mm3 0.0 K/mm3 (0.0-0.1) (0.0-0.1) Abs Immat Gran (auto) 0.10 H K/mm3 0.03 K/mm3 (0.00-0.031) (0.00-0.031) Absolute Neuts (auto) 7.0 H K/mm3 6.3 K/mm3 (1.3-6.7) (1.3-6.7) Absolute Nucleated RBC 0.000 K/mm3 0.000 K/mm3 (0.0-0.012) (0.0-0.012) Nucleated RBC % 0.0 % 0.0 % (0.0-0.2) (0.0-0.2) PT 13.6 Seconds (11.1-14.7) INR 1.0 APTT 25.7 Seconds (22.3-36.8) Sodium 136 L mmol/L 134 L mmol/L (137-145) (137-145) Potassium 4.0 mmol/L 4.3 mmol/L (3.4-5.0) (3.4-5.0) Chloride 103 mmol/L 102 mmol/L (98-107) (98-107) Carbon Dioxide 23 mmol/L 29 mmol/L (22-30) (22-30) Anion Gap 10 mmol/L 3 L mmol/L (4-12) (4-12) BUN 19 H mg/dL 14 D mg/dL (7-17) (7-17) Creatinine 0.50 L mg/dL 0.63 L mg/dL (0.7-1.0) (0.7-1.0) Estim Creat Clear Calc Not Reportable 50 ml/min Estimated GFR > 60 > 60 (59 - ) (59 - ) Glucose 125 H mg/dL 128 H mg/dL (65-110) (65-110) Calcium 8.9 mg/dL 8.7 mg/dL (8.4-10.2) (8.4-10.2) Total Bilirubin 0.6 mg/dL (0.2-1.3) AST 39 H U/L (14-36) ALT 15 U/L (6-35) Alkaline Phosphatase 93 U/L (38-126) Troponin I < 0.012 ng/mL (0.000-0.034) Total Protein 8.4 H g/dL (6.3-8.2) Albumin 4.1 g/dL (3.5-5.1) Urine Color Yellow (Yellow) Urine Appearance Cloudy H (Clear) Urine pH 7.5 (5.0-9.0) Ur Specific [place] 1.014 (1.001-1.035) Urine Protein Trace mg/dL (Negative) Urine Glucose (UA) Negative mg/dL (Negative) Urine Ketones Negative mg/dL (Negative) Ur Blood (Man) 1+ H (Negative) Urine Nitrate Positive H (Negative) Urine Bilirubin Negative (Negative) Urine Urobilinogen 1.0 mg/dL (<2.0) Leukocyte Esterase Rfl Trace H TANG/UL (Negative) Urine RBC 6-10 H /hpf (0-2) Urine WBC 0-5 /hpf (0-3) Ur Squamous Epith Cells None seen /hpf (Few) Urine Bacteria 4+ /hpf Urine Casts 0-2 Patient hx anesthesia problems: none Family hx anesthesia problems: none Results Review: All pre-operative results and documents have been reviewed as part of the pre- operative evaluation. [facility] Past Medical History Medical History (Updated 04/26/25 @ 08:03 by Eduardo Cheney DO) LBBB (left bundle branch block) Hypothyroidism (acquired) Mixed hyperlipidemia Paroxysmal atrial fibrillation Fall Generalized weakness Generalized osteoarthritis of multiple sites Depressed Bilateral shoulder pain Rash of groin Sore throat Adult BMI 19-24 kg/sq m RUQ pain Toenail fungus Surgical History Surgical History (Updated 04/26/25 @ 08:03 by Eduardo Cheney DO) S/P ablation of atrial fibrillation Family History Family History Mother Hypertension Cerebrovascular accident Family history of malignant neoplasm of ovary Family history of malignant neoplasm Father Family history of coronary artery disease Sibling Family history of malignant neoplasm of testis Other Diabetes mellitus Social History Social History Smoking status: Former smoker Second hand tobacco smoke exposure: No Alcohol intake: never Substance use: never Substance use type: does not use Do You Feel Safe in your Home?: Yes Lack of Transportation: No Lack of Food: Never True Current Housing: I Have Housing Concerned About Future Housing: No Difficulty Paying Gas/Electric Bills: No Difficulty Paying for Meds: No Currently Unemployed: No Education: Bachelor's Degree Difficulty w/ Childcare or Family Care: No Living arrangements: alone 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 Informed Consent: The patient's anesthetic plan and its attendant risks and benefits were di scussed with the patient/family/POA. Questions were solicited and answers provided to the satisfaction of the patient/family/POA.
[2025-04-26] MEDS: CLINDAMYCIN 900 MG/D5W 50 ML 900 MG/50 ML PIGGYBACK 50 MG IVPB (08:07)
[2025-04-26] MEDS: LIDO 1%/EPINEPHRINE 1:100,000 50 ML VIAL (08:36)
[2025-04-26] MEDS: TRIAMCINOLONE ACET INJ 40 MG/ML VIAL 80 MG IM (08:36)
[2025-04-26] MEDS: VANCOMYCIN HCL 1,000 MG VIAL 1000 MG TOPICAL (09:28)
[2025-04-26] MEDS: LACTATED RINGERS 1,000 ML 30 ML IV CONT ×2 (10:26)
[2025-04-26] MEDS: fentaNYL CITRATE INJ (*CRX) 100 MCG/2 ML VIAL 25 MCG IV PUSH ×8 (10:30→11:26)
--- NOTE | 2025-04-26 10:52 | W.PM.PROC2 ---
Procedure Note - Detailed Date of Procedure 04/26/25 Pre-op Diagnosis Right femoral neck fracture Right shoulder arthritis Post-op Diagnosis Same Procedure Performed Right Hip - Open treatment of femoral neck fracture proximal and, neck with prosthetic replacement (34823) Right shoulder intra-articular injection (27963) Surgeon Oscar Paulino MD Anesthesia General Indications 79-year-old female right hip displaced proximal femoral fracture femoral neck fracture after a fall at home Findings Right hip femoral neck fracture displaced Right shoulder arthritis Description of Procedure After obtaining consent with regards to the right hip hemiarthroplasty as well as a right shoulder injection, having spoken with the patient and her 2 daughters, explained to them the procedure and the risks benefits alternatives and complications of this procedure, they understood the treatment recommendation and agreed with surgical plan with the risks that included but are not limited to infection nerve blood vessel injury DVT dislocation limb length discrepancy. The patient was again interview the morning of the procedure in the holding area and I marked her right hip. Patient was then brought to the operating room placed in supine position which time she underwent general anesthesia. The patient was then placed in lateral decubitus position with the right side up. The 1st aspect of the procedure was performed after a time-out which was a right shoulder injection for right shoulder arthritis. I injected 80 mg of Kenalog and lidocaine into the right shoulder joint under sterile conditions. I then proceeded with the 2nd part of the procedure which was preparation for a right hip hemiarthroplasty. The patient was again placed in lateral decubitus position with right side up and all bone bony prominences were padded as well as an axillary roll. The right hip was then prepped and draped in standard sterile fashion. A 2nd time-out was performed to verify correct patient correct site of surgery correct procedure and to verify that indeed she had clindamycin IV within 1 hour of the incision time. I then made a incision over the lateral aspect of the patient's right hip and through a Lena long and voc approach I exposed the posterior aspect of the patient's hip sharp dissection was carried down to identify the ITB band after the ITB band was identified this was sharply dissected and then I used a Charnley retractor to retract the ITB band out of the way I exposed the posterior aspect of the patient's hip identified the piriformis intact this and then did AT capsulotomy and tagged the capsule and then I did my femoral neck cut at approximately 1.5 cm from the lesser trochanter. I then proceeded to remove the femoral head and measured this at 43 mm. I then proceeded to use a box osteotome to enter into the proximal femur and then I broached up to a size 3 with the appropriate anteversion which is the patient's anatomic anteversion. I then proceeded to trial and she had excellent stability with an extended offset and a -3 neck length. She had excellent stability with hip flexion at 90? 80 adduction to 10? and internal rotation to 80?. I then proceeded to irrigate copiously and then I removed the trial implants and placed the actual implants which is a size 3 [place] noncemented femoral stem. The extended offset of this stem was placed. I then trialed again and had the exact same stability profile. I then irrigated copiously. Secondary to the large hematoma that I had to evacuate at the beginning of the procedure I elected to place a drain in the deep layer. This drain was then sutured for secure fixation externally with a nylon suture. I then proceeded to close the ITB band using Vicryl suture in interrupted fashion. Prior to this I closed the capsule, repaired the capsule using Vicryl suture and then I repaired the piriformis as well as the capsule to the posterior aspect of the patient's hip through 2 drill holes. I then proceeded to close the ITB band using interrupted Vicryl suture and I closed the skin using 2-0 Vicryl suture in the dermal layer and marian were placed the wound was then bandaged in sterile fashion she was transferred to the recovery room in stable condition. There were no complications. Implants [place] Accolate noncemented femoral stem size 3 with a bipolar component offset, 43 mm -3 neck length Estimated Blood Loss 200 Drains Yes Packing No Pathology None sent Complications No immediate complications Condition Stable Disposition PACU
[2025-04-26] MEDS: ONDANSETRON INJ 4 MG/2 ML VIAL IV PUSH (11:12)
[2025-04-26 11:13] LABS: Hematocrit 34.4 % (37.0-47.0); Hemoglobin 10.9 g/dL (12.0-15.0)
--- NOTE | 2025-04-26 11:57 | PC.NURSE ---
Returned from OR per bed on 2 L NC. 99% SpO2. Report received from NAKIA Humphrey.
[2025-04-26] MEDS: LEVOTHYROXINE SODIUM 50 MCG TABLET BY MOUTH (13:53)
[2025-04-26] MEDS: CELECOXIB 200 MG CAPSULE BY MOUTH (13:53)
[2025-04-26] MEDS: ROSUVASTATIN 10 MG TABLET BY MOUTH (13:54)
[2025-04-26] MEDS: DULoxetine HCL 60 MG CAPSULE.DR PO (13:54)
[2025-04-26] MEDS: METOPROLOL TARTRATE 50 MG TAB 100 MG PO ×2 (13:54→20:44)
[2025-04-26] MEDS: ACETAMINOPHEN 500 MG TABLET PO (18:11)
[2025-04-26] MEDS: FAMOTIDINE 20 MG TABLET PO (20:44)
[2025-04-26] MEDS: ASPIRIN 81 MG ENTERIC TABLET PO (20:44)
[2025-04-26] MEDS: SENNOSIDES 8.6 MG TABLET PO (20:46)
[2025-04-26] MEDS: levoFLOXacin 750 MG/D5W 150 ML 750 MG/150 ML BAG 100 MG IVPB (20:48)
[2025-04-26] MEDS: VANCOMYCIN HCL 1,000 MG in SODIUM CHLORIDE 0.9% IV 250 ML 250 MG IVPB (20:55)
[2025-04-27] VITALS (8 sets, daily range): BP systolic 117–127; BP diastolic 49–60; PULSE 77–87; RESP 14–18; TEMP 36.2–36.8; O2SAT 96–98
[2025-04-27 05:43] LABS: Hematocrit 30.8 % (37.0-47.0); Hemoglobin 9.7 g/dL (12.0-15.0); Immature Granulocyte Percent A 0.6 % (0-0.5); Lymphocytes Absolute Auto 0.85 K/mm3 (0.9-3.2); Mean Corpuscular HGB Conc 31.5 g/dl (32-36); Mean Corpuscular Hemoglobin 29.8 pg (26-34); Mean Corpuscular Volume 94.5 fl (80-100); Nucleated Red Blood Cells Absolute Auto 0.000 K/mm3 (0.0-0.012); Nucleated Red Blood Cells Perc 0.0 % (0.0-0.2); Platelet Count Result 155 k/mm3 (150-375); Red Blood Count 3.26 M/mm3 (4.2-5.4); White Blood Count 12.3 K/mm3 (4.5-10.0)
[2025-04-27 06:10] LABS: Alanine Aminotransferase 130 U/L (6-35); Albumin Level 3.2 g/dL (3.5-5.1); Alkaline Phosphatase 136 U/L (38-126); Anion Gap 4 mmol/L (4-12); Aspartate Amino Transferase 163 U/L (14-36); Bilirubin,Total 0.4 mg/dL (0.2-1.3); Blood Urea Nitrogen 16 mg/dL (7-17); Calcium 8.4 mg/dL (8.4-10.2); Carbon Dioxide 26 mmol/L (22-30); Chloride 103 mmol/L (98-107); Estimated CRCL calculation 50 ml/min; Estimated Glomerular Filt Rate > 60; Glucose 145 mg/dL (65-110); Potassium 4.3 mmol/L (3.4-5.0); Sodium 133 mmol/L (137-145); Total Protein 6.9 g/dL (6.3-8.2)
--- NOTE | 2025-04-27 08:18 | P.PNIM_ITS ---
Progress Note: A&P Assessment and Plan (1) Fall from ground level: Code(s): W18.30XA - Fall on same level, unspecified, initial encounter Status: Acute Assessment and Plan: UA pending PT OT after surgery fall precautions 04/26: UA positive for nitrites, trace leuks, UC pending -Mechanical fall, no head, c-spine, or any other trauma -PT/OT once cleared post op by ortho 04/27: States that shortly before this fall, she did feel as if she was getting a UTI d/t dysuria, has a ray now so unable to assess this but it will be removed today. -UC + for Gram neg bacilli, pending sensitivities, continue Levaquin -PT/OT (2) Femoral neck fracture: Qualifiers: Encounter type: initial encounter Fracture type: closed Laterality: right Qualified Code(s): S72.001A - Fracture of unspecified part of neck of right femur, initial encounter for closed fracture Code(s): S72.009A - Fracture of unspecified part of neck of unspecified femur, initial encounter for closed fracture Status: Acute Assessment and Plan: orthopedics consulted NPO midnight okay for diet now possible surgery in the morning pain management bowel protocol 04/26: Plan for surgical repair today at 0800 via ortho: R hemiarthroplasty -PT/OT once cleared post op by ortho -Pain control 04/27: Pt with minimal pain today, only with movement -BM yesterday afternoon (3) Essential (primary) hypertension: Code(s): I10 - Essential (primary) hypertension Status: Acute Assessment and Plan: Continue amlodipine (4) Paroxysmal atrial fibrillation: Code(s): I48.0 - Paroxysmal atrial fibrillation Status: Acute Assessment and Plan: Continue metoprolol (5) Mixed hyperlipidemia: Code(s): E78.2 - Mixed hyperlipidemia Status: Acute Assessment and Plan: Continue Crestor (6) Hypothyroidism (acquired): Code(s): E03.9 - Hypothyroidism, unspecified Status: Acute Assessment and Plan: Continue levothyroxine (7) UTI (urinary tract infection): Code(s): N39.0 - Urinary tract infection, site not specified Status: Acute Assessment and Plan: IV levofloxacin 04/26: UA positive for nitrites, trace leuks, UC pending -Continue levofloxacin 04/27: States that shortly before this fall, she did feel as if she was getting a UTI d/t dysuria, has a ray now so unable to assess this but it will be removed today. -UC + for Gram neg bacilli, pending sensitivities, continue Levaquin (8) Shoulder pain: Qualifiers: Chronicity: acute Laterality: right Qualified Code(s): M25.511 - Pain in right shoulder Code(s): M25.519 - Pain in unspecified shoulder Status: Acute Assessment and Plan: Acute on chronic R shoulder pain flared by this fall -XR yielding: No acute fracture or malalignment. Severe degenerative changes, underlying rotator cuff injury suspected. Soft tissues unremarkable. -Ortho with plans for shoulder injection while under during surgery today 04/27: Pt reports increased ROM in shoulder s/p injection, will f/u with ortho for additional injections if needed Plan Pain control, PT/OT Time Spent With Patient Time: 30 Subjective Date/time seen: 04/27/25 0956 Interval history: Pt awake and lying in bed comfortably upon my arrival to her room. Pt reports no pain while lying but if she were to move, she would rate the pain 2/10. Pt denies any other sx. Pt reports that she had a BM yesterday afternoon. States that shortly before this fall, she did feel as if she was getting a UTI d/t dysuria, has a ray now so unable to assess this but it will be removed today. Review of Systems Review of Systems: 12 systems were reviewed and are negative except for as per HPI. Exam Const: General: comfortable and no acute distress HENMT: Face/Nose/Sinus: Normal nares present Mouth: Yes moist mucous membranes Eyes: General: appearance normal, both eyes and all related structures Sclera: sclerae normal Neck: Neck: supple Resp: Effort & Inspection: normal respiratory effort Auscultation: clear to auscultation bilaterally Cardio: Rate: regular rate Rhythm: regular rhythm GI: Inspection: non-distended Auscultation: normal bowel sounds Skin: General skin exam: normal color and no rashes or lesions noted Neuro: Speech: normal speech Motor exam (neuro): Normal motor muscle tone present throughout Sensory Exam: normal sensation Extrem: Other: R hip surgical dressing CDI, hemovac in place. PMS intact Psych: Mental Status: mental status grossly normal Affect: normal affect Objective Data Vital Signs Vital Signs: Vital Signs - 24 hr 04/26/25 10:26 04/26/25 10:30 04/26/25 10:45 Temperature 98.4 F Pulse Rate 80 73 74 Respiratory Rate 17 20 19 Blood Pressure 143/56 H 136/57 L 127/48 L Pulse Oximetry 100 98 100 Oxygen Delivery Simple Face Mask Simple Face Mask Room Air Oxygen Flow Rate 10 10 04/26/25 11:00 04/26/25 11:15 04/26/25 11:30 Temperature Pulse Rate 68 70 71 Respiratory Rate 12 12 12 Blood Pressure 111/46 L 117/55 L 125/53 L Pulse Oximetry 100 100 100 Oxygen Delivery Nasal Cannula Nasal Cannula Nasal Cannula Oxygen Flow Rate 2 2 2 04/26/25 11:58 04/26/25 12:14 04/26/25 12:44 Temperature 97.0 F L 97.7 F 97.2 F L Pulse Rate 69 70 69 Respiratory Rate 16 12 16 Blood Pressure 124/52 L 121/53 L 125/50 L Pulse Oximetry 100 100 100 Oxygen Delivery Oxygen Flow Rate 04/26/25 13:44 04/26/25 13:54 04/26/25 14:25 Temperature 97.2 F L Pulse Rate 69 69 Respiratory Rate 16 Blood Pressure 125/48 L Pulse Oximetry 96 99 Oxygen Delivery Room Air Oxygen Flow Rate 04/26/25 15:04 04/26/25 15:13 04/26/25 15:33 Temperature Pulse Rate Respiratory Rate Blood Pressure Pulse Oximetry 97 Oxygen Delivery Room Air Room Air Room Air Oxygen Flow Rate 04/26/25 17:44 04/26/25 20:00 04/26/25 20:44 Temperature 97.4 F L Pulse Rate 75 70 Respiratory Rate 14 Blood Pressure 108/47 L Pulse Oximetry 97 97 Oxygen Delivery Room Air Oxygen Flow Rate 04/26/25 21:44 04/27/25 00:21 04/27/25 04:07 Temperature 97.8 F 98 F 97.6 F Pulse Rate 80 81 85 Respiratory Rate 18 18 16 Blood Pressure 116/53 L 127/57 L 117/60 Pulse Oximetry 97 97 98 Oxygen Delivery Oxygen Flow Rate Intake/Output Intake/Output: Intake & Output 04/24/25 04/25/25 04/26/25 04/27/25 23:59 23:59 23:59 23:59 Intake Total 390 1268 250 Output Total 400 1330 520 [facility] -10 -62 -270 Meds/Results Medications: Active Medications Generic Name Dose Route Start Last Admin Trade Name Freq PRN Reason Stop Dose Admin Acetaminophen 500 mg 04/26/25 10:46 04/26/25 18:11 Acetaminophen 500 Mg Tablet PO 500 mg Q6H PRN Administration Pain Rated 1-3 Hydrocodone Bitart/Acetaminophen 1 tab 04/26/25 10:46 Hydrocodone/Acetaminophen (*Crx) 5-325 Mg Tablet PO Q4H PRN Pain Rated 4-6 Hydrocodone Bitart/Acetaminophen 1 tab 04/26/25 10:46 Hydrocodone/Acetaminophen (*Crx) 10-325 Mg Tablet PO Q4H PRN Pain Rated 7-10 Amlodipine Besylate 10 mg 04/26/25 09:00 04/26/25 13:53 Amlodipine Besylate 10 Mg Tablet PO 10 mg DAILY GABBIE Administration Aspirin 81 mg 04/26/25 21:00 04/26/25 20:44 Aspirin 81 Mg Enteric Tablet PO 81 mg Q12HR GABBIE Administration Celecoxib 200 mg 04/26/25 09:00 04/26/25 13:53 Celecoxib 200 Mg Capsule BY MOUTH 200 mg DAILY GABBIE Administration Duloxetine HCl 60 mg 04/26/25 09:00 04/26/25 13:54 Duloxetine Hcl 60 Mg Capsule.Dr PO 60 mg DAILY GABBIE Administration Famotidine 20 mg 04/26/25 21:00 04/26/25 20:44 Famotidine 20 Mg Tablet PO 20 mg Q12HR GABBIE Administration Fentanyl Citrate 25 mcg 04/26/25 08:06 04/26/25 11:26 Fentanyl Citrate Inj (*Crx) 100 Mcg/2 Ml Vial IV PUSH 25 mcg Q2M PRN Administration Pain Levofloxacin/Dextrose 750 mg in 150 mls @ 100 mls/hr 04/25/25 20:00 04/26/25 20:48 Levaquin 750 Mg/D5w 150 Ml IVPB 100 mls/hr Q24H GABBIE Administration Vancomycin HCl 1,000 mg/ 250 mls @ 250 mls/hr 04/26/25 20:00 04/26/25 21:55 Sodium Chloride IVPB 04/27/25 08:59 Infused Q12H GABBIE Infusion Levothyroxine Sodium 50 mcg 04/26/25 06:30 04/26/25 13:53 Levothyroxine Sodium 50 Mcg Tablet BY MOUTH 50 mcg DAILY@0630 GABBIE Administration Methocarbamol 500 mg 04/25/25 13:00 04/26/25 20:46 Methocarbamol 500 Mg Tablet PO 500 mg QID GABBIE Administration Metoprolol Tartrate 100 mg 04/25/25 21:00 04/26/25 20:44 Metoprolol Tartrate 50 Mg Tab PO 100 mg Q12HR GABBIE Administration Morphine Sulfate 2 mg 04/26/25 10:46 Morphine Sulfate (*Crx) 4 Mg/Ml Inj IV PUSH Q2H PRN Breakthrough Pain Rated 4-6 or NPO Morphine Sulfate 4 mg 04/26/25 10:46 Morphine Sulfate (*Crx) 4 Mg/Ml Inj IV PUSH Q2H PRN Breakthrough Pain Rated 7-10 or NPO Naloxone HCl 0.1 mg 04/26/25 10:46 Naloxone Hcl 0.4 Mg/Ml Vial IV PUSH Q2M PRN Opiate Reversal Ondansetron HCl 4 mg 04/26/25 08:06 04/26/25 11:12 Ondansetron Inj 4 Mg/2 Ml Vial IV PUSH 4 mg ONCE PRN Administration Nausea Polyethylene Glycol 17 gm 04/27/25 09:00 Polyethylene Glycol 3350 17 Gm Powd.Pack PO QAM [facility] Rosuvastatin Calcium 10 mg 04/26/25 09:00 04/26/25 13:54 Rosuvastatin 10 Mg Tablet BY MOUTH 10 mg DAILY GABBIE Administration Senna 8.6 mg 04/25/25 21:00 04/26/25 20:46 Sennosides 8.6 Mg Tablet PO 8.6 mg HS GABBIE Administration Senna/Docusate Sodium 2 tab 04/26/25 17:00 04/26/25 18:52 Senna/Docusate Sodium Tablet PO Not Given BID GABBIE Trimethobenzamide HCl 200 mg 04/25/25 19:12 Trimethobenzamide Hcl 200 Mg/2 Ml Vial IM Q6H PRN Nausea And Vomiting Radiology Results: ITS Impressions Head CT 04/25/25 10:06 IMPRESSION: 1. No gross acute intracranial abnormality. Cervical Spine CT 04/25/25 10:07 IMPRESSION: No fracture lucency C1-C7. Chest X-Ray 04/25/25 10:43 Impression: No acute cardiopulmonary abnormality. Hip/Pelvis X-Ray 04/25/25 10:43 IMPRESSION: Right femoral neck fracture. Questionable findings in the right pubic bone. CT is recommended for further evaluation. Pelvis CT 04/25/25 12:20 IMPRESSION: 1. Transcervical fracture of the proximal right femur with typical pattern of displacement and external rotation. 2. Nondisplaced fracture of the right pubic body. 3. Large ball of stool at rectum with rectal stranding suggesting secondary stercoral colitis. Shoulder X-Ray 04/25/25 15:31 Impression: No acute fracture or malalignment. Pelvis X-Ray 04/26/25 14:49 Impression: No acute fracture or malalignment. Labs Labs: Laboratory Results - last 24 hr 04/26/25 04/27/25 11:08 05:32 WBC 12.3 H RBC 3.26 L Hgb 10.9 L 9.7 L Hct 34.4 L 30.8 L MCV 94.5 MCH 29.8 MCHC 31.5 L RDW 13.4 Plt Count 155 MPV 9.8 Immature Gran % (Auto) 0.6 H Neut % (Auto) 85.3 H Lymph % (Auto) 6.9 L [place] % (Auto) 7.1 Eos % (Auto) 0.0 Baso % (Auto) 0.1 L Lymph # (Auto) 0.85 L [place] # (Auto) 0.9 H Eos # (Auto) 0.0 Baso # (Auto) 0.0 Abs Immat Gran (auto) 0.07 H Absolute Neuts (auto) 10.5 H Absolute Nucleated RBC 0.000 Nucleated RBC % 0.0 Sodium 133 L Potassium 4.3 Chloride 103 Carbon Dioxide 26 Anion Gap 4 BUN 16 Creatinine 0.63 L Estim Creat Clear Calc 50 Estimated GFR > 60 Glucose 145 H Calcium 8.4 Total Bilirubin 0.4 AST 163 H ALT 130 H Alkaline Phosphatase 136 H Total Protein 6.9 Albumin 3.2 L Quality VTE Prophylaxis VTE prophylaxis: mechanical ordered
[2025-04-27] MEDS: VANCOMYCIN HCL 1,000 MG in SODIUM CHLORIDE 0.9% IV 250 ML 250 MG IVPB (09:02)
[2025-04-27] MEDS: DULoxetine HCL 60 MG CAPSULE.DR PO (09:03)
[2025-04-27] MEDS: METOPROLOL TARTRATE 50 MG TAB 100 MG PO ×2 (09:03→20:45)
[2025-04-27] MEDS: ROSUVASTATIN 10 MG TABLET BY MOUTH (09:03)
[2025-04-27] MEDS: SENNA/DOCUSATE SODIUM TABLET 2 TAB PO ×2 (09:03→16:27)
[2025-04-27] MEDS: FAMOTIDINE 20 MG TABLET PO ×2 (09:04→20:46)
[2025-04-27] MEDS: CELECOXIB 200 MG CAPSULE BY MOUTH (09:04)
[2025-04-27] MEDS: ASPIRIN 81 MG ENTERIC TABLET PO ×2 (09:04→20:46)
--- NOTE | 2025-04-27 11:24 | PM.PNORT ---
Progress Note: A&P Assessment and Plan (1) Displaced fracture of right femoral neck: Code(s): S72.001A - Fracture of unspecified part of neck of right femur, initial encounter for closed fracture Status: Acute Plan Doing very well, patient desires to go to rehab facility prior to going home. - Leave dressing on for 10 days. - then dry dressing change - ASA for DVT for 4 wks post op - follow up with Dr Paulino 2 weeks post op for staple removal. Subjective Subjective Date/Time Seen: 04/27/25 11:24 Principal diagnosis: Right Hip Pieter Interval history: Minimal pain Exam Narrative: Right Hip B/D Objective Data Vital Signs Vital Signs: Vital Signs - 24 hr 04/26/25 11:30 04/26/25 11:58 04/26/25 12:14 Temperature 36.1 C L 36.5 C Pulse Rate 71 69 70 Respiratory Rate 12 16 12 Blood Pressure 125/53 L 124/52 L 121/53 L Pulse Oximetry 100 100 100 Oxygen Delivery Nasal Cannula Oxygen Flow Rate 2 04/26/25 12:44 04/26/25 13:44 04/26/25 13:54 Temperature 36.2 C L 36.2 C L Pulse Rate 69 69 69 Respiratory Rate 16 16 Blood Pressure 125/50 L 125/48 L Pulse Oximetry 100 96 Oxygen Delivery Oxygen Flow Rate 04/26/25 14:25 04/26/25 15:04 04/26/25 15:13 Temperature Pulse Rate Respiratory Rate Blood Pressure Pulse Oximetry 99 97 Oxygen Delivery Room Air Room Air Room Air Oxygen Flow Rate 04/26/25 15:33 04/26/25 17:44 04/26/25 20:00 Temperature 36.3 C L Pulse Rate 75 Respiratory Rate 14 Blood Pressure 108/47 L Pulse Oximetry 97 97 Oxygen Delivery Room Air Room Air Oxygen Flow Rate 04/26/25 20:44 04/26/25 21:44 04/27/25 00:21 Temperature 36.6 C 36.6 C Pulse Rate 70 80 81 Respiratory Rate 18 18 Blood Pressure 116/53 L 127/57 L Pulse Oximetry 97 97 Oxygen Delivery Oxygen Flow Rate 04/27/25 04:07 04/27/25 09:03 04/27/25 09:44 Temperature 36.4 C 36.2 C L Pulse Rate 85 82 77 Respiratory Rate 16 14 Blood Pressure 117/60 125/51 L Pulse Oximetry 98 96 Oxygen Delivery Oxygen Flow Rate Intake/Output Intake/Output: Intake & Output 04/24/25 04/25/25 04/26/25 04/27/25 23:59 23:59 23:59 23:59 Intake Total 390 1268 570 Output Total [address] [facility] -10 -62 -967 Meds/Results Medications: Active Medications Generic Name Dose Route Start Last Admin Trade Name Freq PRN Reason Stop Dose Admin Acetaminophen 500 mg 04/26/25 10:46 04/26/25 18:11 Acetaminophen 500 Mg Tablet PO 500 mg Q6H PRN Administration Pain Rated 1-3 Hydrocodone Bitart/Acetaminophen 1 tab 04/26/25 10:46 Hydrocodone/Acetaminophen (*Crx) 5-325 Mg Tablet PO Q4H PRN Pain Rated 4-6 Hydrocodone Bitart/Acetaminophen 1 tab 04/26/25 10:46 Hydrocodone/Acetaminophen (*Crx) 10-325 Mg Tablet PO Q4H PRN Pain Rated 7-10 Amlodipine Besylate 10 mg 04/26/25 09:00 04/27/25 09:03 Amlodipine Besylate 10 Mg Tablet PO 10 mg DAILY GABBIE Administration Aspirin 81 mg 04/26/25 21:00 04/27/25 09:04 Aspirin 81 Mg Enteric Tablet PO 81 mg Q12HR GABBIE Administration Celecoxib 200 mg 04/26/25 09:00 04/27/25 09:04 Celecoxib 200 Mg Capsule BY MOUTH 200 mg DAILY GABBIE Administration Duloxetine HCl 60 mg 04/26/25 09:00 04/27/25 09:03 Duloxetine Hcl 60 Mg Capsule.Dr PO 60 mg DAILY GABBIE Administration Famotidine 20 mg 04/26/25 21:00 04/27/25 09:04 Famotidine 20 Mg Tablet PO 20 mg Q12HR GABBIE Administration Fentanyl Citrate 25 mcg 04/26/25 08:06 04/26/25 11:26 Fentanyl Citrate Inj (*Crx) 100 Mcg/2 Ml Vial IV PUSH 25 mcg Q2M PRN Administration Pain Levofloxacin/Dextrose 750 mg in 150 mls @ 100 mls/hr 04/25/25 20:00 04/26/25 20:48 Levaquin 750 Mg/D5w 150 Ml IVPB 100 mls/hr Q24H GABBIE Administration Levothyroxine Sodium 50 mcg 04/26/25 06:30 04/27/25 08:57 Levothyroxine Sodium 50 Mcg Tablet BY MOUTH Not Given DAILY@0630 [facility] Methocarbamol 500 mg 04/25/25 13:00 04/27/25 09:04 Methocarbamol 500 Mg Tablet PO 500 mg QID GABBIE Administration Metoprolol Tartrate 100 mg 04/25/25 21:00 04/27/25 09:03 Metoprolol Tartrate 50 Mg Tab PO 100 mg Q12HR GABBIE Administration Morphine Sulfate 2 mg 04/26/25 10:46 Morphine Sulfate (*Crx) 4 Mg/Ml Inj IV PUSH Q2H PRN Breakthrough Pain Rated 4-6 or NPO Morphine Sulfate 4 mg 04/26/25 10:46 Morphine Sulfate (*Crx) 4 Mg/Ml Inj IV PUSH Q2H PRN Breakthrough Pain Rated 7-10 or NPO Naloxone HCl 0.1 mg 04/26/25 10:46 Naloxone Hcl 0.4 Mg/Ml Vial IV PUSH Q2M PRN Opiate Reversal Ondansetron HCl 4 mg 04/26/25 08:06 04/26/25 11:12 Ondansetron Inj 4 Mg/2 Ml Vial IV PUSH 4 mg ONCE PRN Administration Nausea Polyethylene Glycol 17 gm 04/27/25 09:00 04/27/25 09:04 Polyethylene Glycol 3350 17 Gm Powd.Pack PO 17 gm QAM GABBIE Administration Rosuvastatin Calcium 10 mg 04/26/25 09:00 04/27/25 09:03 Rosuvastatin 10 Mg Tablet BY MOUTH 10 mg DAILY GABBIE Administration Senna 8.6 mg 04/25/25 21:00 04/26/25 20:46 Sennosides 8.6 Mg Tablet PO 8.6 mg HS GABBIE Administration Senna/Docusate Sodium 2 tab 04/26/25 17:00 04/27/25 09:03 Senna/Docusate Sodium Tablet PO 2 tab BID GABBIE Administration Trimethobenzamide HCl 200 mg 04/25/25 19:12 Trimethobenzamide Hcl 200 Mg/2 Ml Vial IM Q6H PRN Nausea And Vomiting Radiology Results: ITS Impressions Head CT 04/25/25 10:06 IMPRESSION: 1. No gross acute intracranial abnormality. Cervical Spine CT 04/25/25 10:07 IMPRESSION: No fracture lucency C1-C7. Chest X-Ray 04/25/25 10:43 Impression: No acute cardiopulmonary abnormality. Hip/Pelvis X-Ray 04/25/25 10:43 IMPRESSION: Right femoral neck fracture. Questionable findings in the right pubic bone. CT is recommended for further evaluation. Pelvis CT 04/25/25 12:20 IMPRESSION: 1. Transcervical fracture of the proximal right femur with typical pattern of displacement and external rotation. 2. Nondisplaced fracture of the right pubic body. 3. Large ball of stool at rectum with rectal stranding suggesting secondary stercoral colitis. Shoulder X-Ray 04/25/25 15:31 Impression: No acute fracture or malalignment. Pelvis X-Ray 04/26/25 14:49 Impression: No acute fracture or malalignment. Labs Labs: Laboratory Results - last 24 hr 04/27/25 05:32 WBC 12.3 H RBC 3.26 L Hgb 9.7 L Hct 30.8 L MCV 94.5 MCH 29.8 MCHC 31.5 L RDW 13.4 Plt Count 155 MPV 9.8 Immature Gran % (Auto) 0.6 H Neut % (Auto) 85.3 H Lymph % (Auto) 6.9 L [place] % (Auto) 7.1 Eos % (Auto) 0.0 Baso % (Auto) 0.1 L Lymph # (Auto) 0.85 L [place] # (Auto) 0.9 H Eos # (Auto) 0.0 Baso # (Auto) 0.0 Abs Immat Gran (auto) 0.07 H Absolute Neuts (auto) 10.5 H Absolute Nucleated RBC 0.000 Nucleated RBC % 0.0 Sodium 133 L Potassium 4.3 Chloride 103 Carbon Dioxide 26 Anion Gap 4 BUN 16 Creatinine 0.63 L Estim Creat Clear Calc 50 Estimated GFR > 60 Glucose 145 H Calcium 8.4 Total Bilirubin 0.4 AST 163 H ALT 130 H Alkaline Phosphatase 136 H Total Protein 6.9 Albumin 3.2 L
[2025-04-27] MEDS: SENNOSIDES 8.6 MG TABLET PO (20:45)
[2025-04-27] MEDS: levoFLOXacin 750 MG/D5W 150 ML 750 MG/150 ML BAG 100 MG IVPB (20:49)
[2025-04-28 04:35] LABS: Hematocrit 31.2 % (37.0-47.0); Hemoglobin 9.8 g/dL (12.0-15.0); Immature Granulocyte Percent A 0.9 % (0-0.5); Lymphocytes Absolute Auto 1.27 K/mm3 (0.9-3.2); Mean Corpuscular HGB Conc 31.4 g/dl (32-36); Mean Corpuscular Hemoglobin 29.5 pg (26-34); Mean Corpuscular Volume 94.0 fl (80-100); Nucleated Red Blood Cells Absolute Auto 0.000 K/mm3 (0.0-0.012); Nucleated Red Blood Cells Perc 0.0 % (0.0-0.2); Platelet Count Result 191 k/mm3 (150-375); Red Blood Count 3.32 M/mm3 (4.2-5.4); White Blood Count 13.3 K/mm3 (4.5-10.0)
[2025-04-28] MEDS: ACETAMINOPHEN 500 MG TABLET PO (04:39)
[2025-04-28 04:49] LABS: Alanine Aminotransferase 84 U/L (6-35); Albumin Level 3.4 g/dL (3.5-5.1); Alkaline Phosphatase 120 U/L (38-126); Anion Gap 5 mmol/L (4-12); Aspartate Amino Transferase 79 U/L (14-36); Bilirubin,Total 0.4 mg/dL (0.2-1.3); Blood Urea Nitrogen 16 mg/dL (7-17); Calcium 8.4 mg/dL (8.4-10.2); Carbon Dioxide 25 mmol/L (22-30); Chloride 106 mmol/L (98-107); Estimated CRCL calculation 55 ml/min; Estimated Glomerular Filt Rate > 60; Glucose 122 mg/dL (65-110); Potassium 4.2 mmol/L (3.4-5.0); Sodium 136 mmol/L (137-145); Total Protein 7.1 g/dL (6.3-8.2)
[2025-04-28 05:47] VITALS: BP 142/65; PULSE 90; RESP 18; TEMP 37.5; O2SAT 100
[2025-04-28] MEDS: LEVOTHYROXINE SODIUM 50 MCG TABLET BY MOUTH (06:15)
[2025-04-28] MEDS: ROSUVASTATIN 10 MG TABLET BY MOUTH (08:58)
[2025-04-28] MEDS: CELECOXIB 200 MG CAPSULE BY MOUTH (08:58)
[2025-04-28] MEDS: ASPIRIN 81 MG ENTERIC TABLET PO (08:58)
[2025-04-28 08:59] VITALS: PULSE 88
[2025-04-28] MEDS: DULoxetine HCL 60 MG CAPSULE.DR PO (08:59)
[2025-04-28] MEDS: METOPROLOL TARTRATE 50 MG TAB 100 MG PO (08:59)
--- NOTE | 2025-04-28 12:33 | P.DS_ITS ---
DS: Admitting Diagnosis Discharge Date 04/28/2025 Admitting Diagnosis Fall, femur/hip fx DS: Discharge Diagnosis Discharge Diagnosis (1) Fall from ground level: Code(s): W18.30XA - Fall on same level, unspecified, initial encounter Status: Acute Assessment and Plan: UA pending PT OT after surgery fall precautions 04/26: UA positive for nitrites, trace leuks, UC pending -Mechanical fall, no head, c-spine, or any other trauma -PT/OT once cleared post op by ortho 04/27: States that shortly before this fall, she did feel as if she was getting a UTI d/t dysuria, has a ray now so unable to assess this but it will be removed today. -UC + for Gram neg bacilli, pending sensitivities, continue Levaquin -PT/OT 04/28: Continues to be asymptomatic. -UC positive for E coli, sensitive to levofloxacin which she has been on outpt. Continued with oral abx upon discharge to rehab. (2) Femoral neck fracture: Qualifiers: Encounter type: initial encounter Fracture type: closed Laterality: right Qualified Code(s): S72.001A - Fracture of unspecified part of neck of right femur, initial encounter for closed fracture Code(s): S72.009A - Fracture of unspecified part of neck of unspecified femur, initial encounter for closed fracture Status: Acute Assessment and Plan: orthopedics consulted NPO midnight okay for diet now possible surgery in the morning pain management bowel protocol 04/26: Plan for surgical repair today at 0800 via ortho: R hemiarthroplasty -PT/OT once cleared post op by ortho -Pain control 04/27: Pt with minimal pain today, only with movement -BM yesterday afternoon 04/28: Pt discharge to rehab today with ortho f/u. (3) Essential (primary) hypertension: Code(s): I10 - Essential (primary) hypertension Status: Acute Assessment and Plan: Continue amlodipine (4) Paroxysmal atrial fibrillation: Code(s): I48.0 - Paroxysmal atrial fibrillation Status: Acute Assessment and Plan: Continue metoprolol (5) Mixed hyperlipidemia: Code(s): E78.2 - Mixed hyperlipidemia Status: Acute Assessment and Plan: Continue Crestor (6) Hypothyroidism (acquired): Code(s): E03.9 - Hypothyroidism, unspecified Status: Acute Assessment and Plan: Continue levothyroxine (7) UTI (urinary tract infection): Code(s): N39.0 - Urinary tract infection, site not specified Status: Acute Assessment and Plan: IV levofloxacin 04/26: UA positive for nitrites, trace leuks, UC pending -Continue levofloxacin 04/27: States that shortly before this fall, she did feel as if she was getting a UTI d/t dysuria, has a ray now so unable to assess this but it will be removed today. -UC + for Gram neg bacilli, pending sensitivities, continue Levaquin 04/28: Continues to be asymptomatic. -UC positive for E coli, sensitive to levofloxacin which she has been on outpt. Continued with oral abx upon discharge to rehab. (8) Shoulder pain: Qualifiers: Chronicity: acute Laterality: right Qualified Code(s): M25.511 - Pain in right shoulder Code(s): M25.519 - Pain in unspecified shoulder Status: Acute Assessment and Plan: Acute on chronic R shoulder pain flared by this fall -XR yielding: No acute fracture or malalignment. Severe degenerative changes, underlying rotator cuff injury suspected. Soft tissues unremarkable. -Ortho with plans for shoulder injection while under during surgery today 04/27: Pt reports increased ROM in shoulder s/p injection, will f/u with ortho for additional injections if needed Plan Discharge to rehab today with ortho f/u. DS: Summary Hospital Course Reason for hospitalization: Fall, femur/hip fx Hospital Course: The patient is an 79-year-old female with a history of hypertension, hyperlipidemia, hypothyroidism, paroxysmal atrial fibrillation, and osteoarthritis who presented to the emergency department after a mechanical ground-level fall at home, resulting in right hip pain and inability to ambulate. On arrival, she was hemodynamically stable and neurovascularly intact. Physical exam revealed shortening and external rotation of the right lower extremity, and imaging confirmed a displaced right femoral neck fracture with a nondisplaced right pubic body fracture. Initial labs were notable for mild hyponatremia, elevated BUN, and mild hyperglycemia; urinalysis was positive for nitrites, leukocyte esterase, and bacteriuria, and urine culture later grew E. coli. She was admitted for surgical management and underwent right hip hemiarthroplasty the following morning without intraoperative complications. Intraoperatively, she also received a right shoulder injection for [id number] right shoulder pain, which improved her range of motion postoperatively. Postoperative recovery was uncomplicated; she was maintained on DVT prophylaxis with aspirin, and her pain was managed with acetaminophen and methocarbamol as needed. She was started on IV levofloxacin for her urinary tract infection, which was transitioned to oral therapy upon discharge after sensitivities confirmed E. coli susceptible to levofloxacin. During her hospitalization, she remained hemodynamically stable and progressed well with physical and occupational therapy. She had a return of bowel function and no further evidence of stercoral colitis or fecal impaction, and GI consultation recommended against aggressive bowel interventions. Her Ray catheter was removed as soon as feasible. She remained asymptomatic from her UTI after initiation of antibiotics. Her hemoglobin decreased postoperatively but remained stable without need for transfusion. She was able to participate in therapy and ambulate with assistance, returning toward her baseline functional status. At discharge, her surgical wound was clean, dry, and intact with a hemovac drain removed. She was discharged in stable condition to a rehabilitation facility for continued therapy, with instructions for wound care, continuation of her home medications, completion of her antibiotic course, and follow-up with orthopedics for staple removal and further management. Status at Discharge Functional status at discharge: uses cane/walker Overall status at discharge: patient is progressing back to baseline Time Spent with Patient Time attestation: Total time spent providing and/or coordinating discharge services: Time spent: Greater than 30 minutes Exam Const: General: comfortable and no acute distress HENMT: Face/Nose/Sinus: Normal nares present Mouth: Yes moist mucous membranes Other: tacky mucous membranes Eyes: General: appearance normal, both eyes and all related structures Sclera: sclerae normal Neck: Neck: supple Resp: Effort & Inspection: normal respiratory effort Auscultation: clear to auscultation bilaterally Cardio: Rate: regular rate Rhythm: regular rhythm GI: Inspection: non-distended Auscultation: normal bowel sounds and abnormal bowel sounds (hypo throughout) Skin: General skin exam: normal color and no rashes or lesions noted Neuro: Speech: normal speech Motor exam (neuro): Normal motor muscle tone present throughout Sensory Exam: normal sensation Extrem: Other: R hip surgical dressing CDI, hemovac in place. PMS intact Psych: Mental Status: mental status grossly normal Affect: normal affect DS: Data Data Completed and Pending Completed studies during hospitalization: labs, urine, imaging Labs on day of discharge: Labs from last 24 hours 04/28/25 04:20 WBC 13.3 H RBC 3.32 L Hgb 9.8 L Hct 31.2 L MCV 94.0 MCH 29.5 MCHC 31.4 L RDW 13.7 Plt Count 191 MPV 9.9 Immature Gran % (Auto) 0.9 H Neut % (Auto) 80.4 H Lymph % (Auto) 9.6 L [place] % (Auto) 8.8 H Eos % (Auto) 0.1 Baso % (Auto) 0.2 Lymph # (Auto) 1.27 [place] # (Auto) 1.2 H Eos # (Auto) 0.0 Baso # (Auto) 0.0 Abs Immat Gran (auto) 0.12 H Absolute Neuts (auto) 10.7 H Absolute Nucleated RBC 0.000 Nucleated RBC % 0.0 Sodium 136 L Potassium 4.2 Chloride 106 Carbon Dioxide 25 Anion Gap 5 BUN 16 Creatinine 0.57 L Estim Creat Clear Calc 55 Estimated GFR > 60 Glucose 122 H Calcium 8.4 Total Bilirubin 0.4 AST 79 H ALT 84 H Alkaline Phosphatase 120 Total Protein 7.1 Albumin 3.4 L Preliminary micro results at discharge 04/25/25 14:00 - Preliminary Urine Catheterized Gram negative bacilli isolated Discharge Plan Discharge Attending physician on discharge: Kee Apple Consulting providers: Sandi Perez; Oscar Paulino Discharging Clinician: Sandi Perez Anticipated Discharge Date/Time: 04/28/25 16:00 Patient Disposition: [facility] Activity: as tolerated Diet: regular Discharge Instructions: Per Dr. Paulino, leave right hip mepilex dressing in place for 10 days post-op (05/06), then discontinue and keep a dry dressing in place until post-op day 14 (05/10) when patient returns to office to have marian removed. Continue daily aspirin for 4 weeks post-op, this can be obtained over the counter. You can continue to take Tylenol extra strength (500mg) for pain relief, I am also sending you home with a prescription for a muscle relaxer that you have been taking while in the hospital called methocarbamol (Robaxin), you can take this medication as needed every 8 hours. Continue to take your or antibiotics (Levaquin) for your UTI. Make sure to not take these on an empty stomach due to potentially making you nauseous. Continue to check your blood pressure and blood sugar at home if applicable. Keep your scheduled appts with your primary care provider and any specialist that you may see. Return to the emergency department if you develop sudden shortness of breath, chest pain, a fever of greater than 101.5, or nausea, vomiting, abd pain, or di arrhea that does not go away. Follow-up with your primary care provider within 1-2 weeks, they will want to be updated on your inpatient stay in the hospital. Thank you for choosing [facility] for your healthcare needs. Patient Language: Slovenian Follow-up/Referrals: Josh Alcantar MD [Primary Care Provider, Internal Medicine] - 2 Weeks Oscar Paulino MD [Physician, Orthopedics] - 05/09/25 Discharge Medications: New aspirin 81 mg Tablet,Delayed Release (Dr/Ec) 81 mg PO Q12HR 30 Days Qty: 60 0RF Patient Comments: 30 days Continued metoprolol tartrate 100 mg tablet 100 mg PO Q12H amlodipine 10 mg tablet 10 mg PO DAILY acetaminophen [Tylenol Extra Strength] 500 mg tablet 500 mg PO Q6H PRN (Reason: pain (scale score 1-3)) cyanocobalamin (vitamin B-12) 1,000 mcg capsule 1,000 mcg PO DAILY methocarbamol 500 mg Tablet 500 mg PO Q6H PRN (Reason: muscle spasm) Qty: 10 0RF levofloxacin 750 mg tablet 750 mg PO DAILY 4 Days Qty: 4 0RF Rx Instructions: x4 days valsartan 320 mg tablet See Rx Instructions .ROUTE .COMPLEX Qty: 90 2RF Dose Instruction: TAKE 1 TABLET BY MOUTH EVERY DAY Rx Instructions: TAKE 1 TABLET BY MOUTH EVERY DAY cholecalciferol (vitamin D3) 50 mcg (2,000 unit) capsule 50 mcg PO DAILY Qty: 90 2RF duloxetine 60 mg capsule,delayed release(DR/EC) 60 mg PO DAILY Qty: 90 2RF celecoxib 200 mg capsule See Rx Instructions .ROUTE .COMPLEX Qty: 90 2RF Dose Instruction: TAKE 1 CAPSULE BY MOUTH EVERY DAY Rx Instructions: TAKE 1 CAPSULE BY MOUTH EVERY DAY levothyroxine 50 mcg tablet See Rx Instructions .ROUTE .COMPLEX Qty: 90 2RF Dose Instruction: TAKE 1 TABLET BY MOUTH EVERY DAY Rx Instructions: TAKE 1 TABLET BY MOUTH EVERY DAY rosuvastatin 10 mg tablet See Rx Instructions .ROUTE .COMPLEX Qty: 90 2RF Dose Instruction: TAKE 1 TABLET BY MOUTH EVERY DAY Rx Instructions: TAKE 1 TABLET BY MOUTH EVERY DAY Date of admission: 04/25/25 14:15 Primary Care Provider: Josh Alcantar Admitting Provider: Kee Apple Attending physician on admission: Kee Apple Condition: Stable Quality VTE Prophylaxis VTE prophylaxis: mechanical ordered Hospitalist MIPS Heart Failure (Exclusion) Patient has history of Heart Transplant or Left Ventricular Assistive Device?: No IF YES, STOP HERE Heart Failure (Qualifier) Patient has current or prior documentation of LVEF less than or equal to 40%, or mod/servere depressed LVSF?: No IF NO, STOP HERE
== END 2025-04-28 14:15 | DRG 956 ==
LOC: ANHED 11:45 → ANH2MED 12:14
PROVIDERS: Nurse Practitioner Gerontology; Orthopaedic Surgery; Admitting Provider Student in an Organized Health Care Education/Training Program; Emergency Provider Physician Assistant; PCP Emergency Medicine
PROC: 3E0U33Z Introduction of Anti-inflammatory into Joints, Percutaneous Approach (ICD-10-PCS; CPT 27125; principal; 2025-04-26 08:00)
DX: S72.001A Fracture of unspecified part of neck of right femur, initial encounter for closed fracture (principal); S32.501A Unspecified fracture of right pubis, initial encounter for closed fracture; E87.1 Hypo-osmolality and hyponatremia; N39.0 Urinary tract infection, site not specified; B96.20 Unspecified Escherichia coli [E. coli] as the cause of diseases classified elsewhere; M19.011 Primary osteoarthritis, right shoulder; W18.30XA Fall on same level, unspecified, initial encounter; E03.9 Hypothyroidism, unspecified; E78.2 Mixed hyperlipidemia; I10 Essential (primary) hypertension; I48.0 Paroxysmal atrial fibrillation; K56.41 Fecal impaction; Z87.891 Personal history of nicotine dependence; Z79.82 Long term (current) use of aspirin
CPT/HCPCS: 36415; 70450; 71045; 72125; 72170; 72192; 73030; 73502; 80048; 80053; 81001; 84484; 85014; 85018; 85025; 85610; 85730; 87086; 87186; 93005; 96365; 96375; 96376; 97110; 97116; 97162; 97166; 97530; 97535; 99285; A9270; C1776; G0378; J1100; J1171; J1956; J2003; J2004; J2270; J2405; J2704; J3010; J3301; J3373; J7050; J7120